=== PATIENT | female | born 1975 | race Caucasian/White ===

== ENCOUNTER 2019-09-18 18:14 | Emergency (ER) | payer OTHER, SELFPAY ==
[2019-09-18 18:27] VITALS: BP 118/78; PULSE 94; RESP 16; TEMP 37.8; O2SAT 100
--- NOTE | 2019-09-18 18:39 | ED.UPPEXIN ---
HPI - Extremity Injury (Upper) General Chief Complaint: Upper Respiratory Infection Stated Complaint: Sore throat Time Seen by Provider: 09/18/19 19:02 Source: patient and family History of Present Illness HPI narrative: Patient presents with sore throat and chest congestion. Patient denies any drooling no trouble swallowing no fever. Patient states she is normally healthy individual. Related Data Home Medications Medication Instructions Recorded Confirmed albuterol sulfate [ProAir HFA] 1 puff INHALATION QID PRN 09/18/19 09/18/19 hydroxyzine HCl 25 mg PO TID PRN 09/18/19 09/18/19 Allergies Allergy/AdvReac Type Severity Reaction Status Date / Time levofloxacin Allergy Intermediate HIVES Verified 09/18/19 18:56 Sulfa (Sulfonamide Allergy Intermediate HIVES Verified 09/18/19 18:56 Antibiotics) Penicillins Allergy Mild Swelling Verified 09/18/19 18:56 Review of Systems Review of Systems: Narrative: CONSTITUTIONAL: Denies chills, or sweats. Reports fever and generalized body aches EYES: Denies visual changes, redness, or discharge. ENT: Denies otalgia. Reports nasal congestion runny nose and sore throat CARDIOVASCULAR: Denies chest pain, palpitations, or edema. RESPIRATORY: Denies dyspnea. Reports occasional cough GASTROINTESTINAL: Denies abdominal pain, nausea, vomiting, or diarrhea. GENITOURINARY: Denies dysuria or hematuria. SKIN: Denies rash or itching. MUSCULOSKELETAL: Denies back pain, joint pain, or myalgia. Reports generalized body aches NEUROLOGIC: Denies headache, numbness, or weakness. PSYCHIATRIC: Denies anxiety or depression. PMFSH Comments At time of signature, agree with nursing past medical, surgical, social and family history. There is no relevant family history pertinent to the presenting complaint Exam Narrative: Exam Narrative: The patient is a well-developed, well-nourished in no acute distress. SKIN: Skin is warm and dry without erythema, swelling or exudate. There is good turgor. No tenting. HEAD: Atraumatic. Normocephalic. No temporal or scalp tenderness. EYES: Moist and bright. Sclera and conjunctivae normal. No discharge. PERRLA. Extraocular motions intact. Gross visual acuity intact. EARS: Pinna is normal shape and contour. Clear external auditory canals. TM pearly hicks with good cone of light, no erythema or suppuration. Bilateral cerumen noted no gross hearing deficit. NOSE: pink, moist mucosa with good air movement. Clear rhinorrhea without nasal flaring. Septum midline. Mouth: moist mucous membranes. THROAT; mild erythema noted to posterior oropharynx with moderate postnasal drainage. Without exudate or ulceration.. Uvula midline. Normal movement of soft palate. Mild pharyngeal erythremia no trismus no exudate able to open mouth fully NECK: Supple and nontender with full range of motion without discomfort. No meningeal signs. LUNGS: Equal and bilateral breath sounds without wheezes, rales or rhonchi. CHEST: The chest wall is without retractions or use of accessory muscles. HEART: Has a regular rate and rhythm without murmur, gallops, click or rub. ABDOMEN: Soft, nontender with positive active bowel sounds. No rebound tenderness. EXTREMITIES: Without cyanosis, clubbing or edema. Equal 2+ distal pulses and 2 second capillary refill noted. NEUROLOGIC: alert, active, . The patient moves all extremities with normal muscle strength. Normal muscle tone is noted. Normal coordination is noted. NO focal neurological findings noted. Course Vital Signs Vital signs: Vital Signs Temperature 37.8 C H 09/18/19 18:27 Pulse Rate 94 09/18/19 18:27 Respiratory Rate 16 09/18/19 18:27 Blood Pressure 118/78 09/18/19 18:27 Pulse Oximetry 100 09/18/19 18:27 Temperature 37.8 C H 09/18/19 18:27 Pulse Rate 94 09/18/19 18:27 Respiratory Rate 16 09/18/19 18:27 Blood Pressure 118/78 09/18/19 18:27 Pulse Oximetry 100 09/18/19 18:27 MDM - Extremity Injury (Upper) Differentia
== END 2019-09-18 19:40 | disposition home or self-care (01) ==
PROVIDERS: Emergency Provider Nurse Practitioner Family
DX: J40 Bronchitis, not specified as acute or chronic (principal); J02.9 Acute pharyngitis, unspecified; J45.909 Unspecified asthma, uncomplicated
CPT/HCPCS: 87880; 99213; G0463

== ENCOUNTER 2019-09-25 10:50 | Emergency (ER) | payer OTHER, SELFPAY ==
--- NOTE | ~2019-09-25 | XR_ITS ---
XR chest 2V DATE: 09/25/2019 11:30 INDICATION: Chest pain for 3 days. Smoker. TECHNIQUE: 2 views COMPARISON: 06/11/2017 two-view chest FINDINGS: Normal heart size. No hilar or mediastinal enlargement. Bilateral hyperinflation. No pulmon jamaal infiltrate or consolidation, pleural effusion or pulmonary vascular congestion or pneumothorax. IMPRESSION: Bilateral hyperinflation; otherwise no active cardiopulmonary disease Reviewed, dictated and finalized at location B. IMPRESSION: Bilateral hyperinflation; otherwise no active cardiopulmonary disea se
[2019-09-25 10:54] VITALS: BP 115/76; PULSE 88; RESP 16; TEMP 36.5; O2SAT 99
--- NOTE | 2019-09-25 11:18 | ED.URI ---
HPI - URI/Sore Throat General Chief Complaint: Upper Respiratory Infection Stated Complaint: sore throat and chest congest Time Seen by Provider: 09/25/19 11:18 Source: patient and family History of Present Illness HPI Narrative: Patient reports worsening chest congestion and cough and right-sided rib pain. Patient presents today with concerns that she might have pneumonia. Patient denies any fever denies any shortness of breath denies any recent travel denies any known exposure to corvid 19. Patient is a longtime pack-a-day smoker. Patient complains of postnasal drainage. But does not take anything [id number] for her symptoms. Patient states she has a few days left of her Keflex that she was given for strep pharyngitis. MD elicited complaint: cough, rhinorrhea and nasal congestion Related Data Home Medications Medication Instructions Recorded Confirmed albuterol sulfate [ProAir HFA] 1 puff INHALATION QID PRN 09/18/19 09/25/19 hydroxyzine HCl 25 mg PO TID PRN 09/18/19 09/25/19 Allergies Allergy/AdvReac Type Severity Reaction Status Date / Time levofloxacin Allergy Intermediate HIVES Verified 09/18/19 18:56 Sulfa (Sulfonamide Allergy Intermediate HIVES Verified 09/18/19 18:56 Antibiotics) Penicillins Allergy Mild Swelling Verified 09/18/19 18:56 Review of Systems Review of Systems: Narrative: CONSTITUTIONAL: Denies chills, or sweats. Reports fever and generalized body aches EYES: Denies visual changes, redness, or discharge. ENT: Denies otalgia. Reports nasal congestion runny nose and sore throat CARDIOVASCULAR: Denies chest pain, palpitations, or edema. RESPIRATORY: Denies dyspnea. Reports occasional cough GASTROINTESTINAL: Denies abdominal pain, nausea, vomiting, or diarrhea. GENITOURINARY: Denies dysuria or hematuria. SKIN: Denies rash or itching. MUSCULOSKELETAL: Denies back pain, joint pain, or myalgia. Reports generalized body aches NEUROLOGIC: Denies headache, numbness, or weakness. PSYCHIATRIC: Denies anxiety or depression. PMFSH Comments At time of signature, agree with nursing past medical, surgical, social and family history. There is no relevant family history pertinent to the presenting complaint Exam Narrative: Exam Narrative: The patient is a well-developed, well-nourished in no acute distress. SKIN: Skin is warm and dry without erythema, swelling or exudate. There is good turgor. No tenting. HEAD: Atraumatic. Normocephalic. No temporal or scalp tenderness. EYES: Moist and bright. Sclera and conjunctivae normal. No discharge. PERRLA. Extraocular motions intact. Gross visual acuity intact. EARS: Pinna is normal shape and contour. Clear external auditory canals. TM pearly hicks with good cone of light, no erythema or suppuration. Bilateral cerumen noted no gross hearing deficit. NOSE: pink, moist mucosa with good air movement. Clear rhinorrhea without nasal flaring. Septum midline. Moderate amount of postnasal drainage no pharyngeal erythremia no pharyngeal exudate no trismus able to open mouth fully Mouth: moist mucous membranes. THROAT; mild erythema noted to posterior oropharynx with moderate postnasal drainage. Without exudate or ulceration.. Uvula midline. Normal movement of soft palate. NECK: Supple and nontender with full range of motion without discomfort. No meningeal signs. LUNGS: Equal and bilateral breath sounds without wheezes, rales or rhonchi. CHEST: The chest wall is without retractions or use of accessory muscles. HEART: Has a regular rate and rhythm without murmur, gallops, click or rub. ABDOMEN: Soft, nontender with positive active bowel sounds. No rebound tenderness. EXTREMITIES: Without cyanosis, clubbing or edema. Equal 2+ distal pulses and 2 second capillary refill noted. NEUROLOGIC: alert, active, . The patient moves all extremities with normal muscle strength. Normal muscle tone is noted. Normal coordination is noted. NO focal neurological findings noted. Course Vital Sign
== END 2019-09-25 12:32 | disposition home or self-care (01) ==
PROVIDERS: Emergency Provider Nurse Practitioner Family
DX: J06.9 Acute upper respiratory infection, unspecified (principal); R09.82 Postnasal drip; F17.200 Nicotine dependence, unspecified, uncomplicated; J45.909 Unspecified asthma, uncomplicated
CPT/HCPCS: 71046; 99213; G0463

== ENCOUNTER 2019-11-19 17:29 | Emergency (ER) | payer OTHER, SELFPAY ==
--- NOTE | 2019-11-19 17:37 | ED.URI ---
HPI - URI/Sore Throat General Chief Complaint: Upper Respiratory Infection Stated Complaint: sore throat/wheezing Time Seen by Provider: 11/19/19 17:37 Source: patient and RN notes reviewed History of Present Illness HPI Narrative: Patient is a 44-year-old female that presents the urgent care with complaints of possible bronchitis with wheezing and sore throat. Patient was treated 2 months ago for strep and bronchitis at our facility and states that she completed the medication as prescribed. Patient states that symptoms returned 2 weeks ago and has been worsening. Patient states that she has been using her inhaler taking her cetirizine intermittently, and ibuprofen. Patient states that her postnasal drainage is increased and she has intermittent chest tightness with the wheezing. Patient denies of any fever, cough, nausea, vomiting. No other acute complaints. With the exception of high anxiety, no acute distress noted. Patient aware of the plan of care. Related Data Home Medications Medication Instructions Recorded Confirmed albuterol sulfate [ProAir HFA] 1 puff INHALATION QID PRN 09/18/19 11/19/19 hydroxyzine HCl 25 mg PO TID PRN 09/18/19 11/19/19 Allergies Allergy/AdvReac Type Severity Reaction Status Date / Time levofloxacin Allergy Intermediate HIVES Verified 11/19/19 17:32 Sulfa (Sulfonamide Allergy Intermediate HIVES Verified 11/19/19 17:32 Antibiotics) Penicillins Allergy Mild Swelling Verified 11/19/19 17:32 Review of Systems Review of Systems: Narrative: CONSTITUTIONAL: Denies fever, chills, or sweats. EYES: Denies visual changes, redness, or discharge. ENT: Reports of sore throat, postnasal drainage, congestion CARDIOVASCULAR: Denies chest pain, palpitations, or edema. RESPIRATORY: Reports of wheezing and intermittent shortness of breath GASTROINTESTINAL: Denies abdominal pain, nausea, vomiting, or diarrhea. GENITOURINARY: Denies dysuria or hematuria. SKIN: Denies rash or itching. MUSCULOSKELETAL: Denies back pain, joint pain, or myalgia. NEUROLOGIC: Denies headache, numbness, or weakness. All other systems reviewed are negative, except as documented in HPI. PMFSH Comments At the time of my signature, I reviewed and agree with the nursing past medical, surgical, social, and family history. There is no relevant family history pertinent to the patient complaint. Exam Narrative: Exam Narrative: GENERAL: This is a well-nourished, well-developed patient, obvious anxiety HEAD: normocephalic, atraumatic. EYES: PERRL. Sclera clear/white. Vision is grossly intact. EARS: External ears normal, auditory canals clear and without drainage, TMs normal without perforation. Hearing grossly intact. NOSE: External nose normal with no obvious nasal discharge, nares without redness, clear rhinorrhea. THROAT: Mucous membranes moist, mild erythema noted to posterior oropharynx with moderate postnasal drainage without exudate or ulceration NECK: Neck supple CARDIOVASCULAR: Regular rate and rhythm without murmurs, gallops, or rubs. RESPIRATORY: Expiratory wheeze to right upper lobe, otherwise clear SKIN: warm, intact with no suspicious lesions or rash, good texture and turgor. NEURO: awake, alert, and oriented to person, place and time. There were no obvious focal neurologic abnormalities. EXTREMITIES: No clubbing, cyanosis, or edema. Course Vital Signs Vital signs: Vital Signs Temperature 99.7 F H 11/19/19 17:43 Pulse Rate 85 11/19/19 17:43 Respiratory Rate 18 11/19/19 17:43 Blood Pressure 125/76 11/19/19 17:43 Pulse Oximetry 100 11/19/19 17:43 Temperature 99.7 F H 11/19/19 17:43 Pulse Rate 85 11/19/19 17:43 Respiratory Rate 18 11/19/19 17:43 Blood Pressure 125/76 11/19/19 17:43 Pulse Oximetry 100 11/19/19 17:43 Reviewed MDM - URI/Sore Throat MDM Narrative Medical decision making narrative: Reviewed lab results with the patient. She is aware that strep swab was negative. We will c
[2019-11-19 17:43] VITALS: BP 125/76; PULSE 85; RESP 18; TEMP 37.6; O2SAT 100
== END 2019-11-19 18:05 | disposition home or self-care (01) ==
PROVIDERS: Emergency Provider Nurse Practitioner Family; PCP Family Medicine
DX: J40 Bronchitis, not specified as acute or chronic (principal); J02.9 Acute pharyngitis, unspecified
CPT/HCPCS: 87081; 87880; 99213; G0463

== ENCOUNTER 2020-05-16 17:39 | Emergency (ER) | payer OTHER, SELFPAY ==
[2020-05-16 17:45] VITALS: BP 106/65; PULSE 100; RESP 20; TEMP 36.9; O2SAT 98
--- NOTE | 2020-05-16 18:03 | ED.URI ---
HPI - URI/Sore Throat General Chief Complaint: Ear Stated Complaint: ear infection Time Seen by Provider: 05/16/20 17:51 Source: patient and RN notes reviewed Mode of arrival: ambulatory Limitations: no limitations History of Present Illness HPI Narrative: Patient presents today complaining of a 1 week history of left ear pain radiating to the left neck, worse over the last 2 days. Associated symptoms include decreased hearing, popping, wetness inside the ear canal. Currently rates her pain 4/10 and has been taking ibuprofen and sinus medication without relief. She has been off a course of clindamycin for the last 2 weeks related to a dental abscess. MD elicited complaint: other (Left ear pain) Related Data Home Medications Medication Instructions Recorded Confirmed albuterol sulfate [ProAir HFA] 1 puff INHALATION QID PRN 09/18/19 05/16/20 albuterol sulfate 2.5 mg CONTINUOUS NEBULIZATION 05/16/20 05/16/20 Q4-6H PRN famotidine 40 mg PO DAILY 05/16/20 05/16/20 fluticasone propion-salmeterol INHALATION 05/16/20 [Wixela Inhub] montelukast mg 05/16/20 omeprazole 05/16/20 Allergies Allergy/AdvReac Type Severity Reaction Status Date / Time levofloxacin Allergy Intermediate HIVES Verified 05/16/20 17:58 Sulfa (Sulfonamide Allergy Intermediate HIVES Verified 05/16/20 17:58 Antibiotics) Penicillins Allergy Mild Swelling Verified 05/16/20 17:58 Review of Systems Review of Systems: Narrative: CONSTITUTIONAL: Denies body aches, fever, chills, or sweats. EYES: Denies visual changes, redness, or discharge. ENT: Denies rhinorrhea, congestion, sore throat. + Left ear pain, decreased hearing, popping CARDIOVASCULAR: Denies chest pain, palpitations, or edema. RESPIRATORY: Denies cough or dyspnea. GASTROINTESTINAL: Denies abdominal pain, nausea, vomiting, or diarrhea. GENITOURINARY: Denies dysuria or hematuria. SKIN: Denies rash, itching, or wounds. MUSCULOSKELETAL: Denies back pain, joint pain, or myalgia. NEUROLOGIC: Denies headache, numbness, tingling, or weakness. PSYCH: Denies depression or anxiety. PMFSH Comments At time of signature, I have reviewed and agree with nursing past medical, surgical, social and family history unless otherwise noted. Please see nursing chart for further information. There is no relevant family history pertinent to the presenting complaint Exam Narrative: Exam Narrative: GENERAL: Well-appearing, well-nourished, and in no acute distress. HEAD: Normocephalic, atraumatic. EYES: EOMI. No redness or drainage. Conjunctivae normal. ENT: Mucous membranes pink and moist. Nares clear. No rhinorrhea. Right TM normal. Left TM intact and retracted without signs of infection. No fluid or material in the canal. No movement tenderness. Throat normal. Uvula midline. NECK: Normal AROM. Supple. No lymphadenopathy. CHEST: No respiratory distress. EXTREMITIES: Normal range of motion. No edema. SKIN: Warm, dry, no rash. Capillary refill normal. Normal skin turgor. NEURO: No focal deficits. Alert and oriented x3. Gait steady. PSYCH: Normal affect. No signs of depression or anxiety. Course Vital Signs Vital signs: Vital Signs Temperature 98.5 F 05/16/20 17:45 Pulse Rate 100 05/16/20 17:45 Respiratory Rate 20 05/16/20 17:45 Blood Pressure 106/65 05/16/20 17:45 Pulse Oximetry 98 05/16/20 17:45 Temperature 98.5 F 05/16/20 17:45 Pulse Rate 100 05/16/20 17:45 Respiratory Rate 20 05/16/20 17:45 Blood Pressure 106/65 05/16/20 17:45 Pulse Oximetry 98 05/16/20 17:45 Reviewed MDM - URI/Sore Throat Differential Diagnosis Differential diagnosis: Likely other (Otitis media, otitis externa, ruptured TM, serous otitis, eustachian tube dysfunction, cerumen impaction) Critical Care Time Critical Care Time Critical Care Time: No Discharge Plan Discharge Clinical Impression: Retracted ear drum Qualifiers: Laterality: left Qualified Code(s): H73.892 - Other
== END 2020-05-16 18:05 | disposition home or self-care (01) ==
PROVIDERS: Emergency Provider Nurse Practitioner; PCP Family Medicine
DX: H73.892 Other specified disorders of tympanic membrane, left ear (principal); J45.909 Unspecified asthma, uncomplicated
CPT/HCPCS: 99213; G0463

== ENCOUNTER 2020-05-26 08:14 | Emergency (ER) | payer OTHER, SELFPAY ==
[2020-05-26 08:20] VITALS: BP 129/73; PULSE 83; RESP 18; TEMP 37; O2SAT 100
[2020-05-26 08:28] VITALS: BP 129/73; PULSE 83; RESP 18; TEMP 37; O2SAT 100
--- NOTE | 2020-05-26 08:37 | ED.URI ---
HPI - URI/Sore Throat General Chief Complaint: Upper Respiratory Infection Stated Complaint: coughing/sinus congestion Source: patient Mode of arrival: ambulatory Limitations: no limitations History of Present Illness HPI Narrative: Patient is a 45-year-old female who presents complaining of purulent sinus drainage, ear pain, facial pressure x10+ days. She reports recently treated for a dental infection approximately 6 weeks ago and reports retracted tympanic membrane which she was treating with [id number] decongestants. She denies fever, she denies sore throat. She reports a history of sinusitis and bronchitis. She denies chest pain or shortness of breath. MD elicited complaint: nasal congestion and sinus pain Related Data Home Medications Medication Instructions Recorded Confirmed albuterol sulfate [ProAir HFA] 1 puff INHALATION QID PRN 09/18/19 05/26/20 albuterol sulfate 2.5 mg CONTINUOUS NEBULIZATION 05/16/20 05/26/20 Q4-6H PRN fluticasone propion-salmeterol 1 inh INHALATION BID 05/16/20 05/26/20 [Wixela Inhub] montelukast 10 mg PO DAILY 05/16/20 05/26/20 omeprazole 40 mg PO DAILY 05/16/20 05/26/20 Allergies Allergy/AdvReac Type Severity Reaction Status Date / Time levofloxacin Allergy Intermediate HIVES Verified 05/26/20 08:27 Sulfa (Sulfonamide Allergy Intermediate HIVES Verified 05/26/20 08:27 Antibiotics) Penicillins Allergy Mild Swelling Verified 05/26/20 08:27 Review of Systems Review of Systems: Narrative: CONSTITUTIONAL: Denies fever, chills, or sweats. EYES: Denies visual changes, redness, or discharge. ENT: Reports rhinorrhea, congestion and left otalgia. CARDIOVASCULAR: Denies chest pain, palpitations, or edema. RESPIRATORY: Reports intermittent cough, denies dyspnea. GASTROINTESTINAL: Denies abdominal pain, nausea, vomiting, or diarrhea. GENITOURINARY: Denies dysuria or hematuria. SKIN: Denies rash or itching. MUSCULOSKELETAL: Denies back pain, joint pain, or myalgia. NEUROLOGIC: Denies headache, numbness, dizziness, or weakness. PSYCHIATRIC: Denies anxiety or depression. [facility] Past Medical History Medical History Anxiety Asthma Sinusitis per patient history UTI (urinary tract infection) Surgical History Surgical History History of orthopedic surgery Social History Social History (Updated 05/26/20 @ 08:42 by KIANNA Burton) Smoking status: Current every day smoker Tobacco type: cigarettes Alcohol intake: current Alcohol use details: Occasional Substance use: never Exam Narrative: Exam Narrative: GENERAL: Well-appearing, well-nourished, and in no acute distress. HEAD: Normocephalic, atraumatic. EYES: No redness or drainage. Conjunctiva are normal. ENT: Mucous membranes pink and moist. Nares clear. Positive rhinorrhea. TMs normal bilaterally. Throat normal mild erythema. Uvula midline. Left maxillary sinus tenderness with palpation NECK: AROM. Supple. No lymphadenopathy. CHEST: No respiratory distress. Clear to auscultation. HEART: Regular rate and rhythm. EXTREMITIES: Normal range of motion. SKIN: Warm, dry, no rash. NEURO: No focal deficits. Alert and oriented x3. Gait steady. PSYCH: Normal affect. No signs of depression or anxiety. Course Vital Signs Vital signs: Vital Signs Temperature 37.0 C 05/26/20 08:20 Pulse Rate 83 05/26/20 08:20 Respiratory Rate 18 05/26/20 08:20 Blood Pressure 129/73 05/26/20 08:20 Pulse Oximetry 100 05/26/20 08:20 Temperature 37.0 C 05/26/20 08:28 Pulse Rate 83 05/26/20 08:28 Respiratory Rate 18 05/26/20 08:28 Blood Pressure 129/73 05/26/20 08:28 Pulse Oximetry 100 05/26/20 08:28 Reviewed. Patient has been instructed to follow-up with her PCP regarding her blood pressure. MDM - URI/Sore Throat MDM Narrative Medical decision making narrative: Patie
== END 2020-05-26 08:50 | disposition home or self-care (01) ==
PROVIDERS: Emergency Provider Nurse Practitioner; PCP Family Medicine
DX: J01.00 Acute maxillary sinusitis, unspecified (principal); F17.210 Nicotine dependence, cigarettes, uncomplicated; J45.909 Unspecified asthma, uncomplicated
CPT/HCPCS: 99213; G0463

== ENCOUNTER 2020-12-07 11:41 | Emergency (ER) | payer OTHER, SELFPAY ==
[2020-12-07 11:45] VITALS: BP 119/75; PULSE 88; RESP 16; TEMP 37.5; O2SAT 100
--- NOTE | 2020-12-07 12:16 | ED.DENTAL ---
HPI - Dental/Oral General Chief complaint: Dental/Oral Stated complaint: dental pain Time Seen by Provider: 12/07/20 12:16 Source: patient Mode of arrival: ambulatory Limitations: no limitations History of Present Illness HPI Narrative: Karena Cross is a 45 yo female with GERD who comes here with dental pain after using a dental tool tooth repair that was bought [id number] for her tooth 18 on lower left, and tooth for on upper left. She is complaining of radiating pain Into her sinuses, concerned about possible infection pain control Related Data Home Medications Medication Instructions Recorded Confirmed albuterol sulfate [ProAir HFA] 1 puff INHALATION QID PRN 09/18/19 12/07/20 albuterol sulfate 2.5 mg CONTINUOUS NEBULIZATION 05/16/20 12/07/20 Q4-6H PRN montelukast 10 mg PO DAILY 05/16/20 12/07/20 omeprazole 40 mg PO DAILY 05/16/20 12/07/20 fluticasone propion-salmeterol 1 inh INHALATION Q12H 12/07/20 12/07/20 [Wixela Inhub] Allergies Allergy/AdvReac Type Severity Reaction Status Date / Time levofloxacin Allergy Intermediate HIVES Verified 12/07/20 12:11 Sulfa (Sulfonamide Allergy Intermediate HIVES Verified 12/07/20 12:11 Antibiotics) Penicillins Allergy Mild Swelling Verified 12/07/20 12:11 Review of Systems Review of Systems: Narrative: CONSTITUTIONAL: Denies fever, chills, sweats. EYES: Denies visual changes, redness, discharge. ENT: Denies rhinorrhea, congestion, sore throat, otalgia. Tooth pain in left lower molar and left upper bicep CARDIOVASCULAR: Denies chest pain, palpitations, edema. RESPIRATORY: Denies dyspnea, wheezing, cough GASTROINTESTINAL: Denies abdominal pain, nausea, vomiting, diarrhea. GENITOURINARY: Denies dysuria, hematuria, abnormal discharge SKIN: Denies rash or itching. NEUROLOGIC: Denies numbness, or focal weakness. PSYCHIATRIC: Denies anxiety or depression. [facility] Past Medical History Medical History Anxiety Asthma Sinusitis per patient history UTI (urinary tract infection) Surgical History Surgical History History of orthopedic surgery Social History Social History Smoking status: Current every day smoker Tobacco type: cigarettes Alcohol intake: current Substance use: never Comments At time of signature, I agree with nursing past medical, surgical, social and family history. There is no relevant family history pertinent to the presenting complaint. Exam Narrative: Exam Narrative: GENERAL: This is a well-nourished, well-developed patient, in mild distress. HEAD: normocephalic, atraumatic. EYES:Sclera clear/white. Vision is grossly intact. EARS: External ears normal. Hearing grossly intact. NOSE: External nose normal without nasal discharge, nares without redness, no rhinorrhea. THROAT: posterior pharynx normal, mucous membranes appear dry; repair obvious in lower left and upper left teeth she is complaining of pain in NECK: Neck supple, non-tender CARDIOVASCULAR: Regular rate and rhythm without murmurs, gallops, or rubs. RESPIRATORY: Clear to auscultation. Breath sounds equal bilaterally. No wheezes, rales, or rhonchi. GASTROINTESTINAL: Abdomen soft, non-tender, SKIN: warm, intact with no suspicious lesions or rash, good texture and turgor. NEURO: awake, alert, and oriented to person, place and time. There were no obvious focal neurologic abnormalities. Steady gait EXTREMITIES: Normal range of motion. BACK: Nontender without deformity Course Course Emergency Course: Patient here for dental pain after placing dental repair in 2 of her teeth Started on clindamycin although patient states the clindamycin makes her nauseated she cannot take penicillin so given 10 clindamycin with caveat to eat with food and use her GERD medication and Tums Tylenol 3 for pain Follow-up with dentist V
== END 2020-12-07 12:43 | disposition home or self-care (01) ==
PROVIDERS: Emergency Provider Nurse Practitioner; PCP Family Medicine
DX: K08.89 Other specified disorders of teeth and supporting structures (principal); K04.7 Periapical abscess without sinus; J45.909 Unspecified asthma, uncomplicated; F17.210 Nicotine dependence, cigarettes, uncomplicated
CPT/HCPCS: 99213; G0463

== ENCOUNTER 2020-12-18 16:01 | Emergency (ER) | payer OTHER, SELFPAY ==
--- NOTE | 2020-12-18 16:02 | ED.SKABFB ---
HPI - Skin/Abscess/Foreign Bdy General Chief complaint: Wound/Laceration Stated complaint: Insect Bite Time Seen by Provider: 12/18/20 16:03 Source: patient and RN notes reviewed History of Present Illness HPI narrative: Patient is a 45-year-old female who presents the urgent care with complaints of possible tick bites to the right and left leg. Patient states that she was [place] the weekend and on Monday she noticed bites to the upper right leg near the groin and behind the left knee. Patient states that she has been using hydrocortisone to the areas without much relief. Reports of pain to the area of the right groin. No other acute complaints. Denies of any fever, chills, nausea, vomiting. No acute distress noted. Patient aware of the plan of care. Some parts of this dictation were generated by voice recognition software and may contain typographical and/or grammatical inaccuracies. Related Data Home Medications Medication Instructions Recorded Confirmed albuterol sulfate [ProAir HFA] 1 puff INHALATION QID PRN 09/18/19 12/18/20 albuterol sulfate 2.5 mg CONTINUOUS NEBULIZATION 05/16/20 12/18/20 Q4-6H PRN omeprazole 40 mg PO DAILY 05/16/20 12/18/20 fluticasone propion-salmeterol 1 inh INHALATION Q12H 12/07/20 12/18/20 [Wixela Inhub] cetirizine 10 mg PO DAILY 12/18/20 12/18/20 famotidine 40 mg PO DAILY 12/18/20 12/18/20 montelukast 10 mg PO DAILY 12/18/20 12/18/20 Allergies Allergy/AdvReac Type Severity Reaction Status Date / Time levofloxacin Allergy Intermediate HIVES Verified 12/18/20 16:15 Sulfa (Sulfonamide Allergy Intermediate HIVES Verified 12/18/20 16:15 Antibiotics) Penicillins Allergy Mild Swelling Verified 12/18/20 16:15 Review of Systems Review of Systems: Narrative: CONSTITUTIONAL: Denies fever, chills, or sweats. EYES: Denies visual changes, redness, or discharge. ENT: Denies rhinorrhea, congestion, sore throat, or otalgia. CARDIOVASCULAR: Denies chest pain, palpitations, or edema. RESPIRATORY: Denies cough or dyspnea. GASTROINTESTINAL: Denies abdominal pain, nausea, vomiting, or diarrhea. GENITOURINARY: Denies dysuria or hematuria. SKIN: Reports of bug bites to the right groin and behind the left knee MUSCULOSKELETAL: Denies back pain, joint pain, or myalgia. NEUROLOGIC: Denies headache, numbness, or weakness. All other systems reviewed are negative, except as documented in HPI. [facility] Past Medical History Medical History Anxiety Asthma Sinusitis per patient history UTI (urinary tract infection) Surgical History Surgical History History of orthopedic surgery Social History Social History Smoking status: Current every day smoker Tobacco type: cigarettes Alcohol intake: current Substance use: never Comments At the time of my signature, I reviewed and agree with the nursing past medical, surgical, social, and family history. There is no relevant family history pertinent to the patient complaint. Exam Narrative: Exam Narrative: GENERAL: This is a well-nourished, well-developed patient, in no apparent distress. HEAD: normocephalic, atraumatic. EYES: PERRL. Sclera clear/white. Vision is grossly intact. EARS: External ears normal NOSE: External nose normal with no obvious nasal discharge, nares without redness, no rhinorrhea. THROAT: Mucous membranes moist NECK: Neck supple CARDIOVASCULAR: Regular rate and rhythm without murmurs, gallops, or rubs. RESPIRATORY: Clear to auscultation. Breath sounds equal bilaterally. No wheezes, rales, or rhonchi. SKIN: Mildly raised erythemic insect bites with slightly surrounding 1 cm erythema noted to the right upper leg near the right groin (2) and behind the left knee; no obvious bull's-eye rash noted NEURO: awake, alert, and oriented to person, p
[2020-12-18 16:11] VITALS: BP 110/80; PULSE 92; RESP 16; TEMP 36.9; O2SAT 100
== END 2020-12-18 16:25 | disposition home or self-care (01) ==
PROVIDERS: Emergency Provider Nurse Practitioner Family; PCP Family Medicine
DX: S70.361A Insect bite (nonvenomous), right thigh, initial encounter (principal); W57.XXXA Bitten or stung by nonvenomous insect and other nonvenomous arthropods, initial encounter; F17.210 Nicotine dependence, cigarettes, uncomplicated
CPT/HCPCS: 99213; G0463

== ENCOUNTER 2021-02-10 18:14 | Emergency (ER) | payer OTHER, SELFPAY ==
--- NOTE | 2021-02-10 18:17 | WPDEDEXPGENP ---
HPI - General Ped General Chief complaint: Upper Respiratory Infection Stated complaint: Sneezing, Neck pain and Chest pain Time Seen by Provider: 02/10/21 18:33 Source: family and RN notes reviewed Mode of arrival: ambulatory Limitations: no limitations Nursing Documentation: reviewed/agree History of Present Illness HPI narrative: 25-year-old female with history of asthma presents with concern for 2-day history of sneezing, postnasal drainage, itchy throat, occasional cough, chest pressure, neck muscle soreness. She denies fever, body aches, chills, sweats. Reports she was recently seen in the emergency department for chest pain and had a work-up, including a chest x-ray and EKG, which were all normal. Reports she recently took a round of clindamycin for a tooth infection, which she is finishing up tomorrow. Reports she stopped taking her allergy medication while she was taking the antibiotic. Reports she took a dose of Benadryl and used her albuterol inhaler earlier this afternoon. She denies trouble breathing. Reports she had Covid in September. MD complaint: Nasal congestion Related Data Home Medications Medication Instructions Recorded Confirmed albuterol sulfate [ProAir HFA] 1 puff INHALATION QID PRN 09/18/19 02/10/21 albuterol sulfate 2.5 mg CONTINUOUS NEBULIZATION 05/16/20 02/10/21 Q4-6H PRN cetirizine 10 mg PO DAILY 12/18/20 02/10/21 famotidine 40 mg PO DAILY 12/18/20 02/10/21 dexlansoprazole [Dexilant] 60 mg PO DAILY 02/10/21 02/10/21 hydroxyzine HCl 25 mg PO TID 02/10/21 02/10/21 Allergies Allergy/AdvReac Type Severity Reaction Status Date / Time levofloxacin Allergy Intermediate HIVES Verified 02/10/21 18:36 Sulfa (Sulfonamide Allergy Intermediate HIVES Verified 02/10/21 18:36 Antibiotics) Penicillins Allergy Mild Swelling Verified 02/10/21 18:36 Pediatric Review of Systems Review of Systems: CONSTITUTIONAL: Denies malaise, chills, sweats, or fever. EYES: Denies visual changes, redness, or discharge. ENT: Reports rhinorrhea, congestion, sneezing, itchy throat. Denies sinus pain, otalgia and sore throat. CARDIOVASCULAR: Denies chest pain, palpitations, or edema. RESPIRATORY: Reports cough. Denies dyspnea. GASTROINTESTINAL: Denies abdominal pain, nausea, vomiting, diarrhea SKIN: Denies rash or itching. MUSCULOSKELETAL: Reports myalgia. NEUROLOGIC: Denies headache. All systems ED: reviewed and negative except as stated PMFSH Past Medical History Medical History Anxiety Asthma Sinusitis per patient history UTI (urinary tract infection) Surgical History Surgical History History of orthopedic surgery Social History Social History Smoking status: Current every day smoker Tobacco type: cigarettes Alcohol intake: current Alcohol use details: Occasional Substance use: never Comments At time of signature, agree with nursing past medical, surgical, social and family history. There is no relevant family history pertinent to the presenting complaint Pediatric Exam Narrative: Physical exam: GENERAL: Well-appearing, well-nourished, and in no acute distress. HEAD: Normocephalic EYES: PERRLA, conjunctivae clear ENT: Nares clear, turbinates edematous and erythematous, clear discharge. Mucous membranes moist. TM pearly padron with dull light reflex bilaterally; no tragal tenderness. Oropharynx not erythematous without lesions. Tonsils not enlarged and without exudate, no drooling, no hoarseness, no trismus, uvula midline. NECK: Supple. No lymphadenopathy CHEST: Clear to auscultation, breath sounds equal. No wheezing, rhonchi, rales, or stridor. No respiratory distress, speaks in full sentences. HEART: Regular rate and rhythm. No murmur heard. SKIN: Warm, dry, no rash. NEURO: Alert and oriented x3. PSYCH: Normal mood and affect Ge
[2021-02-10 18:21] VITALS: BP 110/67; PULSE 72; RESP 14; TEMP 37.6; O2SAT 100
== END 2021-02-10 19:00 | disposition home or self-care (01) ==
PROVIDERS: Emergency Provider Nurse Practitioner; PCP Family Medicine
DX: J00 Acute nasopharyngitis [common cold] (principal); J01.90 Acute sinusitis, unspecified; Z20.822 Contact with and (suspected) exposure to COVID-19; F17.210 Nicotine dependence, cigarettes, uncomplicated; J45.909 Unspecified asthma, uncomplicated
CPT/HCPCS: 87426; 99213; C9803; G0463

== ENCOUNTER 2021-02-26 13:38 | Emergency (ER) | payer OTHER, SELFPAY ==
[2021-02-26 13:43] VITALS: BP 119/73; PULSE 97; RESP 16; TEMP 37.2; O2SAT 99
--- NOTE | 2021-02-26 14:14 | ED.SKABFB ---
HPI - Skin/Abscess/Foreign Bdy General Chief complaint: Skin/Abscess/Foreign Body Stated complaint: rash on leg Time Seen by Provider: 02/26/21 14:00 Source: patient and RN notes reviewed Mode of arrival: ambulatory Limitations: no limitations History of Present Illness HPI narrative: 45-year-old female presents with concern for itchy rash on her left lower leg. She reports she [place] and had what she thought was bug bites, noticed later a growing itchy rash on the left lower leg. Reports she has been putting [id number] hydrocortisone and calamine lotion with little relief. She denies any trouble breathing, wheezing, swollen lips, swollen tongue. She reports she also has recently been taking a Z-Robert for dental infection. Denies any history of allergies to antibiotics. She denies generalized rash. MD complaint: rash Related Data Home Medications Medication Instructions Recorded Confirmed albuterol sulfate [ProAir HFA] 1 puff INHALATION QID PRN 09/18/19 02/26/21 albuterol sulfate 2.5 mg CONTINUOUS NEBULIZATION 05/16/20 02/26/21 Q4-6H PRN cetirizine 10 mg PO DAILY 12/18/20 02/26/21 famotidine 40 mg PO DAILY 12/18/20 02/26/21 dexlansoprazole [Dexilant] 60 mg PO DAILY 02/10/21 02/26/21 hydroxyzine HCl 25 mg PO TID 02/10/21 02/26/21 Allergies Allergy/AdvReac Type Severity Reaction Status Date / Time levofloxacin Allergy Intermediate HIVES Verified 02/26/21 13:53 Sulfa (Sulfonamide Allergy Intermediate HIVES Verified 02/26/21 13:53 Antibiotics) Penicillins Allergy Mild Swelling Verified 02/26/21 13:53 Review of Systems Review of Systems: CONSTITUTIONAL: Denies malaise, chills, sweats, or fever. ENT: Denies swollen lips, swollen tongue CARDIOVASCULAR: Denies chest pain, palpitations, or edema. RESPIRATORY: Denies cough or dyspnea. SKIN: Reports itchy rash on the left lower leg MUSCULOSKELETAL: Denies myalgia. All systems reviewed & are unremarkable except as noted in HPI and below PMFSH Past Medical History Medical History Anxiety Asthma Sinusitis per patient history UTI (urinary tract infection) Surgical History Surgical History History of orthopedic surgery Social History Social History Smoking status: Current every day smoker Tobacco type: cigarettes Alcohol intake: current Alcohol use details: Occasional Substance use: never Comments At time of signature, agree with nursing past medical, surgical, social and family history. There is no relevant family history pertinent to the presenting complaint Exam Narrative: GENERAL: Well-appearing, well-nourished, and in no acute distress. HEAD: Normocephalic, atraumatic. EYES: PERRLA, conjunctivae clear ENT: Mucous membranes moist. NECK: Supple. No lymphadenopathy CHEST: Clear to auscultation. No respiratory distress. HEART: Regular rate and rhythm. SKIN: Warm, dry. Patch of papular rash noted to the left lower leg consistent with contact dermatitis NEURO: Alert and oriented x3. PSYCH: Normal mood and affect Course Course Emergency Course: Discussed with patient drug eruption versus contact dermatitis, at this time rash appears to be contact dermatitis, rash is not generalized, rash is localized to one area and is particularly itchy, appears consistent with contact dermatitis. Patient is aware of diagnosis, understands and agrees to treatment plan. Anticipatory guidance given. Patient agrees to follow-up as directed and is aware of reasons to seek care at the emergency department. Portions of this record may have been created with voice recognition software Vital Signs Vital signs: Vital Signs Temperature 99 F 02/26/21 13:43 Pulse Rate 97 02/26/21 13:43 Respiratory Rate 16 02/26/21 13:43 Blood Pressure 119/73 02/26/21 13:43 Pulse
== END 2021-02-26 14:18 | disposition home or self-care (01) ==
PROVIDERS: Emergency Provider Nurse Practitioner; PCP Family Medicine
DX: L24.7 Irritant contact dermatitis due to plants, except food (principal); F17.210 Nicotine dependence, cigarettes, uncomplicated; J45.909 Unspecified asthma, uncomplicated; F41.9 Anxiety disorder, unspecified
CPT/HCPCS: 99213; G0463

== ENCOUNTER 2021-03-12 12:50 | Emergency (ER) | payer OTHER, SELFPAY ==
--- NOTE | 2021-03-12 12:58 | ED.DENTAL ---
HPI - Dental/Oral General Chief complaint: Dental/Oral Stated complaint: tooth pain Time Seen by Provider: 03/12/21 13:00 Source: patient and RN notes reviewed History of Present Illness HPI Narrative: Patient is a 45-year-old female who presents the urgent care with complaints of dental pain that started approximately 2 to 3 days ago. Patient states that she has a salty taste in her mouth . Patient states that she had 2 teeth pulled, upper left and lower left, 1 week ago today. Patient states that she called her dentist and they were unable to see her until Monday. Patient denies of any fevers, nausea, vomiting. States that she has been taking ibuprofen for the pain. No other acute complaints. No acute distress noted. Patient read a plan of care. Some parts of this dictation were generated by voice recognition software and may contain typographical and/or grammatical inaccuracies. Related Data Home Medications Medication Instructions Recorded Confirmed albuterol sulfate [ProAir HFA] 1 puff INHALATION QID PRN 09/18/19 03/12/21 albuterol sulfate 2.5 mg CONTINUOUS NEBULIZATION 05/16/20 03/12/21 Q4-6H PRN cetirizine 10 mg PO DAILY 12/18/20 03/12/21 famotidine 40 mg PO DAILY 12/18/20 03/12/21 dexlansoprazole [Dexilant] 60 mg PO DAILY 02/10/21 03/12/21 hydroxyzine HCl 25 mg PO TID 02/10/21 03/12/21 Allergies Allergy/AdvReac Type Severity Reaction Status Date / Time levofloxacin Allergy Intermediate HIVES Verified 03/12/21 13:08 Sulfa (Sulfonamide Allergy Intermediate HIVES Verified 03/12/21 13:08 Antibiotics) Penicillins Allergy Mild Swelling Verified 03/12/21 13:08 Review of Systems Review of Systems: CONSTITUTIONAL: Denies fever, chills, or sweats. EYES: Denies visual changes, redness, or discharge. ENT: Denies rhinorrhea, congestion, sore throat, or otalgia. Reports of upper left and lower left dental pain post extraction CARDIOVASCULAR: Denies chest pain, palpitations, or edema. RESPIRATORY: Denies cough or dyspnea. GASTROINTESTINAL: Denies abdominal pain, nausea, vomiting, or diarrhea. GENITOURINARY: Denies dysuria or hematuria. SKIN: Denies rash or itching. MUSCULOSKELETAL: Denies back pain, joint pain, or myalgia. NEUROLOGIC: Denies headache, numbness, or weakness. All other systems reviewed are negative, except as documented in HPI. [facility] Past Medical History Medical History Anxiety Asthma Sinusitis per patient history UTI (urinary tract infection) Surgical History Surgical History History of orthopedic surgery Social History Social History Smoking status: Current every day smoker Tobacco type: cigarettes Alcohol intake: current Alcohol use details: Occasional Substance use: never Comments At the time of my signature, I reviewed and agree with the nursing past medical, surgical, social, and family history. There is no relevant family history pertinent to the patient complaint. Exam Narrative: GENERAL: This is a well-nourished, well-developed patient, in no apparent distress. HEAD: normocephalic, atraumatic. EYES: PERRL. Sclera clear/white. Vision is grossly intact. EARS: External ears normal NOSE: External nose normal with no obvious nasal discharge, nares without redness, no rhinorrhea. THROAT: Mucous membranes moist, posterior pharynx clear. DENTAL: Upper left first premolar and lower left first molar extracted with mild surrounding tissue trauma without notable abscess or erythema. Drainage noted from the socket to the upper left NECK: Neck supple, non-tender without lymphadenopathy, masses or thyromegaly. CARDIOVASCULAR: Regular rate and rhythm without murmurs, gallops, or rubs. RESPIRATORY: Clear to auscultation. Breath sounds equal bilaterally. No wheezes, rales, or rhonchi. SKIN: warm, intact with no [place]
[2021-03-12 13:06] VITALS: BP 125/74; PULSE 86; RESP 16; TEMP 37.3; O2SAT 100
[2021-03-12 13:09] VITALS: BP 125/74; PULSE 86; RESP 16; TEMP 37.3; O2SAT 100
== END 2021-03-12 13:25 | disposition home or self-care (01) ==
PROVIDERS: Emergency Provider Nurse Practitioner Family; PCP Family Medicine
DX: K08.89 Other specified disorders of teeth and supporting structures (principal); F41.9 Anxiety disorder, unspecified; F17.210 Nicotine dependence, cigarettes, uncomplicated
CPT/HCPCS: 99213; G0463

== ENCOUNTER 2021-06-28 15:13 | Emergency (ER) | payer OTHER, SELFPAY ==
[2021-06-28 15:19] VITALS: BP 113/67; PULSE 77; RESP 16; TEMP 37.2; O2SAT 100
--- NOTE | 2021-06-28 16:33 | ED.URI ---
HPI - URI/Sore Throat General Chief Complaint: Upper Respiratory Infection Stated Complaint: Chest Congestion/Cough Source: patient and RN notes reviewed Limitations: no limitations History of Present Illness HPI Narrative: The unvaccinated patient, a smoker/nondrinker on inhalers, presents with half week history of cough, sneezing, nasal congestion and occasional wheezing. Her baseline inhaler use is about biweekly-and she is using them more; she's had steroids about annually, never been hospitalized for this. No fever, earache, sore throat; no loss of taste/smell, CP, S OB, vomiting/diarrhea?she had Covid disease in the last year Related Data Home Medications Medication Instructions Recorded Confirmed albuterol sulfate [ProAir HFA] 1 puff INHALATION QID PRN 09/18/19 03/12/21 albuterol sulfate 2.5 mg CONTINUOUS NEBULIZATION 05/16/20 03/12/21 Q4-6H PRN cetirizine 10 mg PO DAILY 12/18/20 03/12/21 famotidine 40 mg PO DAILY 12/18/20 03/12/21 dexlansoprazole [Dexilant] 60 mg PO DAILY 02/10/21 03/12/21 hydroxyzine HCl 25 mg PO TID 02/10/21 03/12/21 Allergies Allergy/AdvReac Type Severity Reaction Status Date / Time levofloxacin Allergy Intermediate HIVES Verified 03/12/21 13:08 Sulfa (Sulfonamide Allergy Intermediate HIVES Verified 03/12/21 13:08 Antibiotics) Penicillins Allergy Mild Swelling Verified 03/12/21 13:08 Review of Systems Review of Systems: General/Constitutional: No weight loss,fever Eyes: N0: Redness,discharge Ears/Nose/Throat: No: Epistaxis,ear discharge Respiratory: Denies: Hemoptysis Gastrointestinal: No Vomiting, Bleeding-rectal Skin: No Lumps, eruption Neurologic: No Focal Weakness,Sz Hematologic: Denies: Petechiae/Purpura Psychiatric: No: Suicida ideationl All Other Systems: Reviewed and Negative PMF Past Medical History Medical History Anxiety Asthma Sinusitis per patient history UTI (urinary tract infection) Surgical History Surgical History History of orthopedic surgery Social History Social History Smoking status: Current every day smoker Tobacco type: cigarettes Alcohol intake: current Alcohol use details: Occasional Substance use: never Comments At time of signature, agree with nursing past medical, surgical, social and family history. There is no relevant family history pertinent to the presenting complaint Exam Narrative: General Appearance: Well appearing, Well nourished EYE: PERRLA, Conjunctiva clear Ears: Auditory canal normal, TM normal Nose: Rhinorrhea, Mucousal erythema Mouth/Throat: MM moist, Uvula midline, Pharyngeal erythema Neck: Supple, No adenopathy Respiratory: No respiratory distress, Breath sounds equal, CTA without wheeze now Cardiovascular: RRR, No JVD Musculoskeletal: Non tender, Normal strength Skin: Warm, Dry Neurological: A&O x3, CN II-XII intact Psychiatric: Normal mood, Normal affect Course Vital Signs Vital signs: Vital Signs Temperature 98.9 F 06/28/21 15:19 Pulse Rate 77 06/28/21 15:19 Respiratory Rate 16 06/28/21 15:19 Blood Pressure 113/67 06/28/21 15:19 Pulse Oximetry 100 06/28/21 15:19 Temperature 98.9 F 06/28/21 15:19 Pulse Rate 77 06/28/21 15:19 Respiratory Rate 16 06/28/21 15:19 Blood Pressure 113/67 06/28/21 15:19 Pulse Oximetry 100 06/28/21 15:19 Discharge Plan Discharge Clinical Impression: Wheezing-associated respiratory infection (WARI) Patient Disposition: Home, Self-Care Condition: Stable Instructions: Antibiotic Form Prescriptions: New prednisone 20 mg tablet 60 mg PO DAILY Qty: 15 RF: 0 cefuroxime axetil 500 mg tablet 500 mg PO Q12H Qty: 14 RF: 0 albuterol sulfate 2.5 mg /3 mL (0.083 %) solution for nebulization 2.5 mg inhalation Q6-8H PRN (Re
== END 2021-06-28 16:40 | disposition home or self-care (01) ==
PROVIDERS: Emergency Provider Emergency Medicine
DX: J98.01 Acute bronchospasm (principal); Z20.822 Contact with and (suspected) exposure to COVID-19; J45.909 Unspecified asthma, uncomplicated; F17.210 Nicotine dependence, cigarettes, uncomplicated; F41.9 Anxiety disorder, unspecified
CPT/HCPCS: 99213; G0463

== ENCOUNTER → 2021-06-30 02:59 | Outpatient (CLI) | payer OTHER, SELFPAY ==
[2021-06-30 19:39] LABS: SARS-CoV-2 RNA PCR Positive
== END ==
PROVIDERS: PCP Family Medicine; Visit Provider Emergency Medicine
DX: U07.1 COVID-19 (principal); J98.8 Other specified respiratory disorders
CPT/HCPCS: C9803; U0003; U0005

== ENCOUNTER 2021-07-21 16:59 | Emergency (ER) | payer OTHER, SELFPAY ==
[2021-07-21 17:13] VITALS: BP 124/79; PULSE 76; RESP 16; TEMP 37.2; O2SAT 100
--- NOTE | 2021-07-21 17:14 | ED.FEMALEGU ---
HPI - Female Genitourinary General Chief complaint: Urogenital-Female Stated complaint: uti complaints Time Seen by Provider: 07/21/21 17:14 Source: patient and family Limitations: no limitations History of Present Illness HPI Narrative: PATIENT PRESENTS WITH BURNING WITH URINATION, URINARY FREQUENCY AND VOIDS OFTEN. NO GROSS HEMATURIA NO FLANK PAIN NO ABDOMINAL PAIN AND NO PELVIC PAIN. NO CONCERN FOR STI. Patient states she was called in an antibiotic prescription by her primary care provider as long as Pyridium. Patient states she did not want to take the medication that she was sure that she had a urinary tract infection. MD elicited complaint: dysuria and UTI Related Data Home Medications Medication Instructions Recorded Confirmed albuterol sulfate [ProAir HFA] 1 puff INHALATION QID PRN 09/18/19 03/12/21 albuterol sulfate 2.5 mg CONTINUOUS NEBULIZATION 05/16/20 03/12/21 Q4-6H PRN cetirizine 10 mg PO DAILY 12/18/20 03/12/21 famotidine 40 mg PO DAILY 12/18/20 03/12/21 hydroxyzine HCl 25 mg PO TID 02/10/21 03/12/21 bupropion HCl 100 mg PO BID 07/21/21 07/21/21 Allergies Allergy/AdvReac Type Severity Reaction Status Date / Time levofloxacin Allergy Intermediate HIVES Verified 07/21/21 17:14 Sulfa (Sulfonamide Allergy Intermediate HIVES Verified 07/21/21 17:14 Antibiotics) Penicillins Allergy Mild Swelling Verified 07/21/21 17:14 Review of Systems Review of Systems: CONSTITUTIONAL: Denies fever, chills, or sweats. EYES: Denies visual changes, redness, or discharge. ENT: Denies rhinorrhea, congestion, sore throat, or otalgia. CARDIOVASCULAR: Denies chest pain, palpitations, or edema. RESPIRATORY: Denies cough or dyspnea. GASTROINTESTINAL: Denies abdominal pain, nausea, vomiting, or diarrhea. GENITOURINARY: Denies dysuria or hematuria. SKIN: Denies rash or itching. MUSCULOSKELETAL: Denies back pain, joint pain, or myalgia. NEUROLOGIC: Denies headache, numbness, or weakness. PSYCHIATRIC: Denies anxiety or depression. [facility] Past Medical History Medical History Anxiety Asthma Sinusitis per patient history UTI (urinary tract infection) Surgical History Surgical History History of orthopedic surgery Social History Social History Smoking status: Current every day smoker Tobacco type: cigarettes Alcohol intake: current Alcohol use details: Occasional Substance use: never Comments At time of signature, agree with nursing past medical, surgical, social and family history. There is no relevant family history pertinent to the presenting complaint Exam Narrative: GENERAL: Well-appearing, well-nourished, and in no acute distress. HEAD: Normocephalic, atraumatic. EYES: PERRLA and EOMI. ENT: Nares clear, no rhinorrhea or epistaxis. Mucous membranes moist. NECK: Supple. CHEST: Clear to auscultation. No respiratory distress. HEART: Regular rate and rhythm. No murmur heard. Normal peripheral pulses. ABDOMEN: Soft, nontender, nondistended, normal active bowel sounds. EXTREMITIES: Normal range of motion. No edema. SKIN: Warm, dry, no rash. NEURO: No focal deficits. Alert and oriented x3. Carroll Coma Scale Eye Opening: Spontaneous 4 Carroll Coma Scale Motor: Obeys Commands 6 Wilfred Coma Scale Verbal: Oriented 5 Carroll Coma Scale Total 15 Course Course Level of Care: Express Care Visit Vital Signs Vital signs: Vital Signs Temperature 37.2 C 07/21/21 17:13 Pulse Rate 76 07/21/21 17:13 Respiratory Rate 16 07/21/21 17:13 Blood Pressure 124/79 07/21/21 17:13 Pulse Oximetry 100 07/21/21 17:13 Temperature 37.2 C 07/21/21 17:21 Pulse Rate 76 07/21/21 17:21 Respiratory Rate 16 07/21/21 17:21 Blood Pressure 124/79 07/21/21 17:21 Pulse Oximetry 100 07/21/21 17:21 Critical dx considered an
[2021-07-21 17:21] VITALS: BP 124/79; PULSE 76; RESP 16; TEMP 37.2; O2SAT 100
== END 2021-07-21 17:32 | disposition home or self-care (01) ==
PROVIDERS: Emergency Provider Nurse Practitioner Family; PCP Family Medicine
DX: N39.0 Urinary tract infection, site not specified (principal); F17.210 Nicotine dependence, cigarettes, uncomplicated; J45.909 Unspecified asthma, uncomplicated
CPT/HCPCS: 81003; 87086; 99213; G0463

== ENCOUNTER 2021-10-23 18:11 | Emergency (ER) | payer OTHER, SELFPAY ==
[2021-10-23 18:23] VITALS: BP 117/71; PULSE 89; RESP 16; TEMP 37.6; O2SAT 100
--- NOTE | 2021-10-23 18:29 | ED.SKABFB ---
HPI - Skin/Abscess/Foreign Bdy General Chief complaint: Skin/Abscess/Foreign Body Stated complaint: Rash Time Seen by Provider: 10/23/21 18:29 Source: patient Mode of arrival: ambulatory Limitations: no limitations History of Present Illness HPI narrative: 46-year-old female presented for complaint of rash to the right lower inner leg for over 1 week. States PCP prescribed doxy, she has one day left. Also applying hydrocortisone, Calamine, and SATNAM to the rash without relief. States it is getting bigger and continues to itch. Denies pain or drainage. Denies other locations of rash. Also c/o lesion to right side of tongue for 2 weeks. At the onset it was painful, she was prescribed Nystatin, but denies relief. Denies current pain, bleeding, drainage to the site. Current smoker 3/4PPD. MD complaint: rash Related Data Home Medications Medication Instructions Recorded Confirmed albuterol sulfate [ProAir HFA] 1 puff INHALATION QID PRN 09/18/19 07/21/21 cetirizine 10 mg PO DAILY 12/18/20 10/23/21 famotidine 40 mg PO DAILY 12/18/20 10/23/21 hydroxyzine HCl 25 mg PO TID 02/10/21 10/23/21 ergocalciferol (vitamin D2) 1,250 mcg PO DAILY 10/23/21 10/23/21 [id number] 1 applic TOPICAL BID 10/23/21 10/23/21 [Triple Antibiotic] Allergies Allergy/AdvReac Type Severity Reaction Status Date / Time levofloxacin Allergy Intermediate HIVES Verified 07/21/21 17:14 Sulfa (Sulfonamide Allergy Intermediate HIVES Verified 07/21/21 17:14 Antibiotics) Penicillins Allergy Mild Swelling Verified 07/21/21 17:14 Review of Systems Review of Systems: CONSTITUTIONAL: Denies body aches, fever, chills, or sweats. EYES: Denies visual changes, redness, or discharge. ENT: Reports lesion to tongue denies rhinorrhea, congestion, sore throat, or otalgia. CARDIOVASCULAR: Denies chest pain, palpitations, or edema. RESPIRATORY: Denies cough or dyspnea. GASTROINTESTINAL: Denies abdominal pain, nausea, vomiting, or diarrhea. GENITOURINARY: Denies dysuria or hematuria. SKIN: Reports rash, itching MUSCULOSKELETAL: Denies back pain, joint pain, or myalgia. NEUROLOGIC: Denies headache, numbness, tingling, or weakness. PSYCH: Denies depression or anxiety. [facility] Past Medical History Medical History Anxiety Asthma Sinusitis per patient history UTI (urinary tract infection) Surgical History Surgical History History of orthopedic surgery Social History Social History Smoking status: Current every day smoker Tobacco type: cigarettes Alcohol intake: current Alcohol use details: Occasional Substance use: never Comments At time of signature, I have reviewed and agree with nursing past medical, surgical, social and family history unless otherwise noted. Please see nursing chart for further information. There is no relevant family history pertinent to the presenting complaint Exam Narrative: GENERAL: Well-appearing HEAD: Normocephalic, atraumatic. EYES: conjunctivae clear, and EOMI. ENT: Mucous membranes moist. Oropharynx without edema, erythema or lesions. NECK: Supple. No lymphadenopathy CHEST: Clear to auscultation. No respiratory distress. HEART: Regular rate and rhythm. SKIN: Warm, dry. Patch of erythematous papules to right medial lower leg c/w folliculitis approx 4cm diameter area, no vesicles or drainage. NEURO: Alert and oriented x3. PSYCH: Normal mood and affect Course Course Emergency Course: Patient is aware of diagnosis, understands and agrees to treatment plan. Anticipatory guidance given. Patient agrees to follow-up as directed and is aware of reasons to seek care at the emergency department. Portions of this record may have been created with voice recognition software Level of Care: Express Care Visit Vital Signs Vital signs
== END 2021-10-23 18:45 | disposition home or self-care (01) ==
PROVIDERS: Emergency Provider Nurse Practitioner Family; PCP Family Medicine
DX: L30.9 Dermatitis, unspecified (principal); K14.9 Disease of tongue, unspecified; F17.210 Nicotine dependence, cigarettes, uncomplicated; J45.909 Unspecified asthma, uncomplicated; F41.9 Anxiety disorder, unspecified
CPT/HCPCS: 99213; G0463

== ENCOUNTER 2021-11-14 10:27 | Emergency (ER) | payer OTHER, SELFPAY ==
[2021-11-14 10:30] VITALS: BP 107/73; PULSE 92; RESP 14; TEMP 37.6; O2SAT 100
[2021-11-14 10:42] VITALS: BP 107/73; PULSE 92; RESP 14; TEMP 37.6; O2SAT 100
--- NOTE | 2021-11-14 10:44 | ED.URI ---
HPI - URI/Sore Throat General Chief Complaint: Upper Respiratory Infection Stated Complaint: chest congestion and head pressure Time Seen by Provider: 11/14/21 10:44 Source: patient and RN notes reviewed Mode of arrival: ambulatory Limitations: no limitations History of Present Illness HPI Narrative: 46-year-old female presented for complaint of sinus pressure and congestion, cough productive of yellow sputum, occasional wheezing and sneezing over the last 4 days. She took a negative at home COVID test today. She has been using her nebulizer machine, albuterol as needed and Sudafed. She takes daily Zyrtec. She states her son was diagnosed with bronchitis. Denies nausea, vomiting, diarrhea, fever or chills. She smokes half pack per day. Also endorses rash to the right lower leg is persistent since she was seen here last 10/2021. MD elicited complaint: cough Related Data Home Medications Medication Instructions Recorded Confirmed albuterol sulfate [ProAir HFA] 1 puff INHALATION QID PRN 09/18/19 11/14/21 cetirizine 10 mg PO DAILY 12/18/20 11/14/21 famotidine 40 mg PO DAILY 12/18/20 11/14/21 hydroxyzine HCl 25 mg PO TID 02/10/21 11/14/21 ergocalciferol (vitamin D2) 1,250 mcg PO DAILY 10/23/21 11/14/21 Allergies Allergy/AdvReac Type Severity Reaction Status Date / Time levofloxacin Allergy Intermediate HIVES Verified 11/14/21 10:39 Sulfa (Sulfonamide Allergy Intermediate HIVES Verified 11/14/21 10:39 Antibiotics) Penicillins Allergy Mild Swelling Verified 11/14/21 10:39 Review of Systems Review of Systems: All systems reviewed & are unremarkable except as noted in HPI and below PMFSH Past Medical History Medical History Anxiety Asthma Sinusitis per patient history UTI (urinary tract infection) Surgical History Surgical History History of orthopedic surgery Social History Social History Smoking status: Current every day smoker Tobacco type: cigarettes Alcohol intake: current Alcohol use details: Occasional Substance use: never Exam Narrative: GENERAL: well appearing HEAD: Normocephalic EYES: conjunctivae clear ENT: Mucous membranes moist. TM pearly padron with dull light reflex bilaterally; no tragal tenderness. Oropharynx erythematous without lesions or exudate, no drooling, no hoarseness, no trismus, uvula midline. NECK: Supple. No lymphadenopathy CHEST: Clear to auscultation, breath sounds equal. No wheezing, rhonchi, rales, or stridor. HEART: Regular rate and rhythm. No murmur heard. SKIN: Warm, dry, erythematous patch to right inner lower leg; approx 4cm diameter, no active drainage. NEURO: Alert and oriented x3. PSYCH: Normal mood and affect Course Course Emergency Course: Patient is aware of diagnosis, understands and agrees to treatment plan. Anticipatory guidance given. Patient agrees to follow-up as directed and is aware of reasons to seek care at the emergency department. Portions of this record may have been created with voice recognition software Level of Care: Express Care Visit Vital Signs Vital signs: Vital Signs Temperature 99.7 F H 11/14/21 10:30 Pulse Rate 92 11/14/21 10:30 Respiratory Rate 14 11/14/21 10:30 Blood Pressure 107/73 11/14/21 10:30 Pulse Oximetry 100 11/14/21 10:30 Temperature 99.7 F H 11/14/21 10:42 Pulse Rate 92 11/14/21 10:42 Respiratory Rate 14 11/14/21 10:42 Blood Pressure 107/73 11/14/21 10:42 Pulse Oximetry 100 11/14/21 10:42 reviewed MDM - URI/Sore Throat MDM Narrative Medical decision making narrative: She is in stable condition and appropriate for outpt treatment and f/u. States she is supposed to see the metal forger's assistant in a few weeks in [facility]. Differential Diagnosis Differential diagnosis: Likely upper respiratory infection, sinusiti
== END 2021-11-14 10:56 | disposition home or self-care (01) ==
PROVIDERS: Emergency Provider Nurse Practitioner Family; PCP Family Medicine
DX: L30.9 Dermatitis, unspecified (principal); J06.9 Acute upper respiratory infection, unspecified; F17.200 Nicotine dependence, unspecified, uncomplicated
CPT/HCPCS: 99213; G0463

== ENCOUNTER 2021-12-20 12:25 | Emergency (ER) | payer OTHER, SELFPAY ==
[2021-12-20 12:30] VITALS: BP 116/81; PULSE 88; RESP 16; TEMP 37; O2SAT 100
--- NOTE | 2021-12-20 12:50 | ED.SKABFB ---
HPI - Skin/Abscess/Foreign Bdy General Chief complaint: Skin/Abscess/Foreign Body Stated complaint: spots all over Time Seen by Provider: 12/20/21 12:52 Source: patient and RN notes reviewed Mode of arrival: ambulatory Limitations: no limitations History of Present Illness HPI narrative: 46-year-old female presents concern for bug bites. Reports after spending the night at [facility] sleeping in the parent bed she began itching. She reports she was itching overnight and when she got home yesterday morning she noticed she had red itchy bumps on her back, groin, under her breasts and on her ankles. She reports she is use hydrocortisone cream. Reports she already takes cetirizine during the day and hydroxyzine at night. She denies lip swelling, tongue swelling, trouble breathing. MD complaint: insect bite/sting Related Data Home Medications Medication Instructions Recorded Confirmed albuterol sulfate 90 mcg/actuation 1 puff inhalation QID PRN sob 09/18/19 12/20/21 aerosol inhaler (ProAir HFA) cetirizine 10 mg tablet 10 mg PO DAILY 12/18/20 12/20/21 famotidine 40 mg tablet 40 mg PO DAILY 12/18/20 12/20/21 hydroxyzine HCl 25 mg tablet 25 mg PO TID 02/10/21 12/20/21 ergocalciferol (vitamin D2) 1,250 1,250 mcg PO DAILY 10/23/21 12/20/21 mcg (50,000 unit) capsule Allergies Allergy/AdvReac Type Severity Reaction Status Date / Time levofloxacin Allergy Intermediate HIVES Verified 11/14/21 10:39 Sulfa (Sulfonamide Allergy Intermediate HIVES Verified 11/14/21 10:39 Antibiotics) Penicillins Allergy Mild Swelling Verified 11/14/21 10:39 Review of Systems Review of Systems: CONSTITUTIONAL: Denies malaise, chills, sweats, or fever. EYES: Denies redness, or discharge. ENT: Denies rhinorrhea, congestion, swollen lips, swollen tongue CARDIOVASCULAR: Denies chest pain, palpitations, or edema. RESPIRATORY: Denies cough or dyspnea. GASTROINTESTINAL: Denies abdominal pain, nausea, vomiting SKIN: Reports itchy bumps on her back, groin, under her breasts and legs MUSCULOSKELETAL: Denies joint pain or myalgia. NEUROLOGIC: Denies headache. All systems reviewed & are unremarkable except as noted in HPI and below PMFSH Past Medical History Medical History Anxiety Asthma Sinusitis per patient history UTI (urinary tract infection) Surgical History Surgical History History of orthopedic surgery Social History Social History Smoking status: Current every day smoker Tobacco type: cigarettes Alcohol intake: current Alcohol use details: Occasional Substance use: never Comments At time of signature, agree with nursing past medical, surgical, social and family history. There is no relevant family history pertinent to the presenting complaint Exam Narrative: GENERAL: Well-appearing, well-nourished, and in no acute distress. HEAD: Normocephalic, atraumatic. EYES: PERRLA, conjunctivae clear, and EOMI. ENT: Mucous membranes moist. Oropharynx without edema, erythema or lesions. NECK: Supple. No lymphadenopathy CHEST: Clear to auscultation. No respiratory distress. HEART: Regular rate and rhythm. SKIN: Warm, dry. [place] papules noted to the back, under the breast, axillary area, groin and ankles consistent with bug bites NEURO: Alert and oriented x3. PSYCH: Normal mood and affect Course Course Emergency Course: Patient is aware of diagnosis, understands and agrees to treatment plan. Anticipatory guidance given. Patient agrees to follow-up as directed and is aware of reasons to seek care at the emergency department. Portions of this record may have been created with voice recognition software Level of Care: Express Care Visit Vital Signs Vital signs: Vital Signs Temperature 98.6 F 12/20/21 12:30 Pulse Rate 88 12/20/21 12:30 Respi
== END 2021-12-20 13:12 | disposition home or self-care (01) ==
PROVIDERS: Emergency Provider Nurse Practitioner; PCP Family Medicine
DX: S20.469A Insect bite (nonvenomous) of unspecified back wall of thorax, initial encounter (principal); S20.369A Insect bite (nonvenomous) of unspecified front wall of thorax, initial encounter; S30.861A Insect bite (nonvenomous) of abdominal wall, initial encounter; S90.562A Insect bite (nonvenomous), left ankle, initial encounter; S90.561A Insect bite (nonvenomous), right ankle, initial encounter; W57.XXXA Bitten or stung by nonvenomous insect and other nonvenomous arthropods, initial encounter; F17.210 Nicotine dependence, cigarettes, uncomplicated; J45.909 Unspecified asthma, uncomplicated; F41.9 Anxiety disorder, unspecified
CPT/HCPCS: 99213; G0463

== ENCOUNTER 2022-06-06 11:36 | Emergency (ER) | payer OTHER, SELFPAY ==
[2022-06-06 11:42] VITALS: BP 96/68; PULSE 88; RESP 16; TEMP 36.8; O2SAT 100
--- NOTE | 2022-06-06 12:22 | ED.URI ---
HPI - URI/Sore Throat General Chief Complaint: Upper Respiratory Infection Stated Complaint: wheezing Time Seen by Provider: 06/06/22 12:22 Source: patient, RN notes reviewed and old records reviewed Mode of arrival: ambulatory Limitations: no limitations History of Present Illness HPI Narrative: 47-year-old female presents to the [facility] with complaints of wheezing For couple weeks. Has been using her inhaler. Denies chest pain. Denies fevers. Denies fevers denies abdominal pain. No nausea vomiting or diarrhea. Related Data Home Medications Medication Instructions Recorded Confirmed albuterol sulfate 90 mcg/actuation 1 puff inhalation QID PRN sob 09/18/19 12/20/21 aerosol inhaler (ProAir HFA) cetirizine 10 mg tablet 10 mg PO DAILY 12/18/20 12/20/21 famotidine 40 mg tablet 40 mg PO DAILY 12/18/20 12/20/21 hydroxyzine HCl 25 mg tablet 25 mg PO TID 02/10/21 12/20/21 ergocalciferol (vitamin D2) 1,250 1,250 mcg PO DAILY 10/23/21 12/20/21 mcg (50,000 unit) capsule Allergies Allergy/AdvReac Type Severity Reaction Status Date / Time levofloxacin Allergy Intermediate HIVES Verified 11/14/21 10:39 Sulfa (Sulfonamide Allergy Intermediate HIVES Verified 11/14/21 10:39 Antibiotics) Penicillins Allergy Mild Swelling Verified 11/14/21 10:39 Review of Systems Review of Systems: All systems reviewed & are unremarkable except as noted in HPI and below Constitutional: Constitutional: Reports no additional constitutional complaints, Denies body ache(s), Denies chills, Denies fever(s) and Denies headache(s) Eyes: Eyes: Reports no additional eye complaints ENT: Reports system reviewed and no additional complaints, except as documented and Denies headache(s) Cardiovascular: Cardiovascular: Reports no additional cardiovascular complaints, Denies chest pain and Denies dyspnea Respiratory: Respiratory: Reports as per HPI, Denies chest congestion, Reports cough, Denies dyspnea and Reports wheezing Gastrointestinal: Gastrointestinal: Reports no additional gastrointestinal complaints and Denies abdominal pain Musculoskeletal: Musculoskeletal: Reports no additional musculoskeletal complaints Integumentary/Breasts: Skin/Breast: Reports system reviewed and no additional complaints, except as docu Neurologic: Reports system reviewed and no additional complaints, except as documented and Denies headache(s) Psychiatric: Psychiatric: Reports no additional psychiatric complaints Allergic/Immunologic: Allergic/Immunologic: Reports no additional allergic/immunologic complaints PMF Past Medical History Medical History Anxiety Asthma Sinusitis per patient history UTI (urinary tract infection) Surgical History Surgical History History of orthopedic surgery Social History Social History Smoking status: Current every day smoker Tobacco type: cigarettes Alcohol intake: current Alcohol use details: Occasional Substance use: never Comments At the time of my signature, I reviewed and agree with the nursing past medical, surgical, social, and family history. There is no relevant family history pertinent to the patient complaint. Exam Const: General: cooperative, healthy appearing, comfortable, no acute distress, well developed, alert and well nourished Nutritional Appearance: well nourished Orientation/consciousness: patient oriented x3 Limitations: no limitations HENMT: Head: normal to inspection Ears: external ears normal Face/Nose/Sinus: Normal external nose present, Normal nares present, Normal nasal mucous membranes and turbinates present and normal facial exam Face and sinus: normal facial exam Mouth: Yes Normal oral and palatal mucosa present, Yes lip normal and Yes moist mucous membranes abnormal Eyes: General: appearance normal, both
== END 2022-06-06 12:43 | disposition home or self-care (01) ==
PROVIDERS: Emergency Provider Nurse Practitioner; PCP Family Medicine
DX: J40 Bronchitis, not specified as acute or chronic (principal); F17.210 Nicotine dependence, cigarettes, uncomplicated
CPT/HCPCS: 99213; G0463

== ENCOUNTER 2022-10-07 09:45 | Emergency (ER) | payer OTHER, SELFPAY ==
[2022-10-07 09:56] VITALS: BP 114/75; PULSE 88; RESP 16; TEMP 37.2; O2SAT 100
--- NOTE | 2022-10-07 10:21 | ED.URI ---
HPI - URI/Sore Throat General Chief Complaint: Upper Respiratory Infection Stated Complaint: sinus infection/swollen right eye Source: patient and RN notes reviewed History of Present Illness HPI Narrative: 47 yo F presents to urgent care with complaints of bilateral sinus pressure and pain. Pt states she was dx with a sinus infection about 3 weeks ago and was given doxycyline. Pt states she completed the meds and her symptoms resolved. Pt states about 3 days ago, her congestion and sinus pain returned. Pt states she woke up this morning with an area of swelling and redness to her right inner eyelid. Pt states she placed a warm compress in the area and the swelling and redness improved but the redness is still there slightly. Pt reports pain around her eyes bilaterally. Denies any fevers, chills, sore throat, ear pain, EOM pain, or visual disturbance. Unsure if she had any discharge from her eyes. Related Data Home Medications Medication Instructions Recorded Confirmed albuterol sulfate 90 mcg/actuation 1 puff inhalation QID PRN sob 09/18/19 12/20/21 aerosol inhaler (ProAir HFA) cetirizine 10 mg tablet 10 mg PO DAILY 12/18/20 12/20/21 famotidine 40 mg tablet 40 mg PO DAILY 12/18/20 12/20/21 hydroxyzine HCl 25 mg tablet 25 mg PO TID 02/10/21 12/20/21 ergocalciferol (vitamin D2) 1,250 1,250 mcg PO DAILY 10/23/21 12/20/21 mcg (50,000 unit) capsule montelukast 10 mg tablet mg 10/07/22 omeprazole 40 mg capsule,delayed mg 10/07/22 release Allergies Allergy/AdvReac Type Severity Reaction Status Date / Time levofloxacin Allergy Intermediate HIVES Verified 10/07/22 10:01 Sulfa (Sulfonamide Allergy Intermediate HIVES Verified 10/07/22 10:01 Antibiotics) Penicillins Allergy Mild Swelling Verified 10/07/22 10:01 Review of Systems Review of Systems: Pertinent positives and pertinent negatives per HPI. [facility] Past Medical History Medical History Anxiety Asthma Sinusitis per patient history UTI (urinary tract infection) Surgical History Surgical History History of orthopedic surgery Social History Social History Smoking status: Current every day smoker Tobacco type: cigarettes Alcohol intake: current Alcohol use details: Occasional Substance use: never Comments At the time of my signature, I reviewed and agree with the nursing past medical, surgical, social, and family history. There is no relevant family history pertinent to the patient complaint. Exam Narrative: GENERAL: This is a well-nourished, well-developed patient, in no apparent distress. HEAD: normocephalic, atraumatic. EYES: Sclera clear/white. Vision is grossly intact. Conjunctivae is flesh-colored, non-injected. Right upper corner of medial eyelid noted to have a 1 cm area of erythema. EARS: External ears normal, auditory canals clear and without drainage, TMs normal without perforation. Hearing grossly intact. NOSE: External nose normal with no obvious nasal discharge, nares without redness, no rhinorrhea. THROAT: Mucous membranes moist, posterior pharynx clear. NECK: Neck supple, non-tender without lymphadenopathy, masses or thyromegaly. CARDIOVASCULAR: Regular rate. RESPIRATORY: No respiratory distress SKIN: warm, intact with no suspicious lesions or rash, good texture and turgor. NEURO: awake, alert, and oriented to person, place and time. There were no obvious focal neurologic abnormalities. Course Course Level of Care: Express Care Visit Vital Signs Vital signs: Vital Signs Temperature 98.9 F 10/07/22 09:56 Pulse Rate 88 10/07/22 09:56 Respiratory Rate 16 10/07/22 09:56 Blood Pressure 114/75 10/07/22 09:56 Pulse Oximetry 100 10/07/22 09:56 Oxygen Delivery Room Air 10/07/22 09:56 Temperature 98.9 F 10/07/22 09:56 Pulse Rate 88
== END 2022-10-07 10:30 | disposition home or self-care (01) ==
PROVIDERS: Emergency Provider Nurse Practitioner Family; PCP Family Medicine
DX: J32.0 Chronic maxillary sinusitis (principal); F17.210 Nicotine dependence, cigarettes, uncomplicated; J45.909 Unspecified asthma, uncomplicated; F41.9 Anxiety disorder, unspecified
CPT/HCPCS: 99213; G0463

== ENCOUNTER 2022-12-23 13:23 | Emergency (ER) | payer OTHER, SELFPAY ==
--- NOTE | 2022-12-23 13:28 | ED.FEMALEGU ---
HPI - Female Genitourinary General Chief complaint: Urogenital-Female Stated complaint: UTI Time Seen by Provider: 12/23/22 13:27 Source: patient Mode of arrival: ambulatory Limitations: no limitations History of Present Illness HPI Narrative: Karena is a 47-year-old female patient presenting to the clinic today with complaints of possible urinary tract infection x2 weeks. She reports she is having burning, frequency, and urgency with urination. Denies any fever or chills. Does report some low back pain and lower abdominal pain. She denies any vaginal discharge or foul odor. Not sexually active. Has IUD. Related Data Home Medications Medication Instructions Recorded Confirmed albuterol sulfate 90 mcg/actuation 1 puff inhalation QID PRN sob 09/18/19 12/23/22 aerosol inhaler (ProAir HFA) cetirizine 10 mg tablet 10 mg PO DAILY 12/18/20 12/23/22 famotidine 40 mg tablet 40 mg PO DAILY 12/18/20 12/20/21 hydroxyzine HCl 25 mg tablet 25 mg PO TID 02/10/21 12/23/22 ergocalciferol (vitamin D2) 1,250 1,250 mcg PO DAILY 10/23/21 12/20/21 mcg (50,000 unit) capsule montelukast 10 mg tablet mg 10/07/22 omeprazole 40 mg capsule,delayed mg 10/07/22 release Allergies Allergy/AdvReac Type Severity Reaction Status Date / Time levofloxacin Allergy Intermediate HIVES Verified 12/23/22 13:36 Sulfa (Sulfonamide Allergy Intermediate HIVES Verified 12/23/22 13:36 Antibiotics) Penicillins Allergy Mild Swelling Verified 12/23/22 13:36 Review of Systems Review of Systems: Pertinent positives per HPI. Patient denies any fever, chills, rash, headache, visual changes, dizziness, cough, runny nose, sore throat, shortness of breath, chest pain, palpitations, nausea, vomiting, diarrhea, or constipation. [facility] Past Medical History Medical History Anxiety Asthma Sinusitis per patient history UTI (urinary tract infection) Surgical History Surgical History History of orthopedic surgery Social History Social History Smoking status: Current every day smoker Tobacco type: cigarettes Alcohol intake: current Alcohol use details: Occasional Substance use: never Comments At the time of my signature, I reviewed and agree with the nursing past medical, surgical, social, and family history. There is no relevant family history pertinent to the patient complaint. Exam Narrative: General: Well-developed, well nourished, in no apparent distress. Head: Normocephalic, atraumatic. Cardio: Regular rate and rhythm, s1 and s2 normal, no murmur appreciated. Resp: Clear to auscultation bilaterally, no rhonchi, rales, wheezing or rubs. Abdomen: Soft, pliable, bowel sounds present in all quadrants, non-tender to palpation, no organomegly, no CVAT tenderness. Course Course Emergency Course: Portions of this record may have been created with voice recognition software. Level of Care: Express Care Visit Vital Signs Vital signs: Vital signs reviewed MDM - Female Genitourinary MDM Narrative Medical decision making narrative: At the time of visit patient is resting comfortably on the exam table. UA shows trace of intact blood otherwise normal. Will send for culture. Will place patient on Pyridium for symptoms. Supportive measures were discussed with the patient she voiced understanding of discharge instructions and agrees to treatment plan. Differential Diagnosis Differential diagnosis: Likely urinary tract infection, bacterial vaginosis, vaginitis and cystitis (Constipation,) Discharge Plan Discharge Clinical Impression: Dysuria, Urinary frequency, Urinary urgency Patient Disposition: Home, Self-Care Condition: Stable Instructions: Antibiotic Form, Dysuria (ED), Urinary Urgency and Frequency (DC) Additional Instruction
[2022-12-23 13:36] VITALS: BP 114/74; PULSE 82; RESP 16; TEMP 37.2; O2SAT 100
== END 2022-12-23 13:48 | disposition home or self-care (01) ==
PROVIDERS: Emergency Provider Nurse Practitioner Family; PCP Family Medicine
DX: R30.0 Dysuria (principal); R39.15 Urgency of urination; R35.0 Frequency of micturition; J45.909 Unspecified asthma, uncomplicated; F17.210 Nicotine dependence, cigarettes, uncomplicated
CPT/HCPCS: 81003; 87086; 87088; 99213; G0463

== ENCOUNTER 2023-06-09 08:47 | Emergency (ER) | payer OTHER, SELFPAY ==
--- NOTE | ~2023-06-09 | XR_ITS ---
EXAMINATION: XR chest 2V DATE: 06/09/2023 09:15 INDICATION: Cough. TECHNIQUE: Frontal and lateral views of the chest were obtained. COMPARISON: Chest 2 views 09/24/2021 FINDINGS: There is no pneumonia, pleural effusion, or pneumothorax. The heart size is normal. IMPRESSION: 1. No acute cardiopulmonary disease. Reviewed, dictated and finalized at location [facility]. [employer]
[2023-06-09 08:51] VITALS: BP 108/68; PULSE 100; RESP 16; TEMP 36.9; O2SAT 97
--- NOTE | 2023-06-09 09:23 | ED.URI ---
HPI - URI/Sore Throat General Chief Complaint: Upper Respiratory Infection Stated Complaint: Cough Time Seen by Provider: 06/09/23 08:49 Source: patient Mode of arrival: ambulatory Limitations: no limitations History of Present Illness HPI Narrative: Karena is a 48-year-old female patient presenting to the clinic with complaints of cough and congestion x1 week. She reports she does have periods of shortness of breath with wheezing. Does have a history of asthma. Is currently taking azithromycin for this however she feels as though she may need a steroid. MD elicited complaint: sore throat and nasal congestion Related Data Home Medications Medication Instructions Recorded Confirmed albuterol sulfate 90 mcg/actuation 1 puff inhalation QID PRN sob 09/18/19 06/09/23 aerosol inhaler (ProAir HFA) cetirizine 10 mg tablet 10 mg PO DAILY 12/18/20 06/09/23 famotidine 40 mg tablet 40 mg PO DAILY 12/18/20 06/09/23 hydroxyzine HCl 25 mg tablet 25 mg PO TID 02/10/21 06/09/23 ergocalciferol (vitamin D2) 1,250 1,250 mcg PO DAILY 10/23/21 06/09/23 mcg (50,000 unit) capsule montelukast 10 mg tablet 10 mg PO DAILY 10/07/22 06/09/23 omeprazole 40 mg capsule,delayed 40 mg PO DAILY 10/07/22 06/09/23 release Allergies Allergy/AdvReac Type Severity Reaction Status Date / Time levofloxacin Allergy Intermediate HIVES Verified 06/09/23 09:34 Sulfa (Sulfonamide Allergy Intermediate HIVES Verified 06/09/23 09:34 Antibiotics) Penicillins Allergy Mild Swelling Verified 06/09/23 09:34 Review of Systems Review of Systems: Pertinent positives per HPI. Patient denies any fever, chills, rash, headache, visual changes, dizziness, chest pain, palpitations, nausea, vomiting, diarrhea, constipation, abdominal pain, or any urinary issues. [facility] Past Medical History Medical History Anxiety Asthma Sinusitis per patient history UTI (urinary tract infection) Surgical History Surgical History History of orthopedic surgery Social History Social History Smoking status: Current every day smoker Tobacco type: cigarettes Alcohol intake: current Alcohol use details: Occasional Substance use: never Comments At the time of my signature, I reviewed and agree with the nursing past medical, surgical, social, and family history. There is no relevant family history pertinent to the patient complaint. Exam Narrative: General: Well-developed, well nourished, in no apparent distress Head: Normocephalic, atraumatic Eyes: Pupils equally round and reactive to light bilaterally, EOM intact, sclera and conjunctive clear, no discharge, lids normal Ears: TMs intact and clear, ear canals clear, no drainage, grossly hearing normal. Nose: Nares patent, no discharge, no inflammation, no sinus tenderness. Mouth: Oral pharynx without lesions or masses, good dentition, MMM. Neck: Supple, trachea midline, no enlargement of anterior or posterior cervical nodes, no thyroid masses or goiter palpable. Cardio: Regular rate and rhythm, s1 and s2 normal, no murmur appreciated. Resp: Expiratory wheezing and rhonchi, no rales or rubs Course Course Emergency Course: Portions of this record may have been created with voice recognition software. Level of Care: Express Care Visit Vital Signs Vital signs: Vital Signs Temperature 36.9 C 06/09/23 08:51 Pulse Rate 100 06/09/23 08:51 Respiratory Rate 16 06/09/23 08:51 Blood Pressure 108/68 06/09/23 08:51 Pulse Oximetry 97 06/09/23 08:51 Oxygen Delivery Room Air 06/09/23 08:51 Temperature 36.9 C 06/09/23 08:51 Pulse Rate 100 06/09/23 08:51 Respiratory Rate 16 06/09/23 08:51 Blood Pressure 108/68 06/09/23 08:51 Pulse Oximetry 97 06/09/23 08:51 Oxygen Delivery Room Air 12
== END 2023-06-09 09:41 | disposition home or self-care (01) ==
PROVIDERS: Emergency Provider Nurse Practitioner Family; PCP Family Medicine
DX: J40 Bronchitis, not specified as acute or chronic (principal); F41.9 Anxiety disorder, unspecified; J45.909 Unspecified asthma, uncomplicated; F17.210 Nicotine dependence, cigarettes, uncomplicated
CPT/HCPCS: 71046; 99213; G0463

== ENCOUNTER 2023-07-09 14:22 | Emergency (ER) | payer OTHER, SELFPAY ==
[2023-07-09 14:28] VITALS: BP 106/73; PULSE 99; RESP 18; TEMP 36.6; O2SAT 100
--- NOTE | 2023-07-09 14:45 | ED.GENADULT ---
HPI - General Adult General Chief complaint: Upper Respiratory Infection Stated complaint: sinus infection Source: patient, RN notes reviewed and old records reviewed Mode of arrival: ambulatory Limitations: no limitations History of Present Illness HPI narrative: 40-year-old female presents to [facility] with complaints sinus congestion, sinus pressure/ pain, headache, postnasal drip for 3 weeks. Patient states he has been taking [id number] medications and was on steroids with no relief. MD complaint: Sinus congestion/pain Onset (ago): week(s) (3) Related Data Home Medications Medication Instructions Recorded Confirmed albuterol sulfate 90 mcg/actuation 2 puff inhalation BID PRN sob 09/18/19 07/09/23 aerosol inhaler (ProAir HFA) cetirizine 10 mg tablet 10 mg PO DAILY 12/18/20 07/09/23 famotidine 40 mg tablet 40 mg PO DAILY 12/18/20 07/09/23 hydroxyzine HCl 25 mg tablet 25 mg PO TID 02/10/21 07/09/23 ergocalciferol (vitamin D2) 1,250 1,250 mcg PO DAILY 10/23/21 07/09/23 mcg (50,000 unit) capsule montelukast 10 mg tablet 10 mg PO DAILY 10/07/22 07/09/23 omeprazole 40 mg capsule,delayed 40 mg PO DAILY 10/07/22 07/09/23 release budesonide-formoterol HFA 160 2 puff inhalation BID 07/09/23 07/09/23 mcg-4.5 mcg/actuation aerosol inhaler (Symbicort) pseudoephedrine HCl 30 mg tablet See Rx Instructions .Route .COMPLEX 07/09/23 07/09/23 Allergies Allergy/AdvReac Type Severity Reaction Status Date / Time levofloxacin Allergy Intermediate HIVES Verified 07/09/23 14:32 Sulfa (Sulfonamide Allergy Intermediate HIVES Verified 07/09/23 14:32 Antibiotics) Penicillins Allergy Mild Swelling Verified 07/09/23 14:32 Review of Systems Constitutional: Constitutional: Reports no additional constitutional complaints, Denies body ache(s), Denies chills, Denies fatigue, Denies fever(s) and Denies headache(s) Eyes: Eyes: Reports no additional eye complaints and Denies blurry vision ENT: Reports system reviewed and no additional complaints, except as documented, Denies vertigo, Denies dizziness, Denies ear discharge, Denies otalgia, Denies facial pain, Denies headache(s), Reports nasal congestion, Reports nasal discharge, Reports sinus pain, Reports sinus pressure and Denies sore throat Comments: yellow nasal discharge Cardiovascular: Cardiovascular: Reports no additional cardiovascular complaints, Denies chest pain, Denies chest pain at rest, Denies rapid heart rate and Denies dyspnea Respiratory: Respiratory: Reports no additional respiratory complaints, Denies chest congestion, Denies cough, Denies pain on inspiration, Denies pain with cough and Denies dyspnea Gastrointestinal: Gastrointestinal: Denies abdominal pain, Denies diarrhea, Denies nausea and Denies vomiting Integumentary/Breasts: Skin/Breast: Denies rash Neurologic: Reports system reviewed and no additional complaints, except as documented, Denies vertigo, Denies dizziness and Denies headache(s) Endocrine: Endocrine: Denies fatigue PMFSH Past Medical History Medical History Anxiety Asthma Sinusitis per patient history UTI (urinary tract infection) Surgical History Surgical History History of orthopedic surgery Social History Social History Smoking status: Current every day smoker Tobacco type: cigarettes Alcohol intake: current Alcohol use details: Occasional Substance use: never Comments At the time of my signature, I reviewed and agree with the nursing past medical, surgical, social, and family history. There is no relevant family history pertinent to the patient complaint. Exam Const: General: cooperative, healthy appearing, no acute distress and well nourished Nutritional Appearance: well nourished Orientation/consciousness: patient oriented x3
== END 2023-07-09 14:55 | disposition home or self-care (01) ==
PROVIDERS: Emergency Provider Registered Nurse; PCP Family Medicine
DX: J32.9 Chronic sinusitis, unspecified (principal); J45.909 Unspecified asthma, uncomplicated; F17.210 Nicotine dependence, cigarettes, uncomplicated
CPT/HCPCS: 99213; G0463

== ENCOUNTER 2023-09-26 08:31 | Emergency (ER) | payer OTHER, SELFPAY ==
--- NOTE | ~2023-09-26 | XR_ITS ---
[id number] DATE: 09/26/2023 09:40 INDICATION: Right-sided chest pain. Cough for one week. Crackles. TECHNIQUE: PA chest. 3 views of the right ribs. COMPARISON: None FINDINGS: No right rib fracture is detected. Normal heart size. No hilar or mediastinal enlargement. No pulmonary infiltrate or consolidation, ple ural effusion or pulmonary vascular congestion or pneumothorax. Mild degenerative spurring of the thoracic spine. Minimal levoscoliosis of the upper thoracic spine. IMPRESSION: No right rib fractures detected No active cardiopulmonary disease Reviewed, dictated and finalized at [facility]. Reviewed, dictated and finalized at location [facility].
[2023-09-26 08:48] VITALS: BP 116/69; PULSE 80; RESP 20; TEMP 36.9; O2SAT 97
--- NOTE | 2023-09-26 09:11 | ED.URI ---
HPI - URI/Sore Throat General Chief Complaint: Upper Respiratory Infection Stated Complaint: coughing / wheezing Time Seen by Provider: 09/26/23 09:11 Source: patient Mode of arrival: ambulatory Limitations: no limitations History of Present Illness HPI Narrative: 48-year-old female with hx asthma presented for complaint of right lower rib pain, onset this morning. Patient endorses having a persistent cough since influenza about 7-10 days ago. The cough causes more pain to the rib site, reports tenderness when touched. She has been taking [id number] meds with minimal relief. Endorses shortness of breath and wheezing at times.Denies hemoptysis, chest pain, palpitations, n/v/d/f/c. She has been using her albuterol and Symbicort. Smoke 1/2ppd, but not as much since she has been sick and coughing. Related Data Home Medications Medication Instructions Recorded Confirmed albuterol sulfate 90 mcg/actuation 2 puff inhalation BID PRN sob 09/18/19 09/26/23 aerosol inhaler (ProAir HFA) hydroxyzine HCl 25 mg tablet 25 mg PO TID 02/10/21 09/26/23 budesonide-formoterol HFA 160 2 puff inhalation BID 07/09/23 09/26/23 mcg-4.5 mcg/actuation aerosol inhaler (Symbicort) baclofen 10 mg tablet 10 mg PO BID PRN Spasms 09/26/23 09/26/23 cimetidine 400 mg tablet 400 mg PO BID 09/26/23 09/26/23 lidocaine 5 % topical patch 1 patch transdermal DAILY 09/26/23 09/26/23 montelukast 10 mg tablet 10 mg PO DAILY 09/26/23 09/26/23 Allergies Allergy/AdvReac Type Severity Reaction Status Date / Time levofloxacin Allergy Intermediate HIVES Verified 09/26/23 09:10 Sulfa (Sulfonamide Allergy Intermediate HIVES Verified 09/26/23 09:10 Antibiotics) Penicillins Allergy Mild Swelling Verified 09/26/23 09:10 Review of Systems Review of Systems: CONSTITUTIONAL: Denies body aches, fever, chills, or sweats. EYES: Denies visual changes, redness, or discharge. ENT: Denies rhinorrhea, congestion, sore throat, or otalgia. CARDIOVASCULAR: Denies chest pain, palpitations, or edema. RESPIRATORY: Reports cough, sob, wheezing. GASTROINTESTINAL: Denies abdominal pain, nausea, vomiting, or diarrhea. SKIN: Denies rash, itching, or wounds. MUSCULOSKELETAL: Reports right rib pain Denies back pain, joint pain, or myalgia. NEUROLOGIC: Denies headache, numbness, tingling, or weakness. All systems reviewed & are unremarkable except as noted in HPI and below PMFSH Past Medical History Medical History Anxiety Asthma Sinusitis per patient history UTI (urinary tract infection) Surgical History Surgical History History of orthopedic surgery Social History Social History Smoking status: Current every day smoker Tobacco type: cigarettes Alcohol intake: current Alcohol use details: Occasional Substance use: never Comments At time of signature, I have reviewed and agree with nursing past medical, surgical, social and family history unless otherwise noted. Please see nursing chart for further information. There is no relevant family history pertinent to the presenting complaint Exam Narrative: GENERAL: Well-appearing, in no acute distress. EYES: EOMI. No redness or drainage. Conjunctivae normal. ENT: Mucous membranes pink and moist. No rhinorrhea. TMs normal bilaterally. Throat normal. Uvula midline. NECK: Normal AROM. Supple. CHEST: Faint scattered Wheezing to right lung munoz; coarse throughout left munoz. Right lower anterior rib (10) mild tenderness with palpation. No respiratory distress. Talkative without difficulty. HEART: Regular rate and rhythm. No murmur appreciated. SKIN: Warm, dry, no rash. Capillary refill normal. Normal skin turgor. NEURO: Alert and oriented x3. Gait steady. PSYCH: Normal affect. Course Course Emergency Course: Daisy
== END 2023-09-26 10:00 | disposition home or self-care (01) ==
PROVIDERS: Emergency Provider Nurse Practitioner Family; PCP Family Medicine
DX: J40 Bronchitis, not specified as acute or chronic (principal); R07.81 Pleurodynia; F17.210 Nicotine dependence, cigarettes, uncomplicated; J45.909 Unspecified asthma, uncomplicated; F41.9 Anxiety disorder, unspecified
CPT/HCPCS: 71101; 99213; G0463

== ENCOUNTER 2023-10-17 14:29 | Emergency (ER) | payer OTHER, SELFPAY ==
[2023-10-17 14:37] VITALS: BP 111/78; PULSE 89; RESP 18; TEMP 36.7; O2SAT 99
--- NOTE | 2023-10-17 15:40 | ED.GENADULT ---
HPI - General Adult General Chief complaint: Upper Respiratory Infection Stated complaint: mouth feels on fire Source: patient Mode of arrival: ambulatory Limitations: no limitations History of Present Illness HPI narrative: Patient presents for evaluation of upper respiratory symptoms. She was evaluated here in the middle of last month for respiratory symptoms. She had a chest x-ray which was normal per reports. She was discharge with steroids which she took as directed. Her cough improved. She followed up with her primary care provider last week and was given a prescription for azithromycin for sinus symptoms. Her symptoms persist. She has sinus congestion, thick yellow nasal discharge and pressure in frontal and maxillary sinuses. No fever, chills, nausea, or vomiting. She has developed a burning sensation to her tongue and hard palate of her mouth. She does use symbicort. She smokes 1/2 ppd. She has tried sudafed with some improvement in her symptoms. Related Data Home Medications Medication Instructions Recorded Confirmed albuterol sulfate 90 mcg/actuation 2 puff inhalation BID PRN sob 09/18/19 10/17/23 aerosol inhaler (ProAir HFA) hydroxyzine HCl 25 mg tablet 25 mg PO TID 02/10/21 10/17/23 budesonide-formoterol HFA 160 2 puff inhalation BID 07/09/23 10/17/23 mcg-4.5 mcg/actuation aerosol inhaler (Symbicort) baclofen 10 mg tablet 10 mg PO BID PRN Spasms 09/26/23 10/17/23 lidocaine 5 % topical patch 1 patch transdermal DAILY 09/26/23 10/17/23 montelukast 10 mg tablet 10 mg PO DAILY 09/26/23 10/17/23 pantoprazole 40 mg tablet,delayed 40 mg PO DAILY 10/17/23 10/17/23 release Allergies Allergy/AdvReac Type Severity Reaction Status Date / Time levofloxacin Allergy Intermediate HIVES Verified 10/17/23 14:48 Sulfa (Sulfonamide Allergy Intermediate HIVES Verified 10/17/23 14:48 Antibiotics) Penicillins Allergy Mild Swelling Verified 10/17/23 14:48 Review of Systems Review of Systems: CONSTITUTIONAL: Denies fever, chills, or sweats. EYES: Denies visual changes, redness, or discharge. ENT: Reports sinus congestion, thick yellow drainage from the nares, burning sensation to the tongue and hard palate CARDIOVASCULAR: Denies chest pain, palpitations, or edema. RESPIRATORY: Denies cough or dyspnea. GASTROINTESTINAL: Denies abdominal pain, nausea, vomiting, or diarrhea. GENITOURINARY: Denies dysuria or hematuria. SKIN: Denies rash or itching. MUSCULOSKELETAL: Denies back pain, joint pain, or myalgia. NEUROLOGIC: Denies headache, numbness, dizziness, or weakness. PSYCHIATRIC: Denies anxiety or depression. [facility] Past Medical History Medical History Anxiety Asthma Sinusitis per patient history UTI (urinary tract infection) Surgical History Surgical History History of orthopedic surgery Family History Family History Mother Family history non-contributory Social History Social History (Updated 10/17/23 @ 15:57 by KIANNA Danielson, ) Smoking packs per day: 0.5 Smoking cigarettes per day: 10.0 Smoking status: Current every day smoker Tobacco type: cigarettes Alcohol intake: current Alcohol use details: Occasional Substance use: never Living arrangements: with family Gender identity (if verbalized by the patient): Female Sexual Orientation (if Verbalized by the Patient): Straight or Heterosexual Spiritual care concerns: No Exam Narrative: GENERAL: Well-appearing, well-nourished, and in no acute distress. HEAD: Normocephalic, atraumatic. There is frontal and bilateral maxillary sinus tenderness EYES: PERRLA and EOMI. ENT: Nares clear, no rhinorrhea or epistaxis. Mucous membranes moist. There is white exudate noted to the tongue. Oropharynx without tonsillar hypertrophy. Steven
== END 2023-10-17 15:15 | disposition home or self-care (01) ==
PROVIDERS: Emergency Provider Nurse Practitioner; PCP Family Medicine
DX: B37.0 Candidal stomatitis (principal); J01.90 Acute sinusitis, unspecified; F17.210 Nicotine dependence, cigarettes, uncomplicated; J45.909 Unspecified asthma, uncomplicated; F41.9 Anxiety disorder, unspecified
CPT/HCPCS: 99213; G0463

== ENCOUNTER 2024-04-30 17:36 | Emergency (ER) | payer OTHER, SELFPAY ==
[2024-04-30 17:46] VITALS: BP 110/76; PULSE 80; RESP 16; TEMP 36.6; O2SAT 99
--- NOTE | 2024-04-30 17:57 | ED.URI ---
HPI - URI/Sore Throat General Chief Complaint: Upper Respiratory Infection Stated Complaint: Cough Time Seen by Provider: 04/30/24 17:57 Source: patient, RN notes reviewed and old records reviewed Mode of arrival: ambulatory Limitations: no limitations History of Present Illness HPI Narrative: 49 year old female who presents to [facility] care with complaints of cough, sore throat, nasal congestion and drainage for the past 5-6 days. Patient is 1/2 ppd smoker and does have history of asthma and uses Symbicort daily and has Albuterol inhaler. Patient reports no acute dyspnea,denies any fevers or body aches or acute headaches. Patient reports that she has been taking Theraflu and Robitussin cough medication. MD elicited complaint: cough, sore throat, rhinorrhea and nasal congestion Pertinent past history: asthma and other (tobacco use) Onset (ago): day(s) (5-6 days) Able to tolerate fluids by mouth: Yes Treatments prior to arrival: other (Theraflu and Robitussin) Related Data Home Medications Medication Instructions Recorded Confirmed albuterol sulfate 90 mcg/actuation 2 puff inhalation BID PRN sob 09/18/19 10/17/23 aerosol inhaler (ProAir HFA) hydroxyzine HCl 25 mg tablet 25 mg PO TID 02/10/21 10/17/23 budesonide-formoterol HFA 160 2 puff inhalation BID 07/09/23 10/17/23 mcg-4.5 mcg/actuation aerosol inhaler (Symbicort) baclofen 10 mg tablet 10 mg PO BID PRN Spasms 09/26/23 10/17/23 pantoprazole 40 mg tablet,delayed 40 mg PO DAILY 10/17/23 10/17/23 release Allergies Allergy/AdvReac Type Severity Reaction Status Date / Time levofloxacin Allergy Intermediate HIVES Verified 10/17/23 14:48 Sulfa (Sulfonamide Allergy Intermediate HIVES Verified 10/17/23 14:48 Antibiotics) Penicillins Allergy Mild Swelling Verified 10/17/23 14:48 Review of Systems Review of Systems: CONSTITUTIONAL: Reports malaise, no chills, sweats, or fever. EYES: Denies visual changes, redness, or discharge. ENT: Reports rhinorrhea, congestion, sinus pain, no otalgia and positive for sore throat. CARDIOVASCULAR: Denies chest pain, palpitations, or edema. RESPIRATORY: Reports cough.? Denies any acute dyspnea. GASTROINTESTINAL: Denies abdominal pain, nausea, vomiting, diarrhea SKIN: Denies rash or itching. MUSCULOSKELETAL: Denies myalgia. NEUROLOGIC: Denies headache. All systems reviewed & are unremarkable except as noted in HPI and below PMFSH Past Medical History Medical History (Updated 05/02/24 @ 15:25 by Serene Darling NP) Anxiety Asthma Cervical stenosis of spinal canal Dental abscess GERD (gastroesophageal reflux disease) Sinusitis per patient history UTI (urinary tract infection) Surgical History Surgical History History of orthopedic surgery left shoulder Family History Family History Mother Family history non-contributory Social History Social History Smoking packs per day: 0.5 Smoking cigarettes per day: 10.0 Smoking status: Current every day smoker Tobacco type: cigarettes Alcohol intake: current Alcohol use details: Occasional Substance use: never Living arrangements: with family Gender identity (if verbalized by the patient): Female Sexual Orientation (if Verbalized by the Patient): Straight or Heterosexual Spiritual care concerns: No Comments At time of signature, agree with nursing past medical, surgical, social and family history. There is no relevant family history pertinent to the presenting complaint Exam Narrative: GENERAL: Well-appearing, well-nourished, and in no acute distress. HEAD: Normocephalic EYES: PERRLA, conjunctivae clear ENT: Nares clear, turbinates edematous and erythematous, clear discharge, sinus pressure. Mucous membranes moist. TM pearly padron with dull light refle
[2024-04-30 18:03] LABS: EDSTREPNEGPOS1 Negative (Negative)
== END 2024-04-30 19:35 | disposition home or self-care (01) ==
PROVIDERS: Emergency Provider Registered Nurse; PCP Family Medicine
DX: J06.9 Acute upper respiratory infection, unspecified (principal); J02.9 Acute pharyngitis, unspecified; F17.210 Nicotine dependence, cigarettes, uncomplicated; J45.909 Unspecified asthma, uncomplicated; K21.9 Gastro-esophageal reflux disease without esophagitis; M48.02 Spinal stenosis, cervical region; F41.9 Anxiety disorder, unspecified
CPT/HCPCS: 87081; 87880; 99213; G0463

== ENCOUNTER 2024-09-02 18:35 | Emergency (ER) | payer OTHER, SELFPAY ==
[2024-09-02 18:42] VITALS: BP 106/76; PULSE 86; RESP 16; TEMP 37.4; O2SAT 98
--- NOTE | 2024-09-02 19:00 | ED.URI ---
HPI - URI/Sore Throat General Chief Complaint: Upper Respiratory Infection Stated Complaint: SINUS INFECTION Time Seen by Provider: 09/02/24 19:03 Source: patient and RN notes reviewed Mode of arrival: ambulatory Limitations: no limitations History of Present Illness HPI Narrative: 49-year-old female presents with concern for sinus pain. Reports sinus pressure, pain, congestion, headache for 2 weeks. Reports she has been taking Sudafed, Mucinex, ibuprofen without relief. She recently took a Z-Robert and steroid for bronchitis MD elicited complaint: nasal congestion and sinus pain Related Data Home Medications ?Medication ?Instructions ?Recorded ?Confirmed ?Last Taken ?Type albuterol sulfate 90 mcg/actuation 2 puff inhalation BID PRN sob 09/18/19 10/17/23 Unknown History aerosol inhaler (ProAir HFA) hydroxyzine HCl 25 mg tablet 25 mg PO TID 02/10/21 10/17/23 Unknown History budesonide-formoterol HFA 160 2 puff inhalation BID 07/09/23 10/17/23 Unknown History mcg-4.5 mcg/actuation aerosol inhaler (Symbicort) baclofen 10 mg tablet 10 mg PO BID PRN Spasms 09/26/23 10/17/23 Unknown History esomeprazole magnesium 40 mg mg 09/02/24 Unknown History capsule,delayed release Allergies Allergy/AdvReac Type Severity Reaction Status Date / Time levofloxacin Allergy Intermediate HIVES Verified 09/02/24 18:48 Sulfa (Sulfonamide Allergy Intermediate HIVES Verified 09/02/24 18:48 Antibiotics) Penicillins Allergy Mild Swelling Verified 09/02/24 18:48 Review of Systems Review of Systems: CONSTITUTIONAL: Denies malaise, chills, sweats, or fever. EYES: Denies visual changes, redness, or discharge. ENT: Reports rhinorrhea, congestion, sinus pain CARDIOVASCULAR: Denies chest pain, palpitations, or edema. RESPIRATORY: Reports morning cough. Denies dyspnea. GASTROINTESTINAL: Denies abdominal pain, nausea, vomiting, diarrhea SKIN: Denies rash or itching. MUSCULOSKELETAL: Denies myalgia. NEUROLOGIC: Denies headache. All systems reviewed & are unremarkable except as noted in HPI and below PMFSH Past Medical History Medical History (Updated 09/02/24 @ 19:11 by Kaia Wright NP) Cervical stenosis of spinal canal GERD (gastroesophageal reflux disease) Dental abscess Sinusitis per patient history Anxiety UTI (urinary tract infection) Asthma Surgical History Surgical History History of orthopedic surgery left shoulder Family History Family History Mother Family history non-contributory Social History Social History Smoking packs per day: 0.5 Smoking cigarettes per day: 10.0 Smoking status: Current every day smoker Tobacco type: cigarettes Alcohol intake: current Alcohol use details: Occasional Substance use: never Living arrangements: with family Gender identity (if verbalized by the patient): Female Sexual Orientation (if Verbalized by the Patient): Straight or Heterosexual Spiritual care concerns: No Comments At time of signature, agree with nursing past medical, surgical, social and family history. There is no relevant family history pertinent to the presenting complaint Exam Narrative: GENERAL: Well-appearing, well-nourished, and in no acute distress. HEAD: Normocephalic EYES: PERRLA, conjunctivae clear ENT: Nares clear, turbinates edematous and erythematous. Mucous membranes moist. TM pearly padron with dull light reflex bilaterally; no tragal tenderness. Oropharynx not erythematous without lesions. Tonsils not enlarged and without exudate, no drooling, no hoarseness, no trismus, uvula midline. NECK: Supple. No lymphadenopathy CHEST: Clear to auscultation, breath sounds equal. No wheezing, rhonchi, rales, or stridor. No respiratory distress, speaks in full sentences. HEART: Regular rate and rhythm. No murmur heard. SKIN: Warm, dry, no rash. NEURO: Alert and oriented x3. PSYCH: Normal mood and affect Course Course Emergency Course: Patient is aware of diagnosis, understands and agrees to treatment plan. Anticipatory guidance given. Patient agrees to follow-up as directed and is aware of reasons to seek care at the emergency department. Portions of this record may have been created with voice recognition software Level of Care: Express Care Visit Vital Signs Vital signs: Vital Signs Temperature 99.4 F 09/02/24 18:42 Pulse Rate 86 09/02/24 18:42 Respiratory Rate 16 09/02/24 18:42 Blood Pressure 106/76 09/02/24 18:42 Pulse Oximetry 98 09/02/24 18:42 Oxygen Delivery Room Air 09/02/24 18:42 Temperature 99.4 F 09/02/24 18:42 Pulse Rate 86 09/02/24 18:42 Respiratory Rate 16 09/02/24 18:42 Blood Pressure 106/76 09/02/24 18:42 Pulse Oximetry 98 09/02/24 18:42 Oxygen Delivery Room Air 09/02/24 18:42 Reviewed. MDM - URI/Sore Throat MDM Narrative Medical decision making narrative: Differential diagnosis considered: Lawrence virus, strep pharyngitis, allergic rhinitis, upper respiratory tract infection, sinusitis, rhinosinusitis, nasopharyngitis. viral pharyngitis, otitis media, otitis externa, pneumonia, bronchitis, viral cough syndrome, viral syndrome, and influenza. Exam findings show no acute concerns or changes; patient is non-toxic appearing and is in no distress. Patient is appropriate for outpatient treatment and follow-up. Lab Data Attestation: I reviewed the patient's lab results. Critical Care Time Critical Care Time Critical Care Time: No Discharge Plan Discharge Clinical Impression: Acute bacterial sinusitis Patient Disposition: Home, Self-Care Condition: Stable Instructions: Antibiotic Form, Sinusitis (ED) Additional Instructions: Take medications as prescribed Nonprescription pain medications, such as acetaminophen (eg, Tylenol) or ibuprofen (eg, Motrin, Advil), are recommended for pain. Flushing the nose and sinuses with a saline solution several times per day has been proven to decrease pain associated with congestion and shorten the duration of symptoms. Nasal steroids (such as Flonase, 2 sprays in each nostril daily) can help to reduce swelling inside the nose, usually within two to three days. These drugs have few side effects and relieve symptoms in most people. Oral decongestants (pseudoephedrine and phenylephrine) may be helpful if you have associated symptoms of ear pain or fullness. Nasal decongestant sprays, including oxymetazoline (Afrin) and phenylephrine (Felix-Synephrine), can be used to temporarily treat congestion. However, these sprays should not be used for more than two to three days due to the risk of rebound congestion (when the nose becomes congested constantly unless the medication is used repeatedly), possible addiction, and long-term consequences of frequent use, including persistent nasal dryness and crusting, which is very difficult to treat once it has developed. Medications to thin secretions (such as guaifenesin) may help to clear mucus. Please follow-up with your primary care doctor in the next 1-2 days. If you cannot follow-up with your primary care doctor please go to the ED for any urgent issues. If you have any worsening of symptoms or any other concerns please go to the ED immediately. Patient Language: Citizen Of [place] Prescriptions: New pseudoephedrine HCl [12 Hour Decongestant] 120 mg tablet extended release 120 mg PO Q12H PRN (Reason: nasal congestion) Qty: 12 0RF doxycycline monohydrate 100 mg tablet 100 mg PO BID 7 Days Qty: 14 0RF No Action baclofen 10 mg tablet 10 mg PO BID PRN (Reason: Spasms) albuterol sulfate [ProAir HFA] 90 mcg/actuation Hfa Aerosol Inhaler 2 puff INHALATION BID PRN (Reason: sob) hydroxyzine HCl 25 mg Tablet 25 mg PO TID budesonide-formoterol [Symbicort] 160-4.5 mcg/actuation HFA aerosol inhaler 2 puff INHALATION BID esomeprazole magnesium 40 mg capsule,delayed release(DR/EC) Follow-up/Referrals: Phong,Tino Blackburn MD [Primary Care Provider] - Time of Disposition: 19:12
--- OUTSIDE RECORDS SUMMARY | 2024-09-02 19:23 | XMS_ITS | Encounter Summary ---
Author Organization [facility] Address [address] [place] [address] Care Team Providers Care Line Runner Name Role Phone Verónica Stanley MD Primary Care Provider [phone] Encounter Details Date Type Department Care Team (Late st Contact Info) Description 09/23/2017 Abstract [facility] CONVERSION [address] [place] [address] , Generic Conversion, Social History Tobacco Use Types Packs/Day Years Used Date Smoking Tobacco: Never Assessed Comments Unknown Sex and Gender Information Value Date Recorded Sex Assigned at Not on file Legal Sex Female 10:07 PM [employer] Gender Identity Not on file Sexual Orientation Not on file documented as of this encounter Plan of Treatment Not on file documented as of this encounter Visit Diagnoses Not on filedocumented in this encounter Care Teams Line Runner Relationship Specialty Start Date End Date Verónica Stanley MD PCP - General FAMILY PRACTICE 09/26/17 documented as of this encounter
--- OUTSIDE RECORDS SUMMARY | 2024-09-02 19:23 | XMS_ITS | Referral Summary ---
Author Organization [facility] Address [address] [place] [address] Care Team Providers Care Glass Technician Name Role Phone Tino Darling MD Primary Care Provider [phone] Encounters Date Type Department Care Team Description 07/15/2024 Telephone [facility] [id number] [address] [address] Nakia Marte, SAV 07/15/2024 Telephone [facility] [address] [address]unn [address] Nakia Marte, RN 06/25/2024 8:00 AM STORE SALES MANAGER Lab [address] Hypertriglyceridemia 06/24/2024 8:45 AM STORE SALES MANAGER Office Visit [facility] Cardiology [address] [facility] [address] [place] [address] Jaciel Bustamante MD Recurrent chest pain (Primary Dx); Other chest pain; Bradycardia; Hypertriglyceridemia; Tobacco abuse counseling; Blood pressure elevated without history of HTN 06/04/2024 Telephone [facility] Gastroenterology at [address] [place] [id number] Victorino Chavez NP 06/04/2024 8:59 AM STORE SALES MANAGER - 06/04/2024 2:23 PM STORE SALES MANAGER Emergency [facility] Emergency Department [address] [place] [address] Shaun Back MD Chest pain, unspecified type (Primary Dx) Discharge Disposition: Discharge to home or self care from Last 3 Months Allergies Active Allergy Reactions Criticality Noted Date Comments Doxycycline Chest tightness Medium 08/09/2023 Chest pain that flared me up Gabapentin Other (See comments) Low 06/03/2022 Double vision Latex Rash Medium 06/03/2022 Penicillins Unknown 04/02/2019 Sulfa (Sulfonamide Antibiotics) Urticaria Medium 09/26/2017 I will swell up Zolpidem Headache Low 12/28/2021 Medications albuterol HFA (PROVENTIL HFA,VENTOLIN HFA,PROAIR HFA) 90 mcg/actuation inhaler Inhale 2 puffs every 4 (four) hours as needed Active hydrOXYzine (ATARAX) 25 mg tablet Take 1 tablet (25 mg total) by mouth nightly as needed Active levonorgestreL (Mirena) IUD 020 Active cetirizine (ZyrTEC) 10 mg tablet Take 1 tablet (10 mg total) by mouth daily Active ibuprofen (ADVIL,MOTRIN) 200 mg tab/capIndication s:Pain Take 2 tablet/capsule (400 mg total) by mouth every 6 (six) hours as needed for pain Active baclofen (LIORESAL) 10 mg tablet Take 1 tablet (10 mg total) by mouth 2 (two) times a day as needed for muscle spasms Active multivit-min/ferr ous fumarate (MULTI VITAMIN ORAL) Take by mouth Active lidocaine (LIDODERM) 5 % 023 Active buPROPion SR (ZYBAN) 150 mg 12 hr tablet Take 1 tablet (150 mg total) by mouth 2 (two) times a day 60 tablet 11 023 Active Additional Information Patient not taking.Reported on 06/24/2024 Symbicort 160-4.5 mcg/actuation inhaler 024 Active senna (SENOKOT) 8.6 mg tablet Take 1-2 tablets daily as needed for management of chronic constipation. 60 tablet 1 024 Active Additional Information Patient not taking.Reported on 06/24/2024 busPIRone (BUSPAR) 10 mg tabletIndications :Generalized Anxiety Disorder Take 1 tablet (10 mg total) by mouth 2 (two) times a day 180 tablet 3 Active Additional Information Patient not taking.Reported on 06/24/2024 lubiprostone (AMITIZA) 8 mcg capsuleIndication s:Constipation Predominant Irritable Bowel Syndrome,chronic idiopathic constipation Take 1 capsule (8 mcg total) by mouth 2 (two) times a day with meals 60 capsule 11 024 2024 Active amLODIPine (NORVASC) 2.5 mg tablet Take 1 tablet (2.5 mg total) by mouth daily 30 tablet 11 024 2024 Active sucralfate (CARAFATE) suspension 1 gram/10 mL Take 10 mls 3-4 times daily. Works best when taken 30 mins before eating and at bedtime. 1200 mL 1 Active ondansetron ODT (ZOFRAN-ODT) 4 mg disintegrating tablet Take 1 tablet (4 mg total) by mouth every 6 (six) hours as needed for nausea or vomiting 20 tablet 1 Active dexlansoprazole (DEXILANT) 60 mg capsule Take 1 capsule (60 mg total) by mouth daily 90 capsule 3 Active famotidine (PEPCID) 40 mg tablet Take 1 tablet (40 mg total) by mouth daily 90 tablet 3 [address] (NexIUM) 40 mg capsule Take 1 capsule (40 mg total) by mouth daily before breakfast 90 capsule 3 024 2024 Discontinued Active Problems Problem Noted Date Diagnosed Date Blood pressure elevated without history of HTN 1 08/25/2023 Irritable bowel syndrome wit h both constipation and diarrhea 01/15/2024 Facial flushing 08/09/2023 Slow transit constipation 05/04/2023 Abnormal endocrine laboratory test finding 05/04 BRBPR (bright red blood per rectum) 05/04/2023 Screening for colon cancer 12/22/2022 Irregular bowel habits 08/09/2022 Recurrent chest pain 12/28/2021 Functional dyspepsia 12/28/2021 Encounter for screening colonoscopy 12/28/2021 Tobacco abuse counseling 11/04/2021 History of COVID-19 11/04/2021 Hypertriglyceridemia 11/04/2021 Chronic nausea 08/16/2021 Upper abdominal pain 08/16/2021 Bradycardia 08/16/2021 Dyspepsia 01/28/2021 Epigastric pain 01/28/2021 Other chest pain 01/28/2021 Tobacco use disorder 01/28/2021 Dysphagia 01/28/2021 Gastroesophageal reflux disease 11/03/2020 Spinal stenosis in cervical region 11/03/2020 Laryngopharyngeal reflux 06/08/2020 Assessment & Plan (06/08/2020 8:08 PM STORE SALES MANAGER): Doxycycline 100 mg twice daily for 14 days Omeprazole 40 mg in the morning 30 minutes before a meal, Pepcid 40 mg at bedtime LPR discussed and Handout provided Dental infection 06/08/2020 Assessment & Plan (06/08/2020 10:31 AM STORE SALES MANAGER): Doxycycline 100 mg twice daily for 14 days Omeprazole 40 mg in the morning 30 minutes before a meal, Pepcid 40 mg at bedtime Dental and oral surgery contact provided Lung nodule 12/31/2019 Tobacco user 10/22/2019 Mild intermittent asthma 11/27/2018 Immunizations Immunization Administration Dates Next Due Influenza, Quadrivalent, Split, Intramuscular Influenza, Quadrivalent, Spl it, Preservative Free, Intramuscular 04/26/2017 Influenza, Trivalent, Preservative Free, Intramu scular 05/11/2016 MMR 10/15/2012 Tdap 05/11/2016,10/15/2012 Social History Tobacco Use Types Packs/Day Years Used Date Smoking Tobacco: Every Day Cigarettes 1.3 30 Smokeless Tobacco: Never Tobacco Cessation:Ready to Q uit: Not Asked; Counseling Given: Not Answered Alcohol Use Standard Drinks/Week Comments Yes 0 (1 standard drink = 0.6 oz pur e alcohol) AUDIT-C Answer Date Recorded Q1: How often do you have a drink containing alc ohol? Never 01/15/2024 Average Number of Drinks Not on file 024 Frequency of Binge Drinking Not on file 02/2024 Personal Safety Answer Date Recorded Have you ever been in or are you currently in a harmful physical or emotional relationship or is someone making you feel afraid or unsafe? Denies 06/04/2024 Comments No Sex and Gender Information Value Date Recorded Sex Assigned at Not on file Legal Sex Female 9:59 AM STORE SALES MANAGER Gender Identity Female 05/17/2021 11:15 AM STORE SALES MANAGER Sexual Orientation Straight 10/08/2020 8: 47 AM CDT Last Filed Vital Signs Vital Sign Reading Time Taken Comments Blood Pressure 130/88 06/24/2024 8:52 AM STORE SALES MANAGER Pulse 91 06/24/2024 8:52 AM STORE SALES MANAGER Temperature 36.3 C (97.3 F) 06/04/2024 8:54 AM STORE SALES MANAGER Respiratory Rate 17 06/04/2024 11:30 AM STORE SALES MANAGER Oxygen Saturation 98% 06/24/2024 8:52 AM STORE SALES MANAGER Inhaled Oxygen Concentration - - Weight 67.9 kg (149 lb 9.6 oz) 06/24/2024 8:52 A M STORE SALES MANAGER Height 166.4 cm (5' 5.5 ) 06/24/2024 8:52 AM STORE SALES MANAGER Body Mass Index 24.52 06/24/2024 8:52 AM STORE SALES MANAGER Plan of Treatment Not on file Procedures Procedure Name Priority Date/Time Associated Diagnosis Comments LIPID PANEL Routine 06/25/2024 7:57 AM STORE SALES MANAGER Hypertriglyceride heather POCT LIPID PANEL Routine 06/24/2024 12:3 7 PM STORE SALES MANAGER Hypertriglyceride heather TROPONIN T HIGH-SENSITIVITY 2-HOUR Timed 06/04/2024 11:59 AM STORE SALES MANAGER EGFR STAT 06/04/2024 9:45 AM STORE SALES MANAGER DIFFERENTIAL AUTO STAT 06/04/2024 9:4 5 AM STORE SALES MANAGER APTT STAT 06/04/2024 9:45 AM STORE SALES MANAGER PROTIME-INR STAT 06/04/2024 9:45 AM STORE SALES MANAGER D-DIMER, QUANTITATIVE STAT 06/04/2024 9:45 AM STORE SALES MANAGER TROPONIN T HIGH-SENSITIVITY SERIES (BASELINE, 2HR, 4HR, 6HR) STAT 06/04/2024 9:45 AM STORE SALES MANAGER PRO B-TYPE NATRIURETIC PEPTIDE STAT 06/04/2024 9:45 AM STORE SALES MANAGER CBC WITH AUTO DIFFERENTIAL STAT 06/04/2024 9:45 AM STORE SALES MANAGER COMPREHENSIVE METABOLIC PANEL STAT 06/04/2024 9:45 AM STORE SALES MANAGER URINALYSIS AND REFLEX TO MICROSCOPIC AND CULTURE STAT 06/04/2024 9:45 AM STORE SALES MANAGER XR CHEST 1 VIEW ED 06/04/2024 9:32 AM STORE SALES MANAGER ECG 12-LEAD STAT 06/04/2024 8:58 AM STORE SALES MANAGER COLONOSCOPY 05/10/2023 8:40 AM CDT SCREENING MAMMOGRAM BILATERAL W OTF Schedule Routine, Read Routine (OP Routine) 11/22/2021 10:02 AM CDT Screening mammogram, encounter for from Last 3 Months or Most Recently Relevant to Health Maintenance Results * (ABNORMAL) Lipid panel (06/25/2024 7:57 AM STORE SALES MANAGER) Cholesterol 165 30 - 199 mg/dL Comment: Interpretive Data Ages < or = 19 years Acceptable: <170 mg/dL Borderline high: 170-199 mg/dL High: >or= 200 mg/dL Ages > or = 20 years Desirable: <200 mg/dL Borderline high: 200-239 mg/dL High: >or= 240 mg/dL Literature References: 1. Expert Panel on Integrated Guidelines for Cardiovascular Health and Risk Reduction in Children and Adolescents. Pediatrics 2011;128:S213 2. NCEP Expert Panel. Circulation 2004;110:227 Current Interpretive Data was last revised on 2018. Triglycerides 105 <=149 mg/dL [facility] ORTI[facility] ([place]) Comment: Interpretive Data Ages < or = 9 years Acceptable: <75 mg/dL Borderline high: 75-99 mg/dL High: >or= 100 mg/dL Ages 10 to 20 years Acceptable: <90 mg/dL Borderline high: 90-129 mg/dL High: >or= 130 mg/dL Ages > or = 20 years Desirable: <150 mg/dL Borderline high: 150-199 mg/dL High: 200-499 mg/dL Very high: >or= 499 mg/dL Literature References: 1. Expert Panel on Integrated Guidelines for Cardiovascular Health and Risk Reduction in Children and Adolescents. Pediatrics 2011;128:S213 2. NCEP Expert Panel. Circulation 2004;110:227 Current Interpretive Data was last revised on 2018. HDL 36(L) >=40 mg/dL JOSE DAVID Orozco ([place]) Comment: Interpretive Data Ages < or = 19 years Acceptable: >45 mg/dL Borderline low: 40-45 mg/dL Low: <40 mg/dL Ages > or = 20 years Desirable: >or= 60 mg/dL Low: <40 mg/dL Literature References: 1. Expert Panel on Integrated Guidelines for Cardiovascular Health and Risk Reduction in Children and Adolescents. Pediatrics 2011;128:S213 2. NCEP Expert Panel. Circulation 2004;110:227 Current Interpretive Data was last revised on 2018. LDL, calculated 110 <=129 mg/dL [facility] ORTI[facility] ([place]) Comment: Interpretive Data Ages < or = 19 years Acceptable: <110 mg/dL Borderline high: 110-129 mg/dL High: >or= 130 mg/dL Ages > or = 20 years Optimal: <100 mg/dL Near optimal: 100-129 mg/dL Borderline high: 130-159 mg/dL High: >160 mg/dL Calculated using the Bertrand LDL-C estimating equation. This equation was implemented on 2024. Prior to this date LDL-C was estimated using the Friedewald equation. Literature References: 1. Expert Panel on Integrated Guidelines for Cardiovascular Health and Risk Reduction in Children and Adolescents. Pediatrics 2011;128:S213 2. NCEP Expert Panel. Circulation 2004;110:227 3. Bertrand Salgado al. TRUMAN Cardiol. 2020 November 07;5(5):540-548. doi: [email or web address] Current Interpretive Data was last revised on 2024. Non-HDL Cholesterol 129 mg/dL [facility] ORTI[facility] ([place]) Comment: Interpretive Data Ages < or = 19 years Acceptable: <120 mg/dL Borderline high: 120-144 mg/dL High: >145 mg/dL Ages > or = 20 years When triglycerides are >200 mg/dL, Non-HDL cholesterol is a secondary target of therapy with treatment goals that are 30 mg/dL greater than the LDL cholesterol target. Literature References: 1. Expert Panel on Integrated Guidelines for Cardiovascular Health and Risk Reduction in Children and Adolescents. Pediatrics 2011;128:S213 2. NCEP Expert Panel. Circulation 2004;110:227 Current Interpretive Data was last revised on 2018. Chol/HDL ratio 5 [facility] ([place]) Blood 06/25/2024 7:57 AM STORE SALES MANAGER 06/25/2024 10:14 AM STORE SALES MANAGER Jaciel Bustamante MD LAB BLOOD ORDERABLES Final Result JOSE DAVID ANGEL ([place]) 1 [facility] Department [place] [address] * POCT lipid panel (06/24/2024 12:37 PM STORE SALES MANAGER) Cholesterol, POC 185 mg/dL Comment:GLU = 135 HDL, POC N/A mg/dL Triglycerides, POC >650 mg/dL LDL Cholesterol POC N/A mg/dL Chol/HDL Ratio, POC N/A Non-HDL Cholesterol, POC N/A mg/dL Cholesterol Total, POC 185 mg/dL Capillary blood 06/24/2024 1 2:37 PM STORE SALES MANAGER Jaciel Bustamante MD POINT OF CARE TEST O RDERABLES Final Result * Troponin T high-sensitivity 2-hour (06/04/2024 11:59 AM STORE SALES MANAGER) Trop T hs <6 <=14 ng/L Comment: Interpretive Data For further hscTnT resources including the diagnostic algorithm and an aid in interpretation, copy and paste this link: [email or web address].testcatalog.org/show/hsTrop Current Interpretive Data last revised 2020. Trop T hs delta 0 ng/L [facility] ([place]) Trop T hs interp Insignificant [facility] ([place]) Blood 06/04/2024 11:5 9 AM STORE SALES MANAGER 06/04/2024 12:34 PM STORE SALES MANAGER Edwin Rivera MD LAB BLOOD ORDERABLES Final R esult [facility] [place] 1 [facility] [place] [address] * Troponin T high-sensitivity series (baseline, 2hr, 4hr, 6hr) (06/04/2024 9:45 AM STORE SALES MANAGER) Trop T hs <6 <=14 ng/L Comment: Interpretive Data For further hscTnT resources including the diagnostic algorithm and an aid in interpretation, copy and paste this link: https://nrl.testcatalog.org/show/hsTrop Current Interpretive Data last revised 2020. Blood 06/04/2024 9:45 AM STORE SALES MANAGER 06/04/2024 9:51 AM STORE SALES MANAGER Edwin Rivera MD LAB BLOOD ORDERABLES Final R esult JO[facility] DAV[facility] ORTI[facility] ([place]) [address] [place] [address] [place] [address] * eGFR (06/04/2024 9:45 AM STORE SALES MANAGER) eGFR >90 >=60 mL/min/1. 73 m2 Comment: Interpretive Data Reference Interval Normal >/= 90 mL/min/1.73m2 Mildly decreased* 60 - 89 mL/min/1.73m2 Mildly to moderately decreased 45 - 59 mL/min/1.73m2 Moderately to severely decreased 30 - 44 mL/min/1.73m2 Severely decreased 15 - 29 mL/min/1.73m2 Kidney Failure < 15 mL/min/1.73m2 *Relative to young adult level Estimated glomerular filtration rate is determined by the 2020 CKD-EPI equation recommended by the National Kidney Foundation (A Unifying Approach to GFR Estimation: Recommendations of the NKF-ASK Task Force on Reassessing the Inclusion of Race in Diagnosing Kidney Disease, JASN 2020). The CKD-EPI equation should not be used for patients with unstable renal function and has not been validated in children and those over 70. Current interpretive data was last reviewed 2021. Blood 06/04/2024 9:45 AM STORE SALES MANAGER 06/04/2024 9:51 AM STORE SALES MANAGER Edwin Rivera MD LAB BLOOD ORDERABLES Final R esult [facility] ([place]) 1 [facility] Department [place] [address] * (ABNORMAL) Differential, auto (06/04/2024 9:45 AM STORE SALES MANAGER) Neutrophil abs 9.6(H) 1.5 - 6.5 K/cumm Imm gran abs 0.0 0.0 - 0.1 K/cumm [facility] ([place]) Lymphocyte abs 2.3 0.8 - 3.3 K/cumm [facility] ([place]) Monocyte abs 0.9(H) 0.2 - 0.8 K/cumm [facility] ([place]) Eosinophil abs 0.1 0.0 - 0.5 K/cumm [facility] ([place]) Basophil abs 0.0 0.0 - 0.1 K/cumm [facility] ([place]) Neutrophil pct 74.3 % [facility] ([place]) Comment: Interpretive Data Percent cell count reference ranges are not reported, since discordance with absolute values may lead to misinterpretation of CBC data. Current Interpretive Data was last revised on 2017. Imm gran pct 0.3 % [facility] ([place]) Comment: Interpretive Data Percent cell count reference ranges are not reported, since discordance with absolute values may lead to misinterpretation of CBC data. Current Interpretive Data was last revised on 2017. Lymphocyte pct 17.6 % [facility] ([place]) Comment: Interpretive Data Percent cell count reference ranges are not reported, since discordance with absolute values may lead to misinterpretation of CBC data. Current Interpretive Data was last revised on 2017. Monocyte pct 7.0 % [facility] ([place]) Comment: Interpretive Data Percent cell count reference ranges are not reported, since discordance with absolute values may lead to misinterpretation of CBC data. Current Interpretive Data was last revised on 2017. Eosinophil pct 0.5 % [facility] ([place]) Comment: Interpretive Data Percent cell count reference ranges are not reported, since discordance with absolute values may lead to misinterpretation of CBC data. Current Interpretive Data was last revised on 2017. Basophil pct 0.3 % [facility] ([place]) Comment: Interpretive Data Percent cell count reference ranges are not reported, since discordance with absolute values may lead to misinterpretation of CBC data. Current Interpretive Data was last revised on 2017. Blood 06/04/2024 9:45 AM STORE SALES MANAGER 06/04/2024 9:51 AM STORE SALES MANAGER us Edwin Rivera MD LAB BLOOD ORDERABLES Final R esult JOSE DAVID [facility] ([place]) 1 [facility] Department [place] [address] * Pro B-type natriuretic peptide (06/04/2024 9:45 AM STORE SALES MANAGER) NT-proBNP <36 <=300 pg/mL Comment: Interpretive Comments: A. Dyspnea in Acute Care Setting All Ages: < 300 pg/ml, acute heart failure unlikely. < 50 yrs: 300 - 450 pg/ml, further investigation warranted. > 450 pg/ml, acute heart failure likely. 50 - 74 yrs: 300 - 900 pg/ml, further investigation warranted. > 900 pg/ml, acute heart failure likely . > or = 75 yrs: 450 - 1800 pg/ml, further investigation warranted. > 1800 pg/ml, acute heart failure likely. B. Non-acute Setting < 75 yrs < 125 pg/ml, rules out heart failure. > or = 125 pg/ml, further investigation warranted. > or = 75 yrs < 450 pg/ml, rules out heart failure. > or = 450 pg/ml, further investigation warranted. - Knowledge of each individual patient's NT-proBNP range may be more useful than using similar cut-points for every patient. Please note that marked elevations in NT-proBNP levels may be observed in state other than Left Ventricular Congestive Failure, including: acute coronary syndromes, right heart strain/failure (including pulmonary embolism and cor pulmonale), critical illness, renal failure, as well as advanced age. - References: 1. Obi AGUDELO et.al. Eur Heart J. 2006:27:330-337. 2. Guido RW, Scooby AM. J. AM Herminia Cardiol: Cardiovasc Imag. 2009;2: 216- 225. Interpretive Data Last Revised Date: 2018. Blood 06/04/2024 9:45 AM STORE SALES MANAGER 06/04/2024 9:51 AM STORE SALES MANAGER Edwin Rivera MD LAB BLOOD ORDERABLES Final R esult JOSE DAVID [facility] ([place]) 1 [facility] Department of Laboratories [place] [id number] * Urinalysis reflex to microscopic and culture Urine (06/04/2024 9:45 AM STORE SALES MANAGER) Color, ur Straw Yellow Clarity, ur Clear Clear [facility] ([place]) Specific gravity, ur 1.004 1.003 - 1.030 [facility] ([place]) pH, urine 7.0 [facility] ([place]) Comment: Interpretive Data U rine pH is affected by diet, medications, systemic acid-base disturbances, and renal tubular function. pH may affect urinary stone formation. For example, urine pH below 6.0 may help reduce the tendency for calcium phosphate stones and pH greater than 6.0 may reduce the tendency for uric acid stone formation. Source: [facility] [place] Current Interpretive Data was last revised on 2017 Protein, ur ql Negative Negative [facility] ([place]) Glucose, ur ql Negative Negative [facility] ([place]) Ketones, ur Negative Negative [facility] ([place]) Bilirubin, ur Negative Negative [facility] ([place]) Blood, ur Negative Negative [facility] ([place]) Urobilinogen, ur <2.0 <2.0 mg/dL [facility] ([place]) Nitrite, ur Negative Negative [facility] ([place]) Leukocyte esterase, ur Negative Negative [facility] ([place]) UA reflex comment Reflex conditions for microscopic UA and culture not met. [facility] Urine 06/04/2024 9:45 AM STORE SALES MANAGER 06/04/2024 9:51 AM STORE SALES MANAGER Edwin Rivera MD LAB MICROBIOLOGY - GENERAL O RDERABLES Final Result Performing Organization Address City/[facility]/ZIP Co de Phone Number JOSE DAVID [facility] ([place]) 1 [facility] Department [place] [address] * (ABNORMAL) CBC with auto differential (06/04/2024 9:45 AM STORE SALES MANAGER) WBC 12.9(H) 3.8 - 9.9 K/cumm Hgb 14.4 11.9 - 15.5 g/dL [facility] ([place] Hct 42.3 35.6 - 45.5 % [facility] ([place]) Plt 248 150 - 400 K/cumm [facility] ([place]) MPV 10.2 9.1 - 12.3 fL [facility] RBC 4.69 3.90 - 5.20 M/cumm [facility] ([place]) MCV 90.2 81.3 - 96.4 fL [facility] ([place]) MCH 30.7 27.1 - 33.3 pg [facility] ([place] MCHC 34.0 32.3 - 35.7 g/dL [facility] ([place]) RDW CV 11.9 11.1 - 14.9 % [facility] ([place]) RDW SD 38.7 35.7 - 48.1 fL [facility] NRBC abs 0.00 0.00 - 0.01 K/cumm [facility] ([place] Blood 06/04/2024 9:45 AM STORE SALES MANAGER 06/04/2024 9:51 AM STORE SALES MANAGER Edwin Rivera MD LAB BLOOD ORDERABLES Final R esult [facility] ([place]) [address] [facility] [place] [address] * aPTT (06/04/2024 9:45 AM STORE SALES MANAGER) aPTT 36 28 - 38 sec [facility] ORTI[facility] ([place]) Comment: Interpretive Data Heparin therapeutic range: 66.0 - 100.0 seconds. Range based on correlation with therapeutic heparin activity range of 0.3 - 0.7 Units/mL. Current interpretive data was last revised on 2023. Blood 06/04/2024 9:45 AM STORE SALES MANAGER 06/04/2024 9:51 AM STORE SALES MANAGER Edwin Rivera MD LAB BLOOD ORDERABLES Final R ult Performing Organization Address [facility] de Phone Number JOSE DAVID ORTIZ ([place]) [address] [place] [address] * Protime-INR (06/04/2024 9:45 AM STORE SALES MANAGER) Pathologist [facility] PT 11.0 9.7 - 13.0 sec JOSE DAVID [facility] ([place]) INR 1.02 0.90 - 1.20 JOSE DAVID [facility] ([place]) Comment: Interpretive data Oral anticoagulant therapeutic ranges: Venous thromboembolism prophylaxis or treatment: 2.0-3.0 CARDIOLOGY Standard range: 2.0-3.0 High-intensity range: 2.5-3.5 Refer to indication-specific guidelines for appropriate target ranges for prosthetic heart valve replacement. Current interpretive data was last revised on 2019. Blood 06/04/2024 9:45 AM STORE SALES MANAGER 06/04/2024 9:51 AM STORE SALES MANAGER Edwin Rivera MD LAB BLOOD ORDERABLES Final R esult Performing Organization Address City/[facility] Co de Phone Number JOSE DAVID ORTIZ ([place]) [address] [place] [address] * D-dimer, quantitative (06/04/2024 9:45 AM STORE SALES MANAGER) D-Dimer <215 <=499 ng/mL FEU [facility] ([place]) Comment: Interpretive data FDA approved the D-dimer, in conjunction with a low or moderate pretest probability score, to exclude venous thromboembolic events (VTE) (PE and DVT) in outpatients when the D-dimer result is < 500 ng/ml FEU. Evidence supports using an age-adjusted D-dimer cut-off for outpatients older than 50 (age x 10) to improve specificity without sacrificing sensitivity. Example: age 68, VTE cut-off 680 ng/ml FEU. References; Maribel HT et al. Brit Med J. 2013;346:f2492. Tanya et al. Annals Int Med. 2015;163:701-11. Current interpretive data was last revised on 2019. Blood 06/04/2024 9:45 AM STORE SALES MANAGER 06/04/2024 9:51 AM STORE SALES MANAGER Edwin Rivera MD LAB BLOOD ORDERABLES Final R esult [facility] [facility] 1 [facility] [place] [address] * Comprehensive metabolic panel (06/04/2024 9:45 AM STORE SALES MANAGER) Pathologist [facility] Sodium 141 135 - 145 mmol/L Potassium, pl 4.2 3.3 - 4.9 mmol/L [facility] Chloride 105 97 - 110 mmol/L [facility]) CO2 26 22 - 32 mmol/L [facility] Anion gap 10 2 - 15 mmol/L [facility] BUN 9 6 - 25 mg/dL [facility] Creatinine 0.78 0.60 - 1.10 mg/dL [facility] Glucose 106 70 - 199 mg/dL [facility] Comment: Interpretive Data Fasting glucose >/= 126 mg/dl is diagnostic for diabetes. Fasting is defined as no caloric intake for at least 8 hours. Fasting glucose between 100 mg/dl to 125 mg/dl is diagnostic of prediabetes. In a patient with classic symptoms of hyperglycemia or hyperglycemic crisis, a random glucose >/= 200 mg/dl is diagnostic for diabetes. In the absence of unequivocal hyperglycemia, results should be confirmed by repeat testing. The classification and Diagnosis of Diabetes Diabetes Care 2021; 46: S19-S40. Current interpretive data was last revised 2022. Calcium 9.1 8.5 - 10.3 mg/dL [facility] Bilirubin, total 0.3 0.1 - 1.2 mg/dL [facility] Protein, pl 7.7 6.5 - 8.5 g/dL [facility] Albumin 4.9 3.5 - 5.0 g/dL [facility] Alk phos 93 40 - 130 Units/L [facility] ALT 14 7 - 45 Units/L [facility] AST 17 10 - 45 Units/L [facility] Blood 06/04/2024 9:45 AM STORE SALES MANAGER 06/04/2024 9:51 AM STORE SALES MANAGER Edwin Rivera MD LAB BLOOD ORDERABLES Final R esult [facility] [place] [address] * XR Chest 1 Vw Portable (06/04/2024 9:32 AM STORE SALES MANAGER) Anatomical Region Laterality Modality Body, Chest N/A Computed Radiogr aphy 06/04/2024 9:42 AM STORE SALES MANAGER Narrative 06/04/2024 9:42 AM STORE SALES MANAGER EXAM DESCRIPTION: XR CHEST 1 VIEW REASON FOR STUDY: pain Pt ambulatory to triage with c/o crushing chest pain since 0300. Pt states it is more difficult to breathe and her neck hurts. Hx GERD Per pt, hx of asthma No chest surgeries Smoker TECHNIQUE: Frontal and lateral radiographic view(s) of the chest. COMPARISON: 08/07/2022. FINDINGS: LUNGS: No focal opacity, pleural effusion, or pneumothorax. HEART/MEDIASTINUM: Cardiac silhouette normal in size. Mediastinal and hilar contours appear normal. LINES/TUBES: None. BONES: No acute osseous abnormality. IMPRESSION: No acute cardiopulmonary abnormality. THIS IS AN ELECTRONICALLY VERIFIED FINAL REPORT 06/04/2024 9:42 AM - Electronically signed by Jairo Thomas M.D. CH: YARED Report ID: [id number] Reading Location: [place] [address] Procedure Note Jairo Thomas Jr., MD - 06/04/2024 EXAM DESCRIPTION: XR CHEST 1 VIEW REASON FOR STUDY: pain Pt ambulatory to triage with c/o crushing chest pain since 299. Pt statesit is more difficult to breathe and her neck hurts. Hx GERD Per pt, hx of asthma No chest surgeries Smoker TECHNIQUE: Frontal and lateral radiographic view(s) of the chest. COMPARISON: 08/07/2022. FINDINGS: LUNGS: No focal opacity, pleural effusion, or pneumothorax. HEART/MEDIASTINUM: Cardiac silhouette normal in size. Mediastinal andhilar contours appear normal. LINES/TUBES: None. BONES: No acute osseous abnormality. IMPRESSION: No acute cardiopulmonary abnormality. THIS IS AN ELECTRONICALLY VERIFIED FINAL REPORT 06/04/2024 9:42 AM - Electronically signed by Jairo Thomas M.D. CH: YARED Report ID: [id number] Reading Location: [place] [address] Edwin Rivera MD IMG XR PROCEDURES Final Resu lt * ECG 12 lead (06/04/2024 8:58 AM STORE SALES MANAGER) 06/04/2024 8:58 AM STORE SALES MANAGER [facility] - 06/04/2024 9:39 AM STORE SALES MANAGER Vent Rate: 100 bpm RR Interval: 597 msec VA Interval: 132 msec QRS Duration: 76 msec QT Interval: 339 msec QTC Interval: 396 msec P-R-T Reading: 79 - 67 - 64 degrees IMPRESSION: SINUS TACHYCARDIA NONSPECIFIC T-WAVE ABNORMALITY ABNORMAL RHYTHM ECG Compared to prior EKG, heart rate has increased Electronically Signed By: Edinson Colindres MD Edwin Rivera MD ECG ORDERABLES Final Result [facility] * COLONOSCOPY (05/10/2023 8:40 AM CDT) Anatomical Region Laterality Modality Other Narrative Procedure Note Mary Ann Blake MD - 05/10/2023 8:40 AM CDT [facility] Patient Name: Karena Ramey Procedure Date: 05/10/2023 8:40 AM Date of : 1975 Admit Type: Outpatient Age: 48 Gender: Female Attending MD: Mary Ann Blake M.D. Room: [facility] ROOM 1 Note Status: Finalized Patient Profile: This is a 48 year old female. No family history of colon cancer. Procedure: Colonoscopy Indications: Screening for colorectal malignant neoplasm, Thisis the patient's first colonoscopy Referring MD: Tino Darling M.D. Providers: Mary Ann Blake M.D. Impression: - Overall unremarkable colon. - Two 2 to 3 mm polyps in the proximal rectum,removed with a jumbo cold forceps. Resected andretrieved. - Internal hemorrhoids. Recommendation: - Await pathology results. - Repeat colonoscopy in 8 years for surveillance. Medicines: Monitored Anesthesia Care Complications: No immediate complications. Estimated Blood Loss: Estimated blood loss: none. Procedure: Pre-Anesthesia Assessment: - Prior to the procedure, a History and Physicalwas performed, and patient medications and allergieswere reviewed. The patient's tolerance of previous anesthesia was also reviewed. The risks andbenefits of the procedure and the sedation options and risks were discussed with the patient. All questions were answered, and informed consent was obtained. Prior Anticoagulants: The patient has taken noanticoagulant or antiplatelet agents. ASA Grade Assessment: II -A patient with mild systemic disease. After reviewing the risks and benefits, the patient was deemed in satisfactory condition to undergo the procedure. The benefits, risks and alternatives of theprocedure and sedation were discussed and informed consentwas obtained. All questions were answered. Please referto the signed informed consent document in the medical record. The bowel preparation used was Miralax via split dose instruction. The bowel preparation usedwas bisacodyl tablets via split dose instruction. The scope was passed under direct vision. The Pediatric Colonoscope PCF-H190L [id number] was introducedthrough the anus and advanced to the the cecum, identifiedby appendiceal orifice and ileocecal valve. Thequality of the bowel preparation was good. Bowel prep was administered using a split dose. Findings: The perianal and digital rectal examinations were normal. The sigmoid colon, descending colon, transverse colon, ascendingcolon and cecum appeared normal. Two hyperplastic polyps were found in the proximal rectum. The polyps were 2 to 3 mm in size. These polyps were removed with a jumbo cold forceps. Resection and retrieval were complete. Internal hemorrhoids were found during retroflexion. The hemorrhoids were small. Electronically signed by Mary Ann Blake M.D. Mary Ann Blake M.D. 05/10/2023 10:19:03 AM Number of Addenda: 0 Note Initiated On: 05/10/2023 8:40 AM Procedure Code(s): --- Professional --- 61312, Colonoscopy, flexible; with biopsy, single or multiple Diagnosis Code(s): --- Professional --- Z12.11, Encounter for screening for malignant neoplasm of colon K64.8, Other hemorrhoids D12.8, Benign neoplasm of rectum CPT copyright 2020 [employer]. All rights reserved. The codes documented in this report are preliminary and upon assembler watch train reviewmay be revised to meet current compliance requirements. Recognized by the [employer] for promoting quality in endoscopy Mary Ann Blake MD ENDOSCOPY PROCEDURES Final Result * (ABNORMAL) Screening Mammogram Bilateral W Otf (11/22/2021 10:02 AM CDT) Anatomical Region Laterality Modality Breast Bilateral Mammography 12/03/2021 7:15 AM CDT Impressions 12/03/2021 7:15 AM CDT Bilateral breast asymmetries. Recommend diagnostic bilateral mammogram with possible ultrasound. BI-RADS: 0 - Additional imaging evaluation is necessary. The patient has been or will be contacted. Electronically signed by: Stephan Montgomery M.D. Narrative 12/03/2021 7:15 AM CDT EXAMINATION: SCREENING MAMMOGRAM BILATERAL W OTF ORDERING HEALTHCARE PROVIDER: SELF SCREENING MAMMOGRAM HISTORY: Routine screening mammography. COMPARISON: 10/02/2018 TECHNIQUE: CC and MLO views of the bilateral breasts were obtained with digital technique using breast tomosynthesis with C view. Computer aided detection was utilized. FINDINGS: DENSITY: There are scattered fibroglandular elements in the bilateral breasts. BREASTS: There is a CC view asymmetry in the slightly inner right breast at mid to posterior depth. There is an MLO view asymmetry in the upper left breast at middle depth. There are no suspicious calcifications in either breast. Self Screening Mammogram IMG MAMMO PROCEDURES Fi nal Result from Last 3 Months or Most Recently Relevant to Health Maintenance Insurance [facility] Advance Directives For more information, please contact: [phone] * Full Code (Latest Code Status on File) Date Activated Date Inactivated Comments 05/10/2023 8:38 AM 05/10/2023 2:54 PM * Full Code Date Activated Date Inactivated Comments 05/10/2023 8:38 AM 05/10/2023 8:38 AM * Full Code Date Activated Date Inactivated Comments 05/20/2021 9:03 AM 05/20/2021 3:06 PM * Full Code Date Activated Date Inactivated Comments 05/20/2021 9:03 AM 05/20/2021 9:03 AM Care Teams Glass Technician Relationship Specialty Start Date End Date Tino Darling MD [address] [place] [address] PCP - General Family Medicine 05/18/22
--- OUTSIDE RECORDS SUMMARY | 2024-09-02 19:23 | XMS_ITS | Clinical Summary ---
Author Organization [facility] Address [address] [place] [address] Care Team Providers Care Stitcher Hand Name Role Phone Tino Darling MD Primary Care Provider [phone] Allergies Active Allergy Reactions Criticality Noted Date [...] by mouth Active lidocaine (LIDODERM) 5 % Active buPROPion SR (ZYBAN) 150 mg 12 hr tablet Take 1 tablet (150 mg total) by mouth 2 (two) times a day 60 tablet 11 Active Additional Information Patient not taking.Reported on 06/24/2024 Symbicort 160-4.5 mcg/actuation inhaler Active senna (SENOKOT) 8.6 mg tablet Take 1-2 tablets daily as needed for management of chronic constipation. 60 tablet 1 Active Additional Information Patient not taking.Reported on [...] total) by mouth daily 90 capsule 3 025 Active famotidine (PEPCID) 40 mg tablet Take [...] 06/08/2020 Assessment & Plan (06/08/2020 8:08 PM TRAINING DEVELOPMENT DIRECTOR): Doxycycline 100 mg twice daily for 14 days Omeprazole 40 mg in the morning 30 minutes before a meal, Pepcid 40 mg at bedtime LPR discussed and Handout provided Dental infection 06/08/2020 Assessment & Plan (06/08/2020 10:31 AM TRAINING DEVELOPMENT DIRECTOR): Doxycycline 100 mg twice daily for 14 days Omeprazole 40 mg in the morning 30 minutes before a meal, Pepcid 40 mg at bedtime Dental and oral surgery contact provided Lung nodule 12/31/2019 Tobacco user 10/22/2019 Mild intermittent asthma 11/27/2018 Encounters Date Type Department Care Team Description 07/15/2024 Telephone [facility] [address] RADHA Bunn [address]842 Nakia Marte RN 07/15/2024 Telephone [facility] [address] RADHA Bunn [address] Nakia Marte RN 06/25/2024 8:00 AM TRAINING DEVELOPMENT DIRECTOR Lab [facility] [address] [place], [place] Hypertriglyceridemia 06/24/2024 8:45 AM TRAINING DEVELOPMENT DIRECTOR Office Visit [facility] Cardiology [address] [place] [address] Jaciel Bustamante MD Recurrent chest pain (Primary Dx); Other chest pain; Bradycardia; Hypertriglyceridemia; Tobacco abuse counseling; Blood pressure elevated without history of HTN 06/04/2024 8:59 AM TRAINING DEVELOPMENT DIRECTOR - 06/04/2024 2:23 PM TRAINING DEVELOPMENT DIRECTOR Emergency [facility] Emergency Department [address] [place] [address] Shaun Back MD Chest pain, unspecified type (Primary Dx) Discharge Disposition: Discharge to home or self care 06/04/2024 Telephone [facility] Gastroenterology at [address] [place] [address] Victorino Chavez NP from Last 3 Months Immunizations Immunization Administration Dates Next Due Influenza, Quadrivalent, Split, Intramuscular Influenza, Quadrivalent, Spl it, Preservative Free, Intramuscular 04/26/2017 Influenza, Trivalent, Preservative Free, Intramu scular 05/11/2016 MMR 10/15/2012 Tdap 05/11/2016,10/15/2012 Surgical History Surgery Date Site/Laterality Comments SHOULDER SURGERY COLONOSCOPY 05/10/2023 Medical History Medical History Date Comments Asthma Anxiety GERD (gastroesophageal reflux disease) Dysphagia Anxiety Family History Medical History Relation Name Comments Blood Clot Father No Contact SOB Mother Relation Name Status Comments Father No Contact Alive Mother Alive Social History Tobacco Use Types Packs/Day Years [...] on file Legal Sex Female 9:59 AM TRAINING DEVELOPMENT DIRECTOR Gender Identity Female 05/17/2021 11:15 AM TRAINING DEVELOPMENT DIRECTOR Sexual Orientation Straight 10/08/2020 8: 47 AM CDT Obstetrics History Para Term AB IAB SAB Ectopic Multiple Livin g Live Births 5 5 5 Date Outcome GA Total Labor Labor/2nd/3rd Weight Sex Type Anes PTL Minerva A1 A5 Name Clin Term Term Term Term Term Last Filed Vital Signs Vital Sign Reading Time Taken Comments Blood Pressure 130/88 06/24/2024 8:52 AM TRAINING DEVELOPMENT DIRECTOR Pulse 91 06/24/2024 8:52 AM TRAINING DEVELOPMENT DIRECTOR Temperature 36.3 C (97.3 F) 06/04/2024 8:54 AM TRAINING DEVELOPMENT DIRECTOR Respiratory Rate 17 06/04/2024 11:30 AM TRAINING DEVELOPMENT DIRECTOR Oxygen Saturation 98% 06/24/2024 8:52 AM TRAINING DEVELOPMENT DIRECTOR Inhaled Oxygen Concentration - - Weight 67.9 kg (149 lb 9.6 oz) 06/24/2024 8:52 A M TRAINING DEVELOPMENT DIRECTOR Height 166.4 cm (5' 5.5 ) 06/24/2024 8:52 AM TRAINING DEVELOPMENT DIRECTOR Body Mass Index 24.52 06/24/2024 8:52 AM TRAINING DEVELOPMENT DIRECTOR Plan of Treatment Health Maintenance Due Date Last Done Comments Cervical Cancer Screening 1975 Depression Screening 1975 Hepatitis C Screening 1975 Hepatitis B Screening 1993 Regular Well Visit/Exam 18-64 1993 Pneumococcal vaccine <65 (1 of 2 - PCV) 1994 Influenza Vaccine (#1) 2024 8, 04/26/2017, 05/11/2016 Breast Cancer Screening-Mammogram 04/10/2025 04/10/2024, 04/10/2024, 02/24/2023, Additional history exists DTaP/Tdap/Td Vaccine (3 - Td or Tdap) 05/11/2026 05/11/2016, 10/15/2012 Colon Cancer Screening-Colonoscopy 05/10/20332022 Procedures Procedure Name Priority Date/Time Associated Diagnosis Comments LIPID PANEL Routine 06/25/2024 7:57 AM TRAINING DEVELOPMENT DIRECTOR Hypertriglyceride heather POCT LIPID PANEL Routine 06/24/2024 12:3 7 PM TRAINING DEVELOPMENT DIRECTOR Hypertriglyceride heather TROPONIN T HIGH-SENSITIVITY 2-HOUR Timed 06/04/2024 11:59 AM TRAINING DEVELOPMENT DIRECTOR EGFR STAT 06/04/2024 9:45 AM TRAINING DEVELOPMENT DIRECTOR DIFFERENTIAL AUTO STAT 06/04/2024 9:4 5 AM TRAINING DEVELOPMENT DIRECTOR APTT STAT 06/04/2024 9:45 AM TRAINING DEVELOPMENT DIRECTOR PROTIME-INR STAT 06/04/2024 9:45 AM TRAINING DEVELOPMENT DIRECTOR D-DIMER, QUANTITATIVE STAT 06/04/2024 9:45 AM TRAINING DEVELOPMENT DIRECTOR TROPONIN T HIGH-SENSITIVITY SERIES (BASELINE, 2HR, 4HR, 6HR) STAT 06/04/2024 9:45 AM TRAINING DEVELOPMENT DIRECTOR PRO B-TYPE NATRIURETIC PEPTIDE STAT 06/04/2024 9:45 AM TRAINING DEVELOPMENT DIRECTOR CBC WITH AUTO DIFFERENTIAL STAT 06/04/2024 9:45 AM TRAINING DEVELOPMENT DIRECTOR COMPREHENSIVE METABOLIC PANEL STAT 06/04/2024 9:45 AM TRAINING DEVELOPMENT DIRECTOR URINALYSIS AND REFLEX TO MICROSCOPIC AND CULTURE STAT 06/04/2024 9:45 AM TRAINING DEVELOPMENT DIRECTOR XR CHEST 1 VIEW ED 06/04/2024 9:32 AM TRAINING DEVELOPMENT DIRECTOR ECG 12-LEAD STAT 06/04/2024 8:58 AM TRAINING DEVELOPMENT DIRECTOR COLONOSCOPY 05/10/2023 8:40 AM CDT SCREENING MAMMOGRAM BILATERAL W OTF Schedule Routine, Read Routine (OP Routine) 11/22/2021 10:02 AM CDT Screening mammogram, encounter for from Last 3 Months or Most Recently Relevant to Health Maintenance Results * (ABNORMAL) Lipid panel (06/25/2024 7:57 AM TRAINING DEVELOPMENT DIRECTOR) Cholesterol 165 30 - 199 mg/dL Comment: [...] revised on 2018. Triglycerides 105 <=149 mg/dL [facility] ([place]) Comment: Interpretive Data Ages < or [...] revised on 2018. HDL 36(L) >=40 mg/dL [facility] ([place]) Comment: Interpretive Data Ages < or [...] NCEP Expert Panel. Circulation 2004;110:227 3. Bertrand Lawrence et al. TRUMAN Cardiol. 2019November 07;5(5):540-548. doi: 10.1001/jamacardio.2020.0013 Current Interpretive Data was [...] last revised on 2018. Chol/HDL ratio 5 [facility] ([place]) Blood 06/25/2024 7:57 AM TRAINING DEVELOPMENT DIRECTOR 06/25/2024 10:14 AM TRAINING DEVELOPMENT DIRECTOR us Jaciel Bustamante MD LAB BLOOD ORDERABLES Final Result [facility] ([place]) 1 [facility] Department [place] [address] * POCT lipid panel (06/24/2024 12:37 PM TRAINING DEVELOPMENT DIRECTOR) Cholesterol, POC 185 mg/dL Comment:GLU = 135 HDL, POC N/A mg/dL Triglycerides, POC >650 mg/dL LDL Cholesterol POC N/A mg/dL Chol/HDL Ratio, POC N/A Non-HDL Cholesterol, POC N/A mg/dL Cholesterol Total, POC 185 mg/dL Capillary blood 06/24/2024 1 2:37 PM TRAINING DEVELOPMENT DIRECTOR us Jaciel Bustamante MD POINT OF CARE TEST O RDERABLES Final Result * Troponin T high-sensitivity 2-hour (06/04/2024 11:59 AM TRAINING DEVELOPMENT DIRECTOR) Pathologist [facility] Trop T hs <6 <=14 ng/L Comment: Interpretive Data For further hscTnT resources including the diagnostic algorithm and an aid in interpretation, copy and paste this link: https://nrl.Cyan.org/show/hsTrop Current Interpretive Data last revised 2020. Trop T hs delta 0 ng/L [facility] ([place]) Trop T hs interp Insignificant [facility] ([place]) Blood 06/04/2024 11:5 9 AM TRAINING DEVELOPMENT DIRECTOR 06/04/2024 12:34 PM TRAINING DEVELOPMENT DIRECTOR us Edwin Rivera MD LAB BLOOD ORDERABLES Final R esult [facility] ([place]) 1 [facility] Department [place] [address] * Troponin T high-sensitivity series (baseline, 2hr, 4hr, 6hr) (06/04/2024 9:45 AM TRAINING DEVELOPMENT DIRECTOR) Trop T hs <6 <=14 ng/L Comment: Interpretive Data For further hscTnT resources including the diagnostic algorithm and an aid in interpretation, copy and paste this link: https://nrl.[facility].org/show/hsTrop Current Interpretive Data last revised 2020. Blood 06/04/2024 9:45 AM TRAINING DEVELOPMENT DIRECTOR 06/04/2024 9:51 AM TRAINING DEVELOPMENT DIRECTOR Edwin Rivera MD LAB BLOOD ORDERABLES Final R esult [facility] ([place]) 1 [facility] [place] [address] * eGFR (06/04/2024 9:45 AM TRAINING DEVELOPMENT DIRECTOR) eGFR >90 >=60 mL/min/1. 73 m2 Comment: [...] last reviewed 2021. Blood 06/04/2024 9:45 AM TRAINING DEVELOPMENT DIRECTOR 06/04/2024 9:51 AM TRAINING DEVELOPMENT DIRECTOR Edwin Rivera MD LAB BLOOD ORDERABLES Final R esult [facility] ([place]) 1 [facility] [place] [address] * (ABNORMAL) Differential, auto (06/04/2024 9:45 AM TRAINING DEVELOPMENT DIRECTOR) Neutrophil abs 9.6(H) 1.5 - 6.5 K/cumm [...] 2017. Monocyte pct 7.0 % [facility] ([place]) Comment: Interpretive Data [...] revised on 2017. Basophil pct 0.3 % [facility] ([place]) Comment: Interpretive Data Percent cell count reference ranges are not reported, since discordance with absolute values may lead to misinterpretation of CBC data. Current Interpretive Data was last revised on 2017. Blood 06/04/2024 9:45 AM TRAINING DEVELOPMENT DIRECTOR 06/04/2024 9:51 AM TRAINING DEVELOPMENT DIRECTOR Edwin Rivera MD LAB BLOOD ORDERABLES Final R esult Performing Organization Address City/[facility] Co de Phone Number [facility] [place]) 1 [facility] [place] [address] * Pro B-type natriuretic peptide (06/04/2024 9:45 AM TRAINING DEVELOPMENT DIRECTOR) NT-proBNP <36 <=300 pg/mL Comment: Interpretive Comments: [...] Heart J. 2006:27:330-337. 2. Guido RW, Scooby MACEDO. J. AM [place] Cardiol: Cardiovasc Imag. 2009;2: 216- 225. Interpretive Data Last Revised Date: 2018. Blood 06/04/2024 9:45 AM TRAINING DEVELOPMENT DIRECTOR 06/04/2024 9:51 AM TRAINING DEVELOPMENT DIRECTOR Edwin Rivera MD LAB BLOOD ORDERABLES Final R esult Performing Organization Address [facility] Co de Phone Number [facility] ([place]) 1 [facility] Department [place] [address] * Urinalysis reflex to microscopic and culture Urine (06/04/2024 9:45 AM TRAINING DEVELOPMENT DIRECTOR) Color, ur Straw Yellow Clarity, ur Clear Clear [facility] ([place]) Specific gravity, ur 1.004 1.003 - [...] tendency for uric acid stone formation. Source: [facility] Current Interpretive Data was last revised on [...] ([place]) Leukocyte esterase, ur Negative Negative [facility] ([place]) UA reflex comment Reflex conditions for microscopic UA and culture not met. [facility] ([place]) Urine 06/04/2024 9:45 AM TRAINING DEVELOPMENT DIRECTOR 06/04/2024 9:51 AM TRAINING DEVELOPMENT DIRECTOR us Edwin Rivera MD LAB MICROBIOLOGY - GENERAL O RDERABLES Final Result [facility] ([place]) 1 [facility] Department [place] [address] * (ABNORMAL) CBC with auto differential (06/04/2024 9:45 AM TRAINING DEVELOPMENT DIRECTOR) WBC 12.9(H) 3.8 - 9.9 K/cumm Hgb 14.4 11.9 - 15.5 g/dL [facility] ([place]) Hct 42.3 35.6 - 45.5 % [facility] ([place]) Plt 248 150 - 400 K/cumm [facility] ([place]) MPV 10.2 9.1 - 12.3 fL [facility] ([place]) RBC 4.69 3.90 - 5.20 M/cumm [facility] ([place]) MCV 90.2 81.3 - 96.4 fL [facility] ([place]) MCH 30.7 27.1 - 33.3 pg [facility] ([place]) MCHC 34.0 32.3 - 35.7 g/dL [facility] ([place]) RDW CV 11.9 11.1 - 14.9 % [facility] ([place]) RDW SD 38.7 35.7 - 48.1 fL [facility] ([place]) NRBC abs 0.00 0.00 - 0.01 K/cumm [facility] ([place]) Blood 06/04/2024 9:45 AM TRAINING DEVELOPMENT DIRECTOR 06/04/2024 9:51 AM TRAINING DEVELOPMENT DIRECTOR Edwin Rivera MD LAB BLOOD ORDERABLES Final R esult [facility] ([place]) 1 [facility] [place] [address] * aPTT (06/04/2024 9:45 AM TRAINING DEVELOPMENT DIRECTOR) aPTT 36 28 - 38 sec [facility] ([place]) Comment: Interpretive Data Heparin therapeutic range: 66.0 - 100.0 seconds. Range based on correlation with therapeutic heparin activity range of 0.3 - 0.7 Units/mL. Current interpretive data was last revised on 2023. Blood 06/04/2024 9:45 AM TRAINING DEVELOPMENT DIRECTOR 06/04/2024 9:51 AM TRAINING DEVELOPMENT DIRECTOR Edwin Rivera MD LAB BLOOD ORDERABLES Final R esult [facility] ([place]) 1 [facility] [employer] [place] [address] * Protime-INR (06/04/2024 9:45 AM TRAINING DEVELOPMENT DIRECTOR) PT 11.0 9.7 - 13.0 sec [facility] ([place]) INR 1.02 0.90 - 1.20 [facility] ([place]) Comment: Interpretive data Oral anticoagulant therapeutic ranges: Venous thromboembolism prophylaxis or treatment: 2.0-3.0 CARDIOLOGY Standard range: 2.0-3.0 High-intensity range: 2.5-3.5 Refer to indication-specific guidelines for appropriate target ranges for prosthetic heart valve replacement. Current interpretive data was last revised on 2019. Blood 06/04/2024 9:45 AM TRAINING DEVELOPMENT DIRECTOR 06/04/2024 9:51 AM TRAINING DEVELOPMENT DIRECTOR Edwin Rivera MD LAB BLOOD ORDERABLES Final R esult [facility]) 1 [facility] Department [place] [address] * D-dimer, quantitative (06/04/2024 9:45 AM TRAINING DEVELOPMENT DIRECTOR) D-Dimer <215 <=499 ng/mL FEU [facility] ([place]) Comment: Interpretive data FDA approved the D-dimer, [...] 68, VTE cut-off 680 ng/ml FEU. References; Schouten HT et al. Brit Med J. 2013;346:f2492. Tanya et al. Annals Int Med. 2015;163:701-11. Current interpretive data was last revised on 2019. Blood 06/04/2024 9:45 AM TRAINING DEVELOPMENT DIRECTOR 06/04/2024 9:51 AM TRAINING DEVELOPMENT DIRECTOR Edwin Rivera MD LAB BLOOD ORDERABLES Final R esult [facility] ([place]) 1 [facility] Department [place] [address] * Comprehensive metabolic panel (06/04/2024 9:45 AM TRAINING DEVELOPMENT DIRECTOR) Sodium 141 135 - 145 mmol/L Potassium, pl 4.2 3.3 - 4.9 mmol/L [facility] ([place]) Chloride 105 97 - 110 mmol/L [facility] ([place]) CO2 26 22 - 32 mmol/L [facility] ([place]) Anion gap 10 2 - 15 mmol/L [facility] ([place]) BUN 9 6 - 25 mg/dL [facility] ([place]) Creatinine 0.78 0.60 - 1.10 mg/dL [facility] ([place]) Glucose 106 70 - 199 mg/dL [facility] ([place]) Comment: Interpretive Data Fasting glucose [...] [facility] ([place]) Blood 06/04/2024 9:45 AM TRAINING DEVELOPMENT DIRECTOR 06/04/2024 9:51 AM TRAINING DEVELOPMENT DIRECTOR us Edwin Rivera MD LAB BLOOD ORDERABLES Final R esult [facility] [place] 1 [facility] Department [place] [address] * XR Chest 1 Vw Portable (06/04/2024 9:32 AM TRAINING DEVELOPMENT DIRECTOR) Anatomical Region Laterality Modality Body, Chest N/A Computed Radiogr aphy 06/04/2024 9:42 AM TRAINING DEVELOPMENT DIRECTOR Narrative 06/04/2024 9:42 AM TRAINING DEVELOPMENT DIRECTOR EXAM DESCRIPTION: XR CHEST 1 VIEW REASON FOR STUDY: pain Pt ambulatory to triage with c/o crushing chest pain since 299. Pt states it is more difficult to [...] Electronically signed by Jairo Thomas M.D. CH: Report ID: [id number] Reading Location: [id number] Procedure Note Jario Thomas Jr., MD - 06/04/2024 EXAM DESCRIPTION: [...] Electronically signed by Jairo Thomas M.D. CH: Report ID: [id number] Reading Location: [id number] Edwin Rivera MD IMG XR PROCEDURES Final Resu lt * ECG 12 lead (06/04/2024 8:58 AM TRAINING DEVELOPMENT DIRECTOR) 06/04/2024 8:58 AM TRAINING DEVELOPMENT DIRECTOR Narrative [facility] - 06/04/2024 9:39 AM TRAINING DEVELOPMENT DIRECTOR Vent Rate: 100 bpm RR Interval: 597 msec [place] Interval: 132 msec QRS Duration: 76 msec QT Interval: 339 msec QTC Interval: 396 msec P-R-T [place]: 79 - 67 - 64 degrees IMPRESSION: SINUS TACHYCARDIA NONSPECIFIC T-WAVE ABNORMALITY ABNORMAL RHYTHM ECG Compared to prior EKG, heart rate has increased Electronically Signed By: Edinson Colindres MD Edwin Rivera MD ECG ORDERABLES Final Result [facility] * COLONOSCOPY (05/10/2023 8:40 AM CDT) Anatomical Region Laterality Modality Other Narrative Procedure Note Mary Ann Blake MD - 05/10/2023 8:40 AM CDT [facility] Patient Name: Karena Ramey Procedure Date: 05/10/2023 8:40 AM Date of : 1975 Admit Type: Outpatient Age: 48 Gender: Female Attending MD: Mary Ann Blake M.D. Room: [facility] ENDOSCOPY ROOM 1 Note Status: Finalized Patient [...] under direct vision. The Pediatric Colonoscope [id number] was introducedthrough the anus and advanced to [...] 8:40 AM Procedure Code(s): --- Professional --- 46990, Colonoscopy, flexible; with biopsy, single or multiple Diagnosis Code(s): --- Professional --- Z12.11, Encounter for screening for malignant neoplasm of colon K64.8, Other hemorrhoids D12.8, Benign neoplasm of rectum CPT copyright 2020 [employer]. All rights reserved. The codes documented in this report are preliminary and upon piece marker small arms reviewmay be revised to meet current compliance requirements. Recognized by the [employer] for promoting quality in endoscopy us Mary Ann Blake MD ENDOSCOPY PROCEDURES Final [...] are no suspicious calcifications in either breast. us Self Screening Mammogram IMG MAMMO PROCEDURES Fi nal Result from Last 3 Months or Most Recently Relevant to Health Maintenance Insurance [facility] Advance Directives For more information, please contact: [phone] * Full Code (Latest Code Status on File) Date Activated Date Inactivated Comments 05/10/2023 8:38 AM 05/10/2023 2:54 PM * Full Code Date Activated Date Inactivated Comments 05/10/2023 8:38 AM 05/10/2023 8:38 AM * Full Code Date Activated Date Inactivated Comments 05/20/2021 9:03 AM 05/20/2021 3:06 PM * Full Code Date Activated Date Inactivated Comments 05/20/2021 9:03 AM 05/20/2021 9:03 AM Care Teams Stitcher Hand Relationship Specialty Start Date End Date Tino Darling MD [address] [place] [address] [address] [place] [address] PCP - General Family Medicine 05/18/22
--- OUTSIDE RECORDS SUMMARY | 2024-09-02 19:23 | XMS_ITS | Clinical Summary ---
Author Organization [facility] Address [facility] [place] [address] Phone Care Team Providers Care Cutter Helper Name Role Phone Tino Darlign MD Primary Care Provider [phone] Cristian Mcginnis MD Unavailable Allergies Active Allergy Reactions Criticality Noted Date Comments Gabapentin Other (see Comments) 06/03/2022 Double vision Latex Rash 06/03/2022 Penicillins Other (see Comments) 09/26/2017 I will swell up Sulfa Antibiotics Other (see Comments) 09/27/19 18 I will swell up Medications hydrOXYzine (ATARAX) 25 MG Tablet Take 25 mg by mouth every 6 hours as needed. Active zolpidem (AMBIEN) 10 MG Tablet Take 10 mg by mouth nightly as needed. Active albuterol 108 (90 Base) MCG/ACT Aerosol Solution take 2 Puffs by inhalation every 4 hours as needed. Active baclofen (LIORESAL) 10 MG Tablet Take 10 mg by mouth 3 times daily. Active lidocaine (LIDODERM) 5 % Patch 1 Patch by Transdermal route every 24 hours. Active Levonorgestrel (MIRENA, 52 MG, IU) by Intrauterine route. Active triamcinolone (KENALOG) 0.1 % Cream Apply 2 times daily. Active montelukast (Singulair) 10 MG Tablet Take 10 mg by mouth every evening. Active OMEPRAZOLE PO Take by mouth. A ctive Active Problems Problem Noted Date Diagnosed Date Situational anxiety 04/06/2023 Family History Relation Name Status Comments Father Alive Mother Alive Social History Tobacco Use Types Packs/Day Years Used Date Smoking Tobacco: Every Day Cigarettes 1 30 Started: 07/10/1999 Smokeless Tobacco: Never Tobacco Cessation:Ready to Q uit: Not Asked; Counseling Given: Not Answered Alcohol Use Standard Drinks/Week Comments Not Currently 0 (1 standard drink = 0.6 oz pur e alcohol) AUDIT-C Answer Date Recorded Frequency of Alcohol Consumption Never 03/10/2019 Average Number of Drinks Not on file 019 Frequency of Binge Drinking Not on file 07/2018 Sexually Active Control Partners Comments Yes Male Comments No Sex and Gender Information Value Date Recorded Sex Assigned at Not on file Legal Sex Female 9:57 PM CDT Gender Identity Not on file Sexual Orientation Not on file Last Filed Vital Signs Vital Sign Reading Time Taken Comments Blood Pressure 120/80 08/29/2022 9:21 AM MEDICAL ADMINISTRATIVE ASSISTANT Pulse 70 08/29/2022 9:21 AM MEDICAL ADMINISTRATIVE ASSISTANT Temperature 35.6 C (96 F) 08/29/2022 9:21 AM MEDICAL ADMINISTRATIVE ASSISTANT Respiratory Rate 17 08/29/2022 9:21 AM MEDICAL ADMINISTRATIVE ASSISTANT Oxygen Saturation 99% 08/29/2022 9:21 AM MEDICAL ADMINISTRATIVE ASSISTANT Inhaled Oxygen Concentration - - Weight 64.3 kg (141 lb 11.2 oz) 08/29/2022 9:21 AM MEDICAL ADMINISTRATIVE ASSISTANT Height 165.1 cm (5' 5 ) 08/29/2022 9:21 AM MEDICAL ADMINISTRATIVE ASSISTANT Body Mass Index 23.58 08/29/2022 9:21 AM MEDICAL ADMINISTRATIVE ASSISTANT Plan of Treatment Health Maintenance Due Date Last Done Comments Hepatitis C Virus (HCV) Screening 1975 Hepatitis B Immunization (1 of 3 - 19+ 3-dose series) 1994 Pneumococcal Immunization Combined (1 of 2 - PCV) 1994 Pap Smear 1996 Cervical Cancer Screening (CCS) 2005 HPV/Cotest 2005 Influenza Immunization (#1) 03/10/202404/10, 04/26/2017, 05/11/2016 SARS-COV-2 Immunization ( season) 2024 Mammogram 04/10/2025 04/10/2024, 02/07, 01/06/2022, Additional history exists Colonoscopy 05/10/2033 05/10/2023 Colorectal Cancer Screening 05/10/2033 Respiratory Syncytial Virus (RSV) Immunization (Adult) (1 - 1-dose 75+ series) 2050 05/10/2023 DTaP/Tdap/Td Immunization Discontinued 05/11/2016, 02/2013 TdaP Immunization Completed 05/11/2016, 10/15/2012 Discussion re Starting/Frequency of Mammograms Completed 04/10/2024, 03/27/2023, 02/24/2023, Additional history exists Meningococcal Immunization (ACWY) Aged Out No longer eligible based on patient's age to complete this topic Rotavirus Immunization Aged Out No lo nger eligible based on patient's age to complete this topic Procedures Procedure Name Priority Date/Time Associated Diagnosis Comments TIESHA SCREENING BILATERAL DIGITAL W CAD W СВЕТЛАНА Routine 04/10/2024 11:21 AM CDT Visit for screening mammogram from Last 3 Months or Most Recently Relevant to Health Maintenance Results * TIESHA SCREENING BILATERAL DIGITAL W CAD W СВЕТЛАНА (04/10/2024 11:21 AM CDT) Anatomical Region Laterality Modality breast Bilateral Mammography 04/10/2024 10:3 0 AM CDT Narrative 04/11/2024 10:10 AM CDT - TIESHA SCREENING BILATERAL DIGITAL W CAD W СВЕТЛАНА BILATERAL DIGITAL SCREENING MAMMOGRAM 3D/2D WITH CAD WITH MEDIOLATERAL OBLIQUE CRANIOCAUDAL: 04/10/2024 The study was acquired using digital technology and interpreted from soft copy. Current study was also evaluated with ICAD version 7.2. 2D digital mammographic views, as well as 3D digital tomosynthesis were performed in the CC and MLO projections. CLINICAL: Routine screening. Patient has no complaints. No personal history of cancer. No family history of breast cancer. COMPARISONS: Comparison is made to exams dated: 02/24/2023, 03/27/2023 [facility], 11/22/2021 [facility], and [facility]. BREAST TISSUE:There are scattered areas of fibroglandular density. FINDINGS: No significant masses, calcifications, or other findings are seen in either breast. There has been no significant interval change. IMPRESSION: NEGATIVE There is no mammographic evidence of malignancy. A 1 year screening mammogram is recommended. A letter will be sent to the patient with these results. The patient will be entered into a reminder system with a target due date of 1 year for her next screening exam. Electronically signed by: Jacqui reed/penrad:04/10/2024 12:39:35 Acid Pumper(s): RT Palomo(R)(M), [facility] letter sent: Normal Exam Reading location: [facility] Mammogram BI-RADS: Category 1: Negative Procedure Note Jacqui Bonilla MD - 04/11/2024 - TIESHA SCREENING BILATERAL DIGITAL W CAD W СВЕТЛАНА BILATERAL DIGITAL SCREENING MAMMOGRAM 3D/2D WITH CAD WITH MEDIOLATERAL OBLIQUE CRANIOCAUDAL: 04/10/2024 The study was acquired using digital technology and interpreted from soft copy. Current study was also evaluated with ICAD version 7.2. 2D digital mammographic views, as well as 3D digital tomosynthesis were performed in the CC and MLO projections. CLINICAL: Routine screening. Patient has no complaints. No personal history of cancer. No family history of breast cancer. COMPARISONS: Comparison is made to exams dated: 02/24/2023, 03/27/2023 [facility], 11/22/2021 [facility], and 10/02/2018 [facility]. BREAST TISSUE:There are scattered areas of fibroglandular density. FINDINGS: No significant masses, calcifications, or other findings are seen in either breast. There has been no significant interval change. IMPRESSION: NEGATIVE There is no mammographic evidence of malignancy. A 1 year screening mammogram is recommended. A letter will be sent to the patient with these results. The patient will be entered into a reminder system with a target due date of 1 year for her next screening exam. Electronically signed by: Jacqui reed/penrad:04/10/2024 12:39:35 Acid Pumper(s): RT Palomo(R)(M), [facility] letter sent: Normal Exam Reading location: [place] Mammogram BI-RADS: Category 1: Negative Tino Darling MD IMG MAMMO ORDERABLES Final Res ult from Last 3 Months or Most Recently Relevant to Health Maintenance Insurance [employer]ICAID [employer] Care Teams Cutter Helper Relationship Specialty Start Date End Date Tino Darling MD [address] [place] [address] PCP - General Family Medicine 12/11/20 Cristian Mcginnis MD [address] [place] [id number] Consulting Physician Neurology 08/29/22
--- OUTSIDE RECORDS SUMMARY | 2024-09-02 19:23 | XMS_ITS | Referral Summary ---
Author Organization [facility] Address [address] [place] [address] Care Team Providers Care Medical Orderly Name Role Phone Izzy Mullen MD Primary Care Provider Source Comments [facility],non-[facility] Affiliates and Associated Physician Practices is amultiple site organization consisting of ambulatory clinics and hospital sitesin [place], [place], [place] and [place]. This disclosure is being madepursuant to the Care Everywhere program and may not contain all information available regarding this patient. Last updated 18.[facility] Allergies Active Allergy Reactions Criticality Noted Date Comments Latex Itching 07/19/2019 Penicillins Urticaria Medium 09/26/2017 I will swell up Sulfa Drugs Urticaria Medium 09/26/2017 I will swell up Medications * Be aware that medications may not be up to date on this document. Alwaysverify current medications with the patient. Medication Sig Dispensed Refills Start Date End Date Status albuterol HFA (PROVENTIL;VENTOLIN;P ROAIR) 108 (90 Base) MCG/ACT inhaler Inhale 2 puffs by mouth Active hydrOXYzine hcl (ATARAX) 25 MG tablet Take 25 mg by mouth Active ibuprofen (MOTRIN) 400 MG tablet Take 400 mg by mouth every 6 hours as needed for Pain Active cetirizine (ZyrTEC) 10 MG tablet Take 10 mg by mouth once daily as needed 04/10/2022 Active famotidine (Pepcid) 40 MG tablet 04/10/2022 Active baclofen (Lioresal) 10 MG tablet Take 10 mg by mouth 2 times daily as needed 02/07/2022 Active zolpidem (Ambien) 5 MG tablet Take 5 mg by mouth nightly as needed 03/16/2022 Active Multiple Vitamins-Minerals (MULTIVITAMIN ADULTS PO) Active melatonin 5 MG capsule Take 5 mg by mouth at bedtime Active mometasone (Elocon) 0.1 % ointmentIndications:O ther specified dermatitis Apply to affected area on right leg BID. 30 day supply. 45 g 2 04/14/2022 Active Active Problems Problem Noted Date Diagnosed Date Other specified dermatitis 04/14/2022 History of COVID-19 11/04/2021 Social History Tobacco Use Types Packs/Day Years Used Date Smoking Tobacco: Every Day Cigarettes Smokeless Tobacco: Never Sex and Gender Information Value Date Recorded Sex Assigned at Female 10/18/2021 3:50 PM CDT Gender Identity Female 10/18/2021 3:50 PM CDT Sexual Orientation Straight 10/18/2021 3: 50 PM CDT Last Filed Vital Signs Vital Sign Reading Time Taken Comments Blood Pressure 106/69 07/19/2019 1:10 PM AMMUNITION SPECIALIST Pulse 96 07/19/2019 1:10 PM AMMUNITION SPECIALIST Temperature - - Respiratory Rate - - Oxygen Saturation - - Inhaled Oxygen Concentration - - Weight 60.3 kg (133 lb) 07/19/2019 1:10 PM AMMUNITION SPECIALIST Height 165.1 cm (5' 5 ) 07/19/2019 1:10 PM AMMUNITION SPECIALIST Body Mass Index 22.13 07/19/2019 1:10 PM AMMUNITION SPECIALIST Plan of Treatment Not on file Care Teams Medical Orderly Relationship Specialty Start Date End Date Izzy Mullen MD [address] [place] [phone] PCP - General Family Medicine 07/19/19
--- OUTSIDE RECORDS SUMMARY | 2024-09-02 19:23 | XMS_ITS | Clinical Summary ---
Author Organization [facility] Address [address] [place] [address] Care Team Providers Care Quality Systems Specialist Name Role Phone Verónica Stanley MD Primary Care Provider [phone] Allergies Active Allergy Reactions Criticality Noted Date Comments Penicillins Other (see comment) 09/26/2017 I will swell up Sulfa Antibiotics Other (see comment) 8 I will swell up Medications * This document contains information received from the source organization and may not represent a complete record from that organization. traMADol (ULTRAM) 50 MG tablet 1-2 tabs po q6 hours prn pain 16 tablet 12/17/2017 Active Social History Tobacco Use Types Packs/Day Years Used Date Smoking Tobacco: Never Assessed Comments Unknown Sex and Gender Information Value Date Recorded Sex Assigned at Not on file Legal Sex Female 10:07 PM RIDING INSTRUCTOR Gender Identity Not on file Sexual Orientation Not on file Last Filed Vital Signs Vital Sign Reading Time Taken Comments Blood Pressure 107/67 12/17/2017 8:12 AM CDT Pulse 92 12/17/2017 8:12 AM CDT Temperature 36.4 C (97.5 F) 12/17/2017 8:12 AM CDT Respiratory Rate 15 12/17/2017 8:12 AM CDT Oxygen Saturation 95% 12/17/2017 8:12 AM CDT Inhaled Oxygen Concentration - - Weight 67.6 kg (149 lb) 12/17/2017 8:12 AM CDT Height 165.1 cm (5' 5 ) 12/17/2017 8:12 AM CDT Body Mass Index 24.79 12/17/2017 8:12 AM CDT Plan of Treatment Health Maintenance Due Date Last Done Comments Cervical Cancer Screening Pa p Smear (Age 30 to 64) Every 3 Years 1975 Colorectal Cancer Screening Colonoscopy (10 Years) 1975 Annual Physical 1978 Hepatitis C 1993 DTaP, Tdap and Td Vaccines ( 1 - Tdap) 1994 Hepatitis B Vaccines (1 of 3 - 19+ 3-dose series) 1994 Cervical Cancer Screening Pa p with HPV Testing (Age 30 to 64) Every 5 Years 2005 Cervical Cancer Screening with HPV 2005 Mammogram Screening 2015 COVID-19 Vaccine (2023-2 5 season) 2024 Influenza Adult (#1) 2024 Meningococcal B Vaccine Aged Out No l onger eligible based on patient's age to complete this topic Meningococcal Vaccine Aged Out No dalia hanh eligible based on patient's age to complete this topic Pneumococcal Vaccine: Pediat rics (0 to 5 Years) and At-Risk Patients (6 to 64 Years) Aged Out No longer eligible b ased on patient's age to complete this topic RSV Immunizations Under 20 Months Aged Out No longer eligible based on patient's age to complete this topic Insurance [place] [address] [place] [address] Advance Directives Documents on File Type Date Recorded Patient Director Of Surgery Expl anation Advance Directives and Living Will 09/18/2017 POWER OF COLOR SHOP HELPER FO R HEALTH CARE Advance Directives and Living Will 09/06/2017 POWER OF COLOR SHOP HELPER FO R HEALTH CARE Advance Directives and Living Will 09/06/2017 POWER OF COLOR SHOP HELPER FO R HEALTH CARE Advance Directives and Living Will 07/27/2017 POWER OF COLOR SHOP HELPER FO R HEALTH CARE Advance Directives and Living Will 07/18/2017 POWER OF COLOR SHOP HELPER FO R HEALTH CARE Advance Directives and Living Will 05/25/2017 POWER OF COLOR SHOP HELPER FO R HEALTH CARE Advance Directives and Living Will 08/18/2016 POWER OF COLOR SHOP HELPER FO R HEALTH CARE Advance Directives and Living Will 08/08/2016 POWER OF COLOR SHOP HELPER FO R HEALTH CARE Advance Directives and Living Will 07/06/2016 POWER OF COLOR SHOP HELPER FO R HEALTH CARE Advance Directives and Living Will 07/04/2016 POWER OF COLOR SHOP HELPER FO R HEALTH CARE Advance Directives and Living Will 06/28/2016 POWER OF COLOR SHOP HELPER FO R HEALTH CARE Care Teams Quality Systems Specialist Relationship Specialty Start Date End Date Verónica Stanley MD PCP - General FAMILY PRACTICE 09/26/17
--- OUTSIDE RECORDS SUMMARY | 2024-09-02 19:23 | XMS_ITS | Clinical Summary ---
Author Organization [facility] Address [address] [place] [address] Care Team Providers Care Health Practice Manager Name Role Phone Izzy Mullen MD Primary Care Provider [phone] Source Comments [facility],non-owned Affiliates and Associated Physician Practices is amultiple site organization consisting of ambulatory clinics and hospital sitesin [place], [place], [place] and [place]. This disclosure is being madepursuant to the Care Everywhere program and may not contain all information available regarding this patient. Last updated 18.[facility] Allergies Active Allergy Reactions Criticality Noted Date [...] Comments Blood Pressure 106/69 07/19/2019 1:10 PM PIN WORKER Pulse 96 07/19/2019 1:10 PM PIN WORKER Temperature - - Respiratory Rate - - Oxygen Saturation - - Inhaled Oxygen Concentration - - Weight 60.3 kg (133 lb) 07/19/2019 1:10 PM PIN WORKER Height 165.1 cm (5' 5 ) 07/19/2019 1:10 PM PIN WORKER Body Mass Index 22.13 07/19/2019 1:10 PM PIN WORKER Plan of Treatment Health Maintenance Due Date Last Done Comments COLOGUARD (AGES 45-75) - COL ON CA SCREENING 1975 COLON MONITORING 1975 COLONOSCOPY - COLON CA SCREENING 1975 CT COLONOGRAPHY - COLON CA SCREENING 1975 Colorectal Cancer Screening 1975 FIT - COLON CA SCREENING 1975 FLEX SIG - COLON CA SCREENING 1975 LIPID TESTING 1975 MAMMOGRAM 1975 PAP SMEAR 1975 HIV SCREENING 1990 HEPATITIS C SCREENING 04/24/1993 DTAP/TDAP/TD VACCINES (1 - Tdap) 1994 HEPATITIS B VACCINE (1 of 3 - 19+ 3-dose series) 1994 COVID-19 VACCINE (2023-2 5 season) 2024 INFLUENZA VACCINE (#1) 2024 8, 04/26/2017, 05/11/2016 DEPRESSION SCREENING 07/10/2024 ZOSTER VACCINE (1 of 2) 2025 HIB VACCINE Aged Out No longer eligi ble based on patient's age to complete this topic HPV VACCINE Aged Out No longer eligi ble based on patient's age to complete this topic MENINGOCOCCAL (Group B) VACCINE Aged Out No longer eligible b ased on patient's age to complete this topic MENINGOCOCCAL VACCINE Aged Out No dalia hanh eligible based on patient's age to complete this topic Care Teams Health Practice Manager Relationship Specialty Start Date End Date Izzy Mullen MD [address] [place] [phone] PCP - General Family Medicine 07/19/19
--- OUTSIDE RECORDS SUMMARY | 2024-09-02 19:23 | XMS_ITS | Patient Health Summary ---
Author Organization [email or web address] Address [address] [place] [address] Care Team Providers Care Manager Mutual Fund Name Role Phone Izzy Mullen MD Primary Care Provider [phone] Note from [facility],non-owned Affiliates and Associated Physician Practices is amultiple site organization consisting of ambulatory clinics and hospital sitesin [place], [place], [place] and [place]. This disclosure is being madepursuant to the Care Everywhere program and may not contain all information available regarding this patient. Last updated 18.[email or web address] Allergies * Latex(Itching) * Penicillins(Urticaria) -Medium Criticality * Sulfa Drugs(Urticaria) -Medium Criticality Medications * Be aware that medications may not be up to date on this document. Alwaysverify current medications with the patient. * albuterol HFA (PROVENTIL;VENTOLIN;PROAIR) 108 (90 Base) MCG/ACT inhaler Inhale 2 puffs by mouth * hydrOXYzine hcl (ATARAX) 25 MG tablet Take 25 mg by mouth * ibuprofen (MOTRIN) 400 MG tablet Take 400 mg by mouth every 6 hours as needed for Pain * cetirizine (ZyrTEC) 10 MG tablet(Started 04/10/2022) Take 10 mg by mouth once daily as needed * famotidine (Pepcid) 40 MG tablet(Started 04/10/2022) * baclofen (Lioresal) 10 MG tablet(Started 02/07/2022) Take 10 mg by mouth 2 times daily as needed * zolpidem (Ambien) 5 MG tablet(Started 03/16/2022) Take 5 mg by mouth nightly as needed * Multiple Vitamins-Minerals (MULTIVITAMIN ADULTS PO) * melatonin 5 MG capsule Take 5 mg by mouth at bedtime * mometasone (Elocon) 0.1 % ointment(Started 04/14/2022) Apply to affected area on right leg BID. 30 day supply. 2 refills by 04/14/2023 Active Problems Problem Noted Date Diagnosed Date [...] Comments Blood Pressure 106/69 07/19/2019 1:10 PM GLUE MIXER Pulse 96 07/19/2019 1:10 PM GLUE MIXER Temperature - - Respiratory Rate - - Oxygen Saturation - - Inhaled Oxygen Concentration - - Weight 60.3 kg (133 lb) 07/19/2019 1:10 PM GLUE MIXER Height 165.1 cm (5' 5 ) 07/19/2019 1:10 PM GLUE MIXER Body Mass Index 22.13 07/19/2019 1:10 PM GLUE MIXER Care Teams Manager Mutual Fund Relationship Specialty Start Date End Date Izzy Mullen MD [address] [place] [phone] PCP - General Family Medicine 07/19/19
== END 2024-09-02 19:17 | disposition home or self-care (01) ==
PROVIDERS: Emergency Provider Nurse Practitioner; PCP Family Medicine
DX: J01.90 Acute sinusitis, unspecified (principal); F17.210 Nicotine dependence, cigarettes, uncomplicated; J45.909 Unspecified asthma, uncomplicated; K21.9 Gastro-esophageal reflux disease without esophagitis; M48.02 Spinal stenosis, cervical region; F41.9 Anxiety disorder, unspecified
CPT/HCPCS: 99213; G0463

== ENCOUNTER 2025-03-12 11:43 | Emergency (ER) | payer OTHER, SELFPAY ==
--- NOTE | ~2025-03-12 | XR_ITS ---
EXAM/PROCEDURE: XR abdomen/kub 1V - 03/12/2025 12:00 CDT HISTORY: 49 years old Female with RLQ abd pain COMPARISON: None available. TECHNIQUE: AP view(s) of the abdomen. FINDINGS: The bowel gas pattern is normal. There is no evidence for obstruction. Moderate stool burden. No free intraperitoneal air is identified on this supine radiograph. The visualized soft tissue shadows are unremarkable. No gross bony abnormalities are seen. Visualized portions of lung bases are clear. IUD in place. IMPRESSION: No acute process. Reviewed, dictated and finalized at location N. IMPRESSION: No acute process.
--- NOTE | 2025-03-12 11:45 | ED.ABDPAIN ---
HPI - Abdominal Pain General Chief Complaint: Abdominal Pain Stated Complaint: Abdominal Pain Time Seen by Provider: 03/12/25 12:07 Source: patient and RN notes reviewed Mode of arrival: ambulatory Limitations: no limitations History of Present Illness HPI narrative: 49-year-old female presents concern for 2 week history of right lower quadrant pain. Reports the pain is now radiating to her right low back. Reports pain is a 4. She reports she generally does not feel well. She denies fever, body aches, chills, sweats. Reports decreased appetite and nausea without vomiting. She reports she goes back between constipation and diarrhea. She has an IUD so she typically does not have periods, however she has had some vaginal spotting. She denies aggravating or relieving factors of her pain. She has been taking ibuprofen MD elicited complaint: abdominal pain Related Data Home Medications ?Medication ?Instructions ?Recorded ?Confirmed ?Last Taken ?Type albuterol sulfate 90 mcg/actuation 2 puff inhalation BID PRN sob 09/18/19 10/17/23 Unknown History aerosol inhaler (ProAir HFA) hydroxyzine HCl 25 mg tablet 25 mg PO TID 02/10/21 10/17/23 Unknown History budesonide-formoterol HFA 160 2 puff inhalation BID 07/09/23 10/17/23 Unknown History mcg-4.5 mcg/actuation aerosol inhaler (Symbicort) baclofen 10 mg tablet 10 mg PO BID PRN Spasms 09/26/23 10/17/23 Unknown History esomeprazole magnesium 40 mg mg 09/02/24 Unknown History capsule,delayed release famotidine 40 mg tablet mg 03/12/25 Unknown History ondansetron 4 mg disintegrating mg 03/12/25 Unknown History tablet sertraline 50 mg tablet mg 03/12/25 Unknown History Allergies Allergy/AdvReac Type Severity Reaction Status Date / Time latex Allergy Intermediate Hives Verified 03/12/25 11:53 levofloxacin Allergy Intermediate HIVES Verified 03/12/25 11:53 Sulfa (Sulfonamide Allergy Intermediate HIVES Verified 03/12/25 11:53 Antibiotics) Penicillins Allergy Mild Swelling Verified 03/12/25 11:53 Review of Systems Review of Systems: CONSTITUTIONAL: Denies malaise, chills, sweats, or fever. ENT: Denies rhinorrhea, congestion, sinus pain, otalgia or sore throat. CARDIOVASCULAR: Denies chest pain, palpitations, or edema. RESPIRATORY: Denies cough or dyspnea. GASTROINTESTINAL: Reports right lower quadrant abdominal pain, nausea. Denies vomiting, bloody, or mucous stools. GENITOURINARY: Denies dysuria or hematuria. MUSCULOSKELETAL: Denies myalgia. NEUROLOGIC: Denies headache. All systems reviewed & are unremarkable except as noted in HPI and below PMFSH Past Medical History Medical History (Updated 03/12/25 @ 13:01 by Kaia Wright NP) Cervical stenosis of spinal canal GERD (gastroesophageal reflux disease) Dental abscess Sinusitis per patient history Anxiety UTI (urinary tract infection) Asthma Surgical History Surgical History History of orthopedic surgery left shoulder Family History Family History Mother Family history non-contributory Social History Social History Smoking packs per day: 0.5 Smoking cigarettes per day: 10.0 Smoking status: Current every day smoker Tobacco type: cigarettes Alcohol intake: current Alcohol use details: Occasional Substance use: never Living arrangements: with family Gender identity (if verbalized by the patient): Female Sexual Orientation (if Verbalized by the Patient): Straight or Heterosexual Spiritual care concerns: No Comments At time of signature, agree with nursing past medical, surgical, social and family history. There is no relevant family history pertinent to the presenting complaint Exam Narrative: GENERAL: Well-appearing, well-nourished, and in no acute distress. HEAD: Normocephalic, atraumatic. EYES: PERRLA, conjunctivae clear, and EOMI. ENT: Nares clear, turbinates pink, no rhinorrhea or epistaxis. Mucous membranes moist. Oropharynx without edema, erythema, or lesions. Tonsils not enlarged and without exudate. NECK: Supple. No lymphadenopathy CHEST: Speaks in full sentences. No respiratory distress. HEART: Regular rate and rhythm. ABDOMEN: Soft, flat, nondistended, right lower quadrant tenderness. No guarding, rebound tenderness, or rigidity. No pulsatile masses. Bowel sounds present in all four quadrants. No organomegaly. Negative Starkey?s sign. No periumbilical tenderness. No Supra public tenderness or distension. Good femoral pulses bilaterally. No hernia noted. No scars or surface trauma. SKIN: Warm, dry, no rash. NEURO: Alert and oriented x3. PSYCH: Normal mood and affect Course Course Emergency Course: Patient is aware of diagnosis, understands and agrees to treatment plan. Anticipatory guidance given. Patient agrees to follow-up as directed and is aware of reasons to seek care at the emergency department. Portions of this record may have been created with voice recognition software Level of Care: Express Care Visit CRYSTALLIZER OPERATOR/PA Physician Supervision Holger Vital Signs Vital signs: Vital Signs Temperature 98.3 F 03/12/25 11:48 Pulse Rate 89 03/12/25 11:48 Respiratory Rate 20 03/12/25 11:48 Blood Pressure 127/68 03/12/25 11:48 Pulse Oximetry 100 03/12/25 11:48 Oxygen Delivery Room Air 03/12/25 11:48 Temperature 98.3 F 03/12/25 11:48 Pulse Rate 89 03/12/25 11:48 Respiratory Rate 20 03/12/25 11:48 Blood Pressure 127/68 03/12/25 11:48 Pulse Oximetry 100 03/12/25 11:48 Oxygen Delivery Room Air 03/12/25 11:48 Reviewed. Transfer Transfered to: [facility] Transportation: Other (Private vehicle) Transfer rationale: Abdominal pain Critical Care Time Critical Care Time Critical Care Time: No Discharge Plan Discharge Clinical Impression: Abdominal pain Patient Disposition: Acute Care Hospital Condition: Stable Patient Language: Japanese Prescriptions: No Action baclofen 10 mg tablet 10 mg PO BID PRN (Reason: Spasms) famotidine 40 mg tablet ondansetron 4 mg tablet,disintegrating sertraline 50 mg tablet albuterol sulfate [ProAir HFA] 90 mcg/actuation Hfa Aerosol Inhaler 2 puff INHALATION BID PRN (Reason: sob) hydroxyzine HCl 25 mg Tablet 25 mg PO TID budesonide-formoterol [Symbicort] 160-4.5 mcg/actuation HFA aerosol inhaler 2 puff INHALATION BID esomeprazole magnesium 40 mg capsule,delayed release(DR/EC) Follow-up/Referrals: Phong,Tino Blackburn MD [Primary Care Provider] Time of Disposition: 12:59
[2025-03-12 11:48] VITALS: BP 127/68; PULSE 89; RESP 20; TEMP 36.8; O2SAT 100
[2025-03-12 12:42] LABS: EDUAAPPEAR Clear; EDUABILI Negative (Negative); EDUABLOOD Negative (Negative); EDUACOLOR1 Yellow; EDUAGLUCOSE Negative (Negative); EDUAKETONE Negative (Negative); EDUALEUKO Negative (Negative); EDUANITRATE Negative (Negative); EDUAPH 7.0; EDUAPROTEIN Negative (Negative); EDUASPGRAVITY 1.010; EDUAUROBILI 0.2
--- OUTSIDE RECORDS SUMMARY | 2025-03-12 13:22 | XMS_ITS | Clinical Summary ---
Author Organization [facility] Address [place] [address] Phone Care Team Providers Care Checker And Packer Name Role Phone Tino Darling MD Primary Care Provider [phone] Cristian Mcginnis MD Unavailable [phone] Allergies Active Allergy Reactions Criticality Noted Date [...] Noted Date Diagnosed Date Situational anxiety 04/06/2023 Encounters Date Type Department Care Team Description 02/24/2025 [facility] [address] [place] [address] Tino Darling MD Encounter for screening mammogram for breast cancer (Primary Dx) from Last 3 Months Family History Relation Name Status Comments Father [...] Comments Blood Pressure 120/80 08/29/2022 9:21 AM HAND ALTERATIONS SEAMSTRESS Pulse 70 08/29/2022 9:21 AM HAND ALTERATIONS SEAMSTRESS Temperature 35.6 C (96 F) 08/29/2022 9:21 AM HAND ALTERATIONS SEAMSTRESS Respiratory Rate 17 08/29/2022 9:21 AM HAND ALTERATIONS SEAMSTRESS Oxygen Saturation 99% 08/29/2022 9: 21 AM HAND ALTERATIONS SEAMSTRESS Inhaled Oxygen Concentration - - Weight 64.3 kg (141 lb 11.2 oz) 08/29/2022 9:21 AM HAND ALTERATIONS SEAMSTRESS Height 165.1 cm (5' 5) 08/29/2022 9:21 AM HAND ALTERATIONS SEAMSTRESS Body Mass Index 23.58 08/29/2022 9:21 AM HAND ALTERATIONS SEAMSTRESS Plan of Treatment Upcoming Encounters Date Type Department Care Team (Late st Contact Info) Description 04/14/2025 9:45 AM CDT [facility] [address] [place] [address] Tino Darling MD [address] [place] [address] [address] [place] [address] Discharge Disposition: Discharged to home or Selfcare Health Maintenance Due Date Last Done Comments Hepatitis C Virus (HCV) Screening 1975 Hepatitis B Immunization (1 of 3 - 19+ 3-dose series) 1994 Pneumococcal Immunization Combined (1 of 2 - PCV) 1994 Pap Smear 1996 Cervical Cancer Screening (CCS) 2005 HPV/Cotest 2005 Cologuard 2020 Immunochemical Fecal Occult Blood 2020 Influenza Immunization (#1) 03/10/202504/10, 04/26/2017, 05/11/2016 SARS-COV-2 Immunization ( season) 2025 Mammogram 04/10/2025 04/10/2024, 02/07, 01/06/2022, Additional history exists Colonoscopy 05/10/2033 05/10/2023 Colorectal Cancer Screening 05/10/2033 Respiratory Syncytial Virus (RSV) Immunization (Adult) (1 - 1-dose 75+ series) 2050 DTaP/Tdap/Td Immunization Discontinued 05/11/2016, 02/2013 TdaP Immunization Completed 05/11/2016, 10/15/2012 Discussion re Starting/Frequency of Mammograms Completed 04/10/2024, 03/27/2023, 02/24/2023, Additional history exists Human Papillomavirus (HPV) Immunization Aged Out No longer eligible based on patient's age to complete this topic Meningococcal Immunization (ACWY) Aged Out No longer [...] is made to exams dated: 02/24/2023, 03/27/2023 [facility], 11/22/2021 [facility], and 10/02/2018 [facility]. BREAST TISSUE:There are scattered areas of [...] next screening exam. Electronically signed by: Jacqui reed/jyoti:04/10/2024 12:39:35 Delivery Manager(s): RT Palomo(R)(M), [facility] letter sent: Normal Exam Reading location: [facility] Mammogram BI-RADS: Category 1: Negative Procedure Note [...] is made to exams dated: 02/24/2023, 03/27/2023 [facility], 11/22/2021 [facility], and 10/02/2018 [facility]. BREAST TISSUE:There are scattered areas of [...] next screening exam. Electronically signed by: Jacqui reed/jyoti:04/10/2024 12:39:35 Delivery Manager(s): RT Palomo(R)(M), [facility] letter sent: Normal Exam Reading location: [place] Mammogram BI-RADS: Category 1: Negative Tino Darling MD IMG MAMMO ORDERABLES Final Res ult from Last 3 Months or Most Recently Relevant to Health Maintenance Insurance [place] [id number] MEDICAID [employer] Care Teams Checker And Packer Relationship Specialty Start Date End Date Tino Darling MD [address] [place] [address] [address] [place] [address] PCP - General Family Medicine 12/11/20 Cristian Mcginnis MD [address] [place] [address] Consulting Physician Neurology 08/29/22
--- OUTSIDE RECORDS SUMMARY | 2025-03-12 13:22 | XMS_ITS | Clinical Summary ---
Author Organization [facility] Address [address] [place] [address] Care Team Providers Care Rock Wool Insulator Name Role Phone Benson Darling Primary Care Provider [phone] Source Comments [facility],non-owned Affiliates and Associated Physician Practices is amultiple site organization consisting of ambulatory clinics and hospital sitesin [place], [place], [place] and [place]. This disclosure is being madepursuant to the Care Everywhere program and may not contain all information available regarding this patient. Last updated 18.[facility] Allergies Active Allergy Reactions Criticality Noted Date Comments Latex Itching 07/19/2019 Penicillins Urticaria Medium 09/26/2017 I will swell up Sulfa Drugs Urticaria Medium 09/26/2017 I will swell up Medications * This document contains information received from the source organization and may not represent a complete record from that organization. * Be aware that medications may not be up to date on this document. Alwaysverify current medications with the patient. albuterol HFA (PROVENTIL;VENT KIM;PROAIR) 108 (90 Base) MCG/ACT inhaler Inhale 2 [...] mouth nightly as needed 03/16/2022 Active Multiple Vitamins-Minera ls (MULTIVITAMIN ADULTS PO) Active melatonin 5 MG capsule Take 5 mg by mouth at bedtime Active mometasone (Elocon) 0.1 % ointmentIndicat ions:Other specified dermatitis Apply to affected area on right leg BID. 30 day supply. 45 g 2 04/14/2022 Active Active Problems Problem Noted Date Diagnosed Date Other specified dermatitis 04/14/2022 History of COVID-19 11/04/2021 Encounters Date Type Department Care Team Description 02/24/2025 Travel from Last 3 Months Social History Tobacco Use Types Packs/Day Years Used Date Smoking Tobacco: Every Day Cigarettes Smokeless Tobacco: Never Comments Unknown Sex and Gender Information Value Date Recorded Sex Assigned at Female 10/18/2021 3:50 PM CDT Legal Sex Female 6:27 AM METHODS STUDY ANALYST Gender Identity Female 10/18/2021 3:50 PM CDT Sexual Orientation Straight 10/18/2021 3: 50 PM CDT Last Filed Vital Signs Vital Sign Reading Time Taken Comments Blood Pressure 106/69 07/19/2019 1:10 PM METHODS STUDY ANALYST Pulse 96 07/19/2019 1:10 PM METHODS STUDY ANALYST Temperature - - Respiratory Rate - - Oxygen Saturation - - Inhaled Oxygen Concentration - - Weight 60.3 kg (133 lb) 07/19/2019 1:10 PM METHODS STUDY ANALYST Height 165.1 cm (5' 5) 07/19/2019 1:10 PM METHODS STUDY ANALYST Body Mass Index 22.13 07/19/2019 1:10 PM METHODS STUDY ANALYST Plan of Treatment Upcoming Encounters Date Type Department Care Team (Late st Contact Info) Description 03/21/2025 9:40 AM CDT Office Visit [facility] - Dermatology [address] [place] [address], [place] [address] Jose Garcia MD [address] [place] [address] [address] [place] [address] Health Maintenance Due Date Last Done Comments COLOGUARD (AGES 45-75) - COL ON CA SCREENING 1975 COLON MONITORING 1975 COLONOSCOPY - COLON CA SCREENING 1975 CT COLONOGRAPHY - COLON CA SCREENING 1975 Colorectal Cancer Screening 1975 FIT - COLON CA SCREENING 1975 FLEX SIG - COLON CA SCREENING 1975 LIPID TESTING 1975 MAMMOGRAM 1975 HIV SCREENING 1990 HEPATITIS C SCREENING 04/24/1993 DTAP/TDAP/TD VACCINES (1 - Tdap) 1994 HEPATITIS B VACCINE (1 of 3 - 19+ 3-dose series) 1994 PAP SMEAR 1996 COVID-19 VACCINE (2023-2 5 season) 2024 DEPRESSION SCREENING 07/10/2024 INFLUENZA VACCINE (#1) 2025 8, 04/26/2017, 05/11/2016 ZOSTER VACCINE (1 of 2) 2025 HIB VACCINE Aged Out No longer eligi ble based on patient's age to complete this topic HPV VACCINE Aged Out No longer eligi ble based on patient's age to complete this topic MENINGOCOCCAL (Group B) VACCINE SHARED DECISION-MAKING Aged Out No longer eligible based on patient's age to complete this topic MENINGOCOCCAL GROUPS A/C/Y/W VACCINE Aged Out No longer eligible b ased on patient's age to complete this topic [place] [address] [place] [address] [facility] Care Teams Rock Wool Insulator Relationship Specialty Start Date End Date Benson Darling [address] [place] [address] PCP - General Anesthesiology 02/24/25
--- OUTSIDE RECORDS SUMMARY | 2025-03-12 13:22 | XMS_ITS | Clinical Summary ---
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 Gender Identity Not on file Sexual [...] 8:12 AM CDT Height 165.1 cm (5' 5) 12/17/2017 8:12 AM CDT Body Mass Index [...] 2015 COVID-19 Vaccine (2023-2 5 season) 2024 Meningococcal B Vaccine Aged Out No l onger eligible based on patient's age to complete this topic Meningococcal Vaccine Aged Out No dalia hanh eligible based on patient's age to complete this topic Pneumococcal Vaccine: Pediat rics (0 to 5 Years) and At-Risk Patients (6 to 49 Years) Aged Out No longer eligible b ased on patient's age to complete this topic RSV Immunizations Under 20 Months Aged Out No longer eligible based on patient's age to complete this topic Insurance [place] [address] [place] [address] Advance Directives Documents on File Type Date Recorded Patient Manager Care Expl anation Advance Directives and Living Will 09/18/2017 POWER OF MAIL RIDER FO R HEALTH CARE Advance Directives and Living Will 09/06/2017 POWER OF MAIL RIDER FO R HEALTH CARE Advance Directives and Living Will 09/06/2017 POWER OF MAIL RIDER FO R HEALTH CARE Advance Directives and Living Will 07/27/2017 POWER OF MAIL RIDER FO R HEALTH CARE Advance Directives and Living Will 07/18/2017 POWER OF MAIL RIDER FO R HEALTH CARE Advance Directives and Living Will 05/25/2017 POWER OF MAIL RIDER FO R HEALTH CARE Advance Directives and Living Will 08/18/2016 POWER OF MAIL RIDER FO R HEALTH CARE Advance Directives and Living Will 08/08/2016 POWER OF MAIL RIDER FO R HEALTH CARE Advance Directives and Living Will 07/06/2016 POWER OF MAIL RIDER FO R HEALTH CARE Advance Directives and Living Will 07/04/2016 POWER OF MAIL RIDER FO R HEALTH CARE Advance Directives and Living Will 06/28/2016 POWER OF MAIL RIDER FO R HEALTH CARE Care Teams Financial Advisor Relationship Specialty Start Date End Date Verónica Stanley MD PCP - General FAMILY PRACTICE 09/26/17
--- OUTSIDE RECORDS SUMMARY | 2025-03-12 13:22 | XMS_ITS | Encounter Summary ---
Author Organization [facility] Address [address] [place] [address] Care Team Providers Care Visualization Developer Name Role Phone Tino Darling MD Primary Care Provider [phone] Encounter Details Date Type Department Care Team (Late st Contact Info) Description 03/03/2025 Results Follow-Up [facility] [address] [place] [address] [address] [address] Dawn Meadows MA Portable/Home Sleep Study Social History Tobacco Use Types Packs/Day Years Used Date Smoking Tobacco: Every Day Cigarettes 1.3 30 Smokeless Tobacco: Never Alcohol Use Standard Drinks/Week Comments Yes 0 (1 standard drink = 0.6 oz pur e alcohol) AUDIT-C Answer Date Recorded Q1: How often do you have a drink containing alc ohol? Never 09/24/2024 Average Number of Drinks Not on file 025 Frequency of Binge Drinking Not on file 09/07 Personal Safety Answer Date Recorded Have you ever been in or are you currently in a harmful physical or emotional relationship or is someone making you feel afraid or unsafe? Denies 06/04/2024 Comments No Sex and Gender Information Value Date Recorded Sex Assigned at Not on file Legal Sex Female 9:59 AM BOAT PILOT Gender Identity Female 05/17/2021 11:15 AM BOAT PILOT Sexual Orientation Straight 10/08/2020 8: 47 AM CDT documented as of this encounter Miscellaneous Notes * Result Encounter Note - Dawn Stark MA - 03/06/2025 8:31 AM CDT Sent message to patient with [facility] * Result Encounter Note - Dawn Meadows MA - 03/04/2025 2:27 PM CDT Lvm for pt to call back. * Result Encounter Note - Martha Vazquez CMA - 03/04/2025 11:20 AM CDT Spoke with patient and she can not do in lab sleep study due to not having someone to watch her son. She also said she is already taking 10mg of Ambien and its barely working for her. Please advise. * Result Encounter Note - Dawn Stark MA - 03/04/2025 11:16 AM CDT Placed order for patient. LVM for patient to call our office back with details.Patient is prescribed Ambien already. Check to see if she needs a refill * Result Encounter Note - Dawn Meadows MA - 03/03/2025 2:49 PM CDT . * Result Encounter Note - Dawn Meadows MA - 03/03/2025 1:54 PM CDT Does it just need to be diagnostic only? documented in this encounter Plan of Treatment Not on file documented as of this encounter Visit Diagnoses Not on filedocumented in this encounter Care Teams Visualization Developer Relationship Specialty Start Date End Date Tino Darling MD [address] [place] [address] [place] [address] PCP - General Family Medicine 05/18/22 documented as of this encounter
--- OUTSIDE RECORDS SUMMARY | 2025-03-12 13:22 | XMS_ITS | Encounter Summary ---
Author Organization [facility] Address [address] [place] [address] Care Team Providers Care Stone Grader Name Role Phone Verónica Stanley MD Primary Care Provider [phone] Encounter Details Date Type Department Care Team (Late st Contact Info) Description 09/23/2017 Abstract [facility] CONVERSION [address] [place] [address] , Generic Conversion, Social History Tobacco Use Types Packs/Day Years Used Date Smoking Tobacco: Never Assessed Comments Unknown Sex and Gender Information Value Date Recorded Sex Assigned at Not on file Legal Sex Female 10:07 PM REGULATORY SERVICES CONSULTANT Gender Identity Not on file Sexual Orientation Not on file documented as of this encounter Plan of Treatment Not on file documented as of this encounter Visit Diagnoses Not on filedocumented in this encounter Care Teams Stone Grader Relationship Specialty Start Date End Date Verónica Stanley MD PCP - General FAMILY PRACTICE 09/26/17 documented as of this encounter
--- OUTSIDE RECORDS SUMMARY | 2025-03-12 13:22 | XMS_ITS | Clinical Summary ---
Author Organization [facility] Address [address] [place] [address] Care Team Providers Care Student Dean Name Role Phone Tino Darling MD Primary Care Provider [phone] Allergies Active Allergy Reactions Criticality Noted Date [...] nightly as needed Active levonorgestreL (Mirena) IUD 09/04/19 20 Active ibuprofen (ADVIL,MOTRIN) 200 mg tab/capIndications :Pain Take 2 tablet/capsule (400 mg total) by mouth every 6 (six) hours as needed for pain Active baclofen (LIORESAL) 10 mg tablet Take 1 tablet (10 mg total) by mouth 2 (two) times a day as needed for muscle spasms Active multivit-min/sánchez us fumarate (MULTI VITAMIN ORAL) Take by mouth Ac tive lidocaine (LIDODERM) 5 % 10/18/19 23 Active Symbicort 160-4.5 mcg/actuation inhaler 08/07/19 24 Active famotidine (PEPCID) 40 mg tablet Take 1 tablet (40 mg total) by mouth daily 90 tablet 3 08/30/19 25 026 Active senna (SENOKOT) 8.6 mg tablet Take 1-2 tablets daily as needed for management of chronic constipation. 60 tablet 1 09/13/[address] (NexIUM) 40 mg capsule Take 1 capsule (40 mg total) by mouth daily before breakfast 90 capsule 3 12/27/19 25 026 Active zolpidem (AMBIEN) 5 mg tabletIndications: Sleep-Onset Insomnia Take 1 tablet (5 mg total) by mouth nightly as needed for sleep 30 tablet 2 01/04/20 25 026 Active zolpidem (AMBIEN) 10 mg tabletIndications: Sleep-Onset Insomnia Take 1 tablet (10 mg total) by mouth nightly as needed for sleep 30 tablet 02/06/20 25 Active ondansetron ODT (ZOFRAN-ODT) 4 mg disintegrating tablet Take 1 tablet (4 mg total) by mouth every 6 (six) hours as needed for nausea or vomiting 20 tablet 1 02/12/20 25 Active ondansetron ODT (ZOFRAN-ODT) 4 mg disintegrating tablet Take 1 tablet (4 mg total) by mouth every 6 (six) hours as needed for nausea or vomiting 20 tablet 1 07/07/20 24 025 Discontin ued(Reord er) Active Problems Problem Noted Date Diagnosed Date MARVIN (obstructive sleep apnea) 02/06/2025 Blood pressure elevated without history of HTN [...] 06/08/2020 Assessment & Plan (06/08/2020 8:08 PM SPOOL WORKER): Doxycycline 100 mg twice daily for 14 days Omeprazole 40 mg in the morning 30 minutes before a meal, Pepcid 40 mg at bedtime LPR discussed and Handout provided Dental infection 06/08/2020 Assessment & Plan (06/08/2020 10:31 AM SPOOL WORKER): Doxycycline 100 mg twice daily for 14 days Omeprazole 40 mg in the morning 30 minutes before a meal, Pepcid 40 mg at bedtime Dental and oral surgery contact provided Lung nodule 12/31/2019 Tobacco user 10/22/2019 Mild intermittent asthma 11/27/2018 Encounters Date Type Department Care Team Description 03/04/2025 Orders Only [facility] [address] [place] [address] [address] [place] [address] Zana Allison MD MARVIN (obstructive sleep apnea) (Primary Dx) 03/03/2025 Orders Only [facility] [address] [place] [address] Farheen Medina MA MARVIN (obstructive sleep apnea) (Primary Dx) 03/03/2025 Results Follow-Up [facility] [address] [place] [address] Dawn Meadows MA Portable/Home Sleep Study 02/25/2025 11:00 AM CDT - 02/25/2025 11:59 PM CDT Hospital Encounter [facility] [address] [place] [address] MARVIN (obstructive sleep apnea) Discharge Disposition: Discharge to home or self care 02/05/2025 Orders Only [facility] [address] [place] [address] Zana Allison MD MARVIN (obstructive sleep apnea) (Primary Dx) 02/04/2025 1:00 PM CDT - 02/04/2025 11:59 PM CDT Hospital Encounter [facility] [address] [place] [address] MARVIN (obstructive sleep apnea) Discharge Disposition: Discharge to home or self care 01/15/2025 Telephone [facility] [place] [address] [place] [id number] AshwinBrandonRadha 01/02/2025 9:45 AM CDT Office Visit [facility] [address] [place] [address] Zana Allison MD MARVIN (obstructive sleep apnea) (Primary Dx); Circadian rhythm sleep disorder, delayed sleep phase type; Psychophysiologica l insomnia from Last 3 Months Immunizations Immunization Administration [...] on file Legal Sex Female 9:59 AM SPOOL WORKER Gender Identity Female 05/17/2021 11:15 AM SPOOL WORKER Sexual Orientation Straight 10/08/2020 8: 47 AM CDT Obstetrics History Para Term AB IAB SAB Ectopic Multiple Livin g Live Births 5 5 5 Date Outcome GA Total Labor Labor/2nd/3rd Weight Sex Type Anes PTL Minerva A1 A5 Name Clin Term Term Term Term Term Last Filed Vital Signs Vital Sign Reading Time Taken Comments Blood Pressure 101/71 01/02/2025 9:32 AM CDT Pulse 84 01/02/2025 9:32 AM CDT Temperature 36.3 C (97.3 F) 06/04/2024 8:54 AM SPOOL WORKER Respiratory Rate 17 06/04/2024 11:30 AM SPOOL WORKER Oxygen Saturation 99% 01/02/2025 9:32 AM CDT Inhaled Oxygen Concentration - - Weight 68.7 kg (151 lb 6.4 oz) 01/02/2025 9:32 A M CDT Height 166.4 cm (5' 5.51) 01/02/2025 9:32 AM CD T Body Mass Index 24.8 01/02/2025 9:32 AM CDT Plan of Treatment Health Maintenance Due Date Last Done Comments Cervical Cancer Screening 1975 Depression Screening 1975 Hepatitis C Screening 1975 Hepatitis B Screening 1993 Regular Well Visit/Exam 18-64 1993 Pneumococcal vaccine <65 (1 of 2 - PCV) 1994 Influenza Vaccine (#1) 2025 8, 04/26/2017, 05/11/2016 Breast Cancer Screening-Mammogram 04/10/2025 04/10/2024, 04/10/2024, 02/24/2023, Additional history exists DTaP/Tdap/Td Vaccine (3 - Td or Tdap) 05/11/2026 05/11/2016, 10/15/2012 Colon Cancer Screening-Colonoscopy 05/10/20332022 Procedures Procedure Name Priority Date/Time Associated Diagnosis Comments PORTABLE/HOME SLEEP STUDY Routine 02/26/2025 12:44 PM CDT MARVIN (obstructive sleep apnea) PORTABLE/HOME SLEEP STUDY Routine 02/05/2025 2:55 PM CDT MARVIN (obstructive sleep apnea) COLONOSCOPY 05/10/2023 8:40 AM CDT SCREENING MAMMOGRAM BILATERAL W OTF Schedule Routine, Read Routine (OP Routine) 11/22/2021 10:02 AM CDT Screening mammogram, encounter for from Last 3 Months or Most Recently Relevant to Health Maintenance Results * Portable/Home Sleep Study (02/26/2025 12:44 PM CDT) Impressions Zana Allison MD - 02/26/2025 12:44 PM CDT Indication for study: Ms. Kilgore is a 49 year with chief complaint snoring, unrefreshing sleep daytime fatigue and tiredness. Vital statistics: Age: 49 years BMI: 25.1 Procedure: Unless otherwise noted, respiratory events were scored in accordance with recommended parameters outlined in the AASM Manual for the Scoring of Sleep and Associated Events, Version 2.6 Hypopneas were scored in accordance with acceptable parameters as outline in Chapter IX, Part 1: HSAT utilizing Respiratory Flow and or Effort Parameters, Category H., Section 1b. This study was performed using a [employer] apnea Link portable monitoring unit, a type 3 portable monitoring device. Variable monitored included nasal/oral pressure transduced airflow( PTAF), single respiratory effort (thoracic belt), snoring (derived from PTAF sensor) and pulse oximetry. Description of polysomnography findings: Patient had 1 hours and 5 minutes of monitored time. 37 minutes flow evaluation was present. 53 minutes oxygen saturation analysis was present. The apnea-hypopnea index was 0. Apneas and hypopneas recorded. Baseline oxygen saturation was 100%. Lowest oxygen saturation was 95%. Average oxygen saturation 98%. Pulse evaluation revealed maximum 98 beats per minute, minimum 64 beats per minute and average of 78 beats per minute Impression: This was suboptimal study. Patient has been recording only was 37 minutes. Optimal sampling was unable to be obtained. Limited data does not reveal evidence of significant sleep disorder breathing. Coordination is recommended. Recommendation: An in-lab sleep study to optimally assess Limitations of the study: 1. A sleep EEG was not recorded; therefore, the actual amount of time spent in sleep, stages of sleep and respiratory events associated with arousals cannot be determined by this study. 2. All indexes are computed against monitoring time, not total sleep time. For this reason, the degree of severity may be underestimated 3. The severity of the sleep apnea may vary from night to night depending on body position during sleep, REM sleep and sleep efficiency. These factors should be taken into consideration. Narrative Zana Allison MD - 02/26/2025 12:44 PM CDT Ocst is ready for review us Zana Allison MD SLEEP CENTER ORDERABLES Final Re sult * Portable/Home Sleep Study (02/05/2025 2:55 PM CDT) Impressions Zana Allison MD - 02/05/2025 2:55 PM CDT Indication for study: Ms. Barclay is a 49-year-old with chief complaint snoring, unrefreshing sleep daytime fatigue and tiredness. Vital statistics: Age: 49 years BMI: 25.1 Procedure: Unless otherwise noted, respiratory events were scored in accordance with recommended parameters outlined in the AASM Manual for the Scoring of Sleep and Associated Events, Version 2.6 Hypopneas were scored in accordance with acceptable parameters as outline in Chapter IX, Part 1: HSAT utilizing Respiratory Flow and or Effort Parameters, Category H., Section 1b. This study was performed using a [employer] apnea Link portable monitoring unit, a type 3 portable monitoring device. Variable monitored included nasal/oral pressure transduced airflow( PTAF), single respiratory effort (thoracic belt), snoring (derived from PTAF sensor) and pulse oximetry. Description of polysomnography findings: Patient had 1 hour and 6 minutes of monitored time. 36 minutes flow evaluation was present. 46 minutes oxygen saturation analysis was present. The apnea-hypopnea index was 0. Baseline oxygen saturation was 100%. Lowest oxygen saturation was 77%. Average oxygen saturation was 98%. Pulse evaluation revealed maximum 149 beats per minute, minimum 70 beats per minute and average of 81 beats per minute Impression: 1. This is a suboptimal study. Patient has had only 1 hour and 6 minutes of recording time. 2. Limited study does not reveal evidence of significant sleep disorder breathing. 3. Sleep hygiene should be reviewed to assess factors that may improve sleep quality. 4. Avoid alcohol sedatives and other MANAGEMENT SCIENTIST depression that may worsen sleep and disrupt normal sleep architecture Limitations of the study: 1. A sleep EEG was not recorded; therefore, the actual amount of time spent in sleep, stages of sleep and respiratory events associated with arousals cannot be determined by this study. 2. All indexes are computed against monitoring time, not total sleep time. For this reason, the degree of severity may be underestimated 3. The severity of the sleep apnea may vary from night to night depending on body position during sleep, REM sleep and sleep efficiency. These factors should be taken into consideration. Narrative Zana Allison MD - 02/05/2025 2:55 PM CDT Ocst is ready for review us Zana Allison MD SLEEP CENTER ORDERABLES Final Re sult * COLONOSCOPY (05/10/2023 8:40 AM CDT) Anatomical Region Laterality Modality Other Narrative Procedure Note Mary Ann Blake MD - 05/10/2023 8:[address] [facility] Patient Name: Karena Ramey Procedure Date: 05/10/2023 8:40 AM Date of : 1975 Admit Type: Outpatient Age: 48 Gender: Female Attending MD: Mary Ann Blake M.D. Room: [facility] 1 Note Status: Finalized [...] under direct vision. The Pediatric Colonoscope PCF-H190L [id number] was introducedthrough the anus and advanced to [...] 8:40 AM Procedure Code(s): --- Professional --- 31385, Colonoscopy, flexible; with biopsy, single or multiple Diagnosis Code(s): --- Professional --- Z12.11, Encounter for screening for malignant neoplasm of colon K64.8, Other hemorrhoids D12.8, Benign neoplasm of rectum CPT copyright 2020 [employer]. All rights reserved. The codes documented in this report are preliminary and upon labview programmer reviewmay be revised to meet current compliance requirements. Recognized by the [employer] for promoting quality [...] Most Recently Relevant to Health Maintenance Insurance [facility] [employer]PA [facility] Advance Directives For more information, please contact: [phone] * Full Code (Latest Code Status on File) Date Activated Date Inactivated Comments 05/10/2023 8:38 AM 05/10/2023 2:54 PM * Full Code Date Activated Date Inactivated Comments 05/10/2023 8:38 AM 05/10/2023 8:38 AM * Full Code Date Activated Date Inactivated Comments 05/20/2021 9:03 AM 05/20/2021 3:06 PM * Full Code Date Activated Date Inactivated Comments 05/20/2021 9:03 AM 05/20/2021 9:03 AM Care Teams Student Dean Relationship Specialty Start Date End Date Tino Darling MD [address] [place] [address] [address] [place] [address] PCP - General Family Medicine 05/18/22
--- OUTSIDE RECORDS SUMMARY | 2025-03-12 13:26 | XMS_ITS | Patient Health Record ---
Author Organization [facility] Address [address] [place] [address] Care Team Providers Care Aircraft Captain Name Role Phone Alejo Hinojosa Primary Care Provider Reason For Referral No Information Medications Medication SIG (Take, Route, Frequency, Duration) Notes Start Date End Date Status Flonase 50 MCG/ACT spray 1 spray by intranasal route every day in each nostril Nasal ([facility]) 02/06/2013 Active ProAir HFA 108 (90 Base) MCG/ACT inhale 2 puff by inhalation route 4 - 6 hours as needed Inhalation ([facility]) 02/06/2013 Active Mirena 20 MCG/24HR Intrauterine ([facility]) 03/23/2011 Active Plan Of Treatment No Information Insurance Providers Payer Name Payer Address Payer Phone Subscriber Number Group Number Insured Name Patient Relationship to Insured Coverage Start Date [facility]age End Date [facility] [id number] [place] [address] [id number] Karena Pineda Self - patient is the insured
== END 2025-03-12 13:05 | disposition short-term general hospital (02) ==
PROVIDERS: Emergency Provider Nurse Practitioner; PCP Family Medicine
DX: R10.31 Right lower quadrant pain (principal); M54.50 Low back pain, unspecified; F17.210 Nicotine dependence, cigarettes, uncomplicated; Z79.899 Other long term (current) drug therapy
CPT/HCPCS: 74018; 81003; 99213; G0463

== ENCOUNTER 2025-03-26 08:32 | Emergency (ER) | payer OTHER, SELFPAY ==
[2025-03-26 08:37] VITALS: BP 110/68; PULSE 76; RESP 14; TEMP 36.4; O2SAT 100
[2025-03-26 09:01] LABS: EDSTREPNEGPOS1 Negative (Negative)
--- NOTE | 2025-03-26 09:05 | ED_ITS ---
HPI - URI/Sore Throat General Chief Complaint: Upper Respiratory Infection Stated Complaint: throat/head congestion Time Seen by Provider: 03/26/25 08:53 Source: patient and RN notes reviewed Mode of arrival: ambulatory Limitations: no limitations History of Present Illness HPI Narrative: Patient presents today with a one-week history of nasal congestion, cough, postnasal drainage with a 2 day history of sore throat. Denies fever, shortness of breath. She has tried Mucinex and ibuprofen with mild improvement. Son with similar symptoms. Patient was on azithromycin the beginning of the month for sinusitis. Related Data Home Medications ?Medication ?Instructions ?Recorded ?Confirmed ?Last Taken ?Type albuterol sulfate 90 mcg/actuation 2 puff inhalation B ID PRN sob 09/18/19 10/17/23 Unknown History aerosol inhaler (ProAir HFA) hydroxyzine HCl 25 mg tablet 25 mg PO TID 02/10/2104/02 Unknown History budesonide-formoterol HFA 160 2 puff inhalation BID 10/17/23 Unknown History mcg-4.5 mcg/actuation aerosol inhaler (Symbicort) esomeprazole magnesium 40 mg mg 09/02/24 Unknown Hist ory capsule,delayed release famotidine 40 mg tablet mg 03/12/25 Unknown History sertraline 50 mg tablet mg 03/12/25 Unknown History Allergies Allergy/AdvReac Type Severity Reaction Status Date / Time latex Allergy Intermediate Hives Verified 03/26/25 08:55 levofloxacin Allergy Intermediate HIVES Verified 03/26/25 08:55 Sulfa (Sulfonamide Allergy Intermediate HIVES Verified 03/26/25 08:55 Antibiotics) Penicillins Allergy Mild Swelling Verified 03/26/25 08:55 [facility] Past Medical History Medical History Cervical stenosis of spinal canal GERD (gastroesophageal reflux disease) Dental abscess Sinusitis per patient history Anxiety UTI (urinary tract infection) Asthma Surgical History Surgical History History of orthopedic surgery left shoulder Family History Family History Mother Family history non-contributory Social History Social History Smoking packs per day: 0.5 Smoking cigarettes per day: 10.0 Smoking status: Current every day smoker Tobacco type: cigarettes Alcohol intake: current Alcohol use details: Occasional Substance use: never Living arrangements: with family Gender identity (if verbalized by the patient): Female Sexual Orientation (if Verbalized by the Patient): Straight or Heterosexual Spiritual care concerns: No Comments At time of signature, I have reviewed and agree with nursing past medical, surgical, social and family history unless otherwise noted. Please see nursing chart for further information. There is no relevant family history pertinent to the presenting complaint Exam Narrative: GENERAL: Mildly ill-appearing, well-nourished, and in no acute distress. HEAD: Normocephalic, atraumatic. EYES: EOMI. No redness or drainage. Conjunctivae normal. ENT: Mucous membranes pink and moist. Nares mild congestion. No rhinorrhea. TMs normal bilaterally. Throat normal. Uvula midline. NECK: Normal AROM. Supple. No lymphadenopathy. CHEST: No respiratory distress. Clear to auscultation. HEART: Regular rate and rhythm. No murmur appreciated. EXTREMITIES: Normal range of motion. No edema. SKIN: Warm, dry, no rash. Capillary refill normal. Normal skin turgor. NEURO: No focal deficits. Alert and oriented x3. Gait steady. PSYCH: Normal affect. No signs of depression or anxiety. Course Course Level of Care: Express Care Visit Vital Signs Vital signs: Vital Signs Temperature 97.6 F 03/26/25 08:37 Pulse Rate 76 03/26/25 08:37 Respiratory Rate 14 03/26/25 08:37 Blood Pressure 110/68 03/26/25 08:37 Pulse Oximetry 100 03/26/25 08:37 Oxygen Delivery Room Air 03/26/25 08:37 Temperature 97.6 F 03/26/25 08:37 Pulse Rate 76 03/26/25 08:37 Respiratory Rate 14 03/26/25 08:37 Blood Pressure 110/68 03/26/25 08:37 Pulse Oximetry 100 03/26/25 08:37 Oxygen Delivery Room Air 03/26/25 08:37 Reviewed MDM - URI/Sore Throat MDM Narrative Medical decision making narrative: 49-year-old female patient presents with history nasal congestion, cough, postnasal drip with a 2 day history of sore throat. Upon exam, patient has some mild nasal congestion but exam is otherwise. She has tried Mucinex and ibuprofen without much improvement. Rapid strep negative. Culture pending. Symptoms likely viral in etiology. Discussed [id number] medication use and duration of illness. No prescription medications indicated at this time. Anticipatory guidance given. Vital signs stable Differential Diagnosis Differential diagnosis: Likely upper respiratory infection, viral infection, pharyngitis and other (Strep throat) Lab Data Attestation: I reviewed the patient's lab results. Labs: Lab Results 03/26/25 Range/Units 08:59 POC Grp A Strep Screen Negative (Negative) Critical Care Time Critical Care Time Critical Care Time: No Discharge Plan Discharge Clinical Impression: Upper respiratory infection Qualifiers: URI type: unspecified URI Qualified Code(s): J06.9 - Acute upper respiratory infection, unspecified Patient Disposition: Home Condition: Stable Instructions: Upper Respiratory Infection (DC) Additional Instructions: Your rapid strep swab was negative today at [facility]. You will be notified in a few days if the culture comes back positive for strep, and appropriate antibiotics will be called in for you at that time. Your symptoms are likely due to a viral illness, which is not treated with antibiotics. Viral symptoms can be present for up to 7-10 days. Take Tylenol or ibuprofen for fever or pain. Rest and stay hydrated. Follow up with your PCP in 3-5 days if symptoms are not improving. Go to the ER immediately if you have any difficulty breathing or swallowing. Patient Language: Scottish Prescriptions: No Action famotidine 40 mg tablet sertraline 50 mg tablet albuterol sulfate [ProAir HFA] 90 mcg/actuation Hfa Aerosol Inhaler 2 puff INHALATION BID PRN (Reason: sob) hydroxyzine HCl 25 mg Tablet 25 mg PO TID budesonide-formoterol [Symbicort] 160-4.5 mcg/actuation HFA aerosol inhaler 2 puff INHALATION BID esomeprazole magnesium 40 mg capsule,delayed release(DR/EC) Follow-up/Referrals: Phong,Tino Blackburn MD [Primary Care Provider] Time of Disposition: 09:09
--- OUTSIDE RECORDS SUMMARY | 2025-03-26 09:06 | XMS_ITS | Clinical Summary ---
Author Organization [facility] Address [address] [place] [address] Care Team Providers Care Ldr Rn Name Role Phone Benson Darling Primary Care Provider [phone] Source Comments [facility],non-owned Affiliates and Associated Physician Practices is amultiple site organization consisting of ambulatory clinics and hospital sitesin [place], [place], [place] and [place]. This disclosure is being madepursuant to the Care Everywhere program and may not contain all information available regarding this patient. Last updated [email or web address] Allergies Active Allergy Reactions Criticality Noted Date [...] Active Problems Problem Noted Date Diagnosed Date Tongue lesion 03/21/2025 Facial flushing 08/09/2023 Other specified dermatitis 04/14/2022 History of COVID-19 11/04/2021 Encounters Date Type Department Care Team Description 03/21/2025 9:40 AM CDT Office Visit [facility] - Dermatology [address] [place] [phone] Jose Garcia MD Multiple benign melanocytic nevi of both upper extremities, both lower extremities, and trunk (Primary Dx); Lentigines; Bennett angioma; Dermatofibroma of both lower extremities; Telangiectasias; Neoplasm of unspecified behavior of bone, soft tissue, and skin 03/21/2025 Travel 02/24/2025 Travel from Last 3 Months Social History Tobacco Use Types Packs/Day Years Used Date Smoking Tobacco: Every Day Cigarettes Smokeless Tobacco: Never Comments Unknown Sex and Gender Information Value Date Recorded Sex Assigned at Female 10/18/2021 3:50 PM CDT Legal Sex Female 6:27 AM BRIMMER BLOCKER Gender Identity Female 10/18/2021 3:50 PM CDT Sexual Orientation Straight 10/18/2021 3: 50 PM CDT Last Filed Vital Signs Vital Sign Reading Time Taken Comments Blood Pressure 106/69 07/19/2019 1:10 PM BRIMMER BLOCKER Pulse 96 07/19/2019 1:10 PM BRIMMER BLOCKER Temperature - - Respiratory Rate - - Oxygen Saturation - - Inhaled Oxygen Concentration - - Weight 60.3 kg (133 lb) 07/19/2019 1:10 PM BRIMMER BLOCKER Height 165.1 cm (5' 5) 07/19/2019 1:10 PM BRIMMER BLOCKER Body Mass Index 22.13 07/19/2019 1:10 PM BRIMMER BLOCKER Plan of Treatment Upcoming Encounters Date Type Department Care Team (Late st Contact Info) Description 03/20/2026 9:00 AM CDT Office Visit [facility] - Dermatology [address] [facility] [place] [address] Jose Garcia MD [facility] [facility] [address] [place] [address] Health Maintenance Due Date Last Done Comments COLOGUARD (AGES 45-75) - COLON CA SCREENING 1975 CT COLONOGRAPHY - COLON CA SCREENING 1975 FIT - COLON CA SCREENING 1975 FLEX SIG - COLON CA SCREENING 1975 LIPID TESTING 1975 HIV SCREENING 1990 HEPATITIS C SCREENING 04/24/1993 DTAP/TDAP/TD VACCINES (1 - Tdap) 1994 HEPATITIS B VACCINE (1 of 3 - 19+ 3-dose series) 1994 PAP SMEAR 1996 DEPRESSION SCREENING 07/10/2024 COVID-19 VACCINE ( - season) 2025 INFLUENZA VACCINE (#1) 2025 8, 04/26/2017, 05/11/2016 ZOSTER VACCINE (1 of 2) 2025 MAMMOGRAM 04/10/2026 04/10/2024, 08/2023, 02/24/2023, Additional history exists COLON MONITORING 05/10/2033 05/10/2023 COLONOSCOPY - COLON CA SCREENING 05/10/2033 05/10/2023 Colorectal Cancer Screening 05/10/2033 HIB VACCINE Aged Out No longer eligi ble based on patient's age to complete this topic HPV VACCINE Aged Out No longer eligi ble based on patient's age to complete this topic MENINGOCOCCAL (Group B) VACCINE SHARED DECISION-MAKING Aged Out No longer eligible based on patient's age to complete this topic MENINGOCOCCAL GROUPS A/C/Y/W VACCINE Aged Out No longer eligible based on patient's age to complete this topic [place] Care Teams Ldr Rn Relationship Specialty Start Date End Date Benson Darling [address] [place] [address] PCP - General Anesthesiology 02/24/25
--- OUTSIDE RECORDS SUMMARY | 2025-03-26 09:07 | XMS_ITS | Encounter Summary ---
Author Organization [facility] Address [address] [place] [address] Care Team Providers Care Finisher Card Tender Name Role Phone Tino Darling MD Primary Care Provider [phone] Encounter Details Date Type Department Care Team (Late st Contact Info) Description 03/18/2025 Telephone [facility] Gastroenterology at [address] [place] [address] Radha Christopher Social History Tobacco Use Types Packs/Day Years Used Date Smoking Tobacco: Every Day Cigarettes 1.3 30 Smokeless Tobacco: Never Alcohol Use Standard Drinks/Week Comments Yes 0 (1 standard drink = 0.6 oz pur e alcohol) AUDIT-C Answer Date Recorded Frequency of Alcohol Consumption Not on file 03/18/2025 Q2: How many drinks containi ng alcohol do you have on a typical day when you are drinking? Patient does not drink Frequency of Binge Drinking Not on file 03/2025 Personal Safety Answer Date Recorded Have you ever been in or are you currently in a harmful physical or emotional relationship or is someone making you feel afraid or unsafe? 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 * Telephone Encounter - Kayleigh Allen MA - 03/20/2025 2:21 PM CDT Patient has been informed and will contact obgyn * Telephone Encounter - Radha Christopher - 03/20/2025 8:07 AM CDT LVM to CB and go over Angy's response. * Telephone Encounter - Radha Christopher - 03/18/2025 1:32 PM CDT Ms. Barclay called the office requesting an appointment MANJULA. Patient stated she was recently seen at the [facility] ED for RLQ pain, at which time it was recommended she follow-up with our office and have an US done. Ms. Barclay is scheduled to see Victorino on 04/24/2025, and I have explained that we do not have any sooner appointments with any provider. Patient asked that I send a message to inquire about whether or not we need to see her in-office prior to ordering US recommended by the ED. Please advise. documented in this encounter Plan of Treatment Not on file documented as of this encounter Visit Diagnoses Not on filedocumented in this encounter Care Teams Finisher Card Tender Relationship Specialty Start Date End Date Tino Darling MD [address] [place] [address] PCP - General Family Medicine 05/18/22 documented as of this encounter
--- OUTSIDE RECORDS SUMMARY | 2025-03-26 09:07 | XMS_ITS | Patient Health Record ---
Author Organization [facility] Address [address] [address] [facility] [address] [place] [address] Care Team Providers Care Game Farm Supervisor Name Role Phone Prudencio Goetz Unavailable [phone] Reason For Referral No Information Plan Of Treatment No Information
--- OUTSIDE RECORDS SUMMARY | 2025-03-26 09:07 | XMS_ITS | Patient Health Record ---
Author Organization [facility] Address [address] [place] [address] Care Team Providers Care Deicer Repairer Name Role Phone Alejo Hinojosa Primary Care Provider Reason For Referral No Information Medications Medication SIG (Take, Route, Frequency, Duration) Notes Start Date End Date Status Flonase 50 MCG/ACT spray 1 spray by intranasal route every day in each nostril Nasal ([facility]) 02/06/2013 Active ProAir HFA 108 (90 Base) MCG/ACT inhale 2 puff by inhalation route 4 - 6 hours as needed Inhalation ([facility]) 02/06/2013 Active Mirena 20 MCG/24HR Intrauterine ([facility]) 03/23/2011 Active Plan Of Treatment No Information Insurance Providers Payer Name Payer Address Payer Phone Subscriber Number Group Number Insured Name Patient Relationship to Insured Coverage Start Date [facility]age End [facility] [address] [place] [address] [id number] Karena Pineda Self - patient is the insured
--- OUTSIDE RECORDS SUMMARY | 2025-03-26 09:07 | XMS_ITS | Encounter Summary ---
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
--- OUTSIDE RECORDS SUMMARY | 2025-03-26 09:07 | XMS_ITS | Clinical Summary ---
Author Organization [facility] Address [address] [place] [address] Care Team Providers Care Sustainability Coordinator Name Role Phone Tino Darling MD Primary Care Provider [phone] Allergies Active Allergy Reactions Criticality Noted Date [...] nightly as needed Active levonorgestreL (Mirena) IUD 0 Active ibuprofen (ADVIL,MOTRIN) 200 mg tab/capIndications :Pain Take 2 tablet/capsule (400 mg total) by mouth every 6 (six) hours as needed for pain Active baclofen (LIORESAL) 10 mg tablet Take 1 tablet (10 mg total) by mouth 2 (two) times a day as needed for muscle spasms Active multivit-min/sánchez us fumarate (MULTI VITAMIN ORAL) Take by mouth Ac tive lidocaine (LIDODERM) 5 % 3 Active Symbicort 160-4.5 mcg/actuation inhaler 4 Active famotidine (PEPCID) 40 mg tablet Take 1 tablet (40 mg total) by mouth daily 90 tablet 3 5 026 Active senna (SENOKOT) 8.6 mg tablet Take 1-2 tablets daily as needed for management of chronic constipation. 60 tablet [address] (NexIUM) 40 mg capsule Take 1 capsule (40 mg total) by mouth daily before breakfast 90 capsule 3 5 026 Active zolpidem (AMBIEN) 5 mg tabletIndications: Sleep-Onset Insomnia Take 1 tablet (5 mg total) by mouth nightly as needed for sleep 30 tablet 2 5 026 Active zolpidem (AMBIEN) 10 mg tabletIndications: Sleep-Onset Insomnia Take 1 tablet (10 mg total) by mouth nightly as needed for sleep 30 tablet 5 Active ondansetron ODT (ZOFRAN-ODT) 4 mg disintegrating tablet Take 1 tablet (4 mg total) by mouth every 6 (six) hours as needed for nausea or vomiting 20 tablet 1 5 Active azithromycin (ZITHROMAX) 250 mg tablet 5 Active sertraline (ZOLOFT) 50 mg tablet Take 1 tablet (50 mg total) by mouth daily 5 Active ergocalciferol (VITAMIN D) 50,000 unit capsule daily 2 Active Active Problems Problem Noted Date Diagnosed [...] 06/08/2020 Assessment & Plan (06/08/2020 8:08 PM POLICY ADVISOR): Doxycycline 100 mg twice daily for 14 days Omeprazole 40 mg in the morning 30 minutes before a meal, Pepcid 40 mg at bedtime LPR discussed and Handout provided Dental infection 06/08/2020 Assessment & Plan (06/08/2020 10:31 AM POLICY ADVISOR): Doxycycline 100 mg twice daily for 14 days Omeprazole 40 mg in the morning 30 minutes before a meal, Pepcid 40 mg at bedtime Dental and oral surgery contact provided Lung nodule 12/31/2019 Tobacco user 10/22/2019 Mild intermittent asthma 11/27/2018 Encounters Date Type Department Care Team Description 03/18/2025 11:00 AM CDT Office Visit [facility] Pulmonary at [address] [place] [address] Jose Ambrosio MD Moderate persistent asthma without complication (Primary Dx); Dyspnea on exertion; Cigarette nicotine dependence without complication 03/18/2025 Telephone [facility] Gastroenterology at [address] [place] [address] Radha Christopher 03/18/2025 Telephone [facility] Gastroenterology at [address] [place] [address] Tino Darling MD 03/12/2025 8:19 PM CDT - 03/12/2025 8:20 PM CDT Emergency [facility] Emergency Department [address] [place] [address] Abdominal pain (Primary Dx) Discharge Disposition: Discharge to home or self care 03/04/2025 Orders Only [facility] [address] [facility] [address] [place] [address] Zana Allison MD MARVIN (obstructive sleep apnea) (Primary Dx) 03/03/2025 Orders Only [facility] Neurology [address], [place] [address] Farheen Medina MA MARVIN (obstructive sleep apnea) (Primary Dx) 03/03/2025 Results Follow-Up [facility] [address], [place] [address] Dawn Meadows MA Portable/Home Sleep Study 02/25/2025 11:00 AM CDT - 02/25/2025 11:59 PM CDT Hospital Encounter [facility] [address] [place] [address] MARVIN (obstructive sleep apnea) Discharge Disposition: Discharge to home or self care 02/05/2025 Orders Only [facility] Neurology [address] [address] Zana Allison MD MARVIN (obstructive sleep apnea) (Primary Dx) 02/04/2025 1:00 PM CDT - 02/04/2025 11:59 PM CDT Hospital Encounter [facility] [address] [place] [address] MARVIN (obstructive sleep apnea) Discharge Disposition: Discharge to home or self care 01/15/2025 Telephone [facility] Gastroenterology at [address], [place] [address] Radha Christopher 01/02/2025 9:45 AM CDT Office Visit [facility] Neu[facility] [address], [place] [address] Zana Allison MD MARVIN (obstructive sleep apnea) (Primary Dx); Circadian rhythm sleep disorder, delayed sleep phase type; Psychophysiological insomnia from Last 3 Months Immunizations Immunization [...] on file Legal Sex Female 9:59 AM POLICY ADVISOR Gender Identity Female 05/17/2021 11:15 AM POLICY ADVISOR Sexual Orientation Straight 10/08/2020 8: 47 AM CDT Obstetrics History Para Term AB IAB SAB Ectopic Multiple Livin g Live Births 5 5 5 Date Outcome GA Total Labor Labor/2nd/3rd Weight Sex Type Anes PTL Minerva A1 A5 Name Clin Term Term Term Term Term Last Filed Vital Signs Vital Sign Reading Time Taken Comments Blood Pressure 152/82 03/18/2025 10:58 AM CDT Pulse 87 03/18/2025 10:58 AM CDT Temperature 36.5 C (97.7 F) 03/18/2025 10:58 AM CDT Respiratory Rate 16 03/18/2025 10:58 AM CDT Oxygen Saturation 98% 03/18/2025 10:58 AM CDT Inhaled Oxygen Concentration - - Weight 67.9 kg (149 lb 9.6 oz) 03/18/2025 10:58 AM CDT Height 166.4 cm (5' 5.51) 03/18/2025 10:58 AM C DT Body Mass Index 24.51 03/18/2025 10:58 AM CDT Plan of Treatment Health Maintenance [...] Procedure Name Priority Date/Time Associated Diagnosis Comments CT ABDOMEN PELVIS W CONTRAST ED 03/12/2025 7:19 PM CDT URINALYSIS, MICROSCOPIC ONLY STAT 03/12/2025 4:13 PM CDT HCG, URINE, QUALITATIVE STAT 03/12/2025 4:13 PM CDT URINALYSIS AND REFLEX TO MICROSCOPIC AND CULTURE STAT 03/12/2025 4:13 PM CDT EGFR STAT 03/12/2025 3:30 PM CDT DIFFERENTIAL AUTO STAT 03/12/2025 3:3 0 PM CDT LIPASE STAT 03/12/2025 3:30 PM CDT COMPREHENSIVE METABOLIC PANEL STAT 03/12/2025 3:30 PM CDT CBC WITH AUTO DIFFERENTIAL STAT 03/12/2025 3:30 PM CDT PORTABLE/HOME SLEEP STUDY Routine 02/26/2025 12:44 PM CDT MARVIN (obstructive sleep apnea) PORTABLE/HOME SLEEP STUDY Routine 02/05/2025 2:55 PM CDT MARVIN (obstructive sleep apnea) COLONOSCOPY 05/10/2023 8:40 AM CDT SCREENING MAMMOGRAM BILATERAL W OTF Schedule Routine, Read Routine (OP Routine) 11/22/2021 10:02 AM CDT Screening mammogram, encounter for from Last 3 Months or Most Recently Relevant to Health Maintenance Results * CT Abdomen Pelvis W Contrast (03/12/2025 7:19 PM CDT) Anatomical Region Laterality Modality Body N/A Computed Tomogra phy 03/12/2025 7:32 PM CDT Narrative 03/12/2025 7:46 PM CDT EXAM DESCRIPTION: CT ABDOMEN PELVIS W CONTRAST REASON FOR STUDY: RLQ abdominal pain abdominal pain x2 weeks, denied nausea or vomiting at this time. TECHNIQUE: CT scan of the abdomen and pelvis performed with intravenous and without oral contrast using helical scanning technique with dynamic intravenous contrast injection. Reconstructed coronal and sagittal MPR images reviewed. All images stored on PACS. Automated exposure control was used as a dose optimization technique for this examination. CONTRAST TYPE/DOSE: 75mL of IOVERSOL 350 MG IODINE/ML INTRAVENOUS SYRINGE injected via intravenous COMPARISON: CT of the abdomen and pelvis dated 01/20/2023. FINDINGS: LOWER CHEST: No significant pulmonary abnormalities. No effusion. LIVER: Normal size. Subcentimeter right hepatic lobe hypodensity small to adequately characterize but statistically likely representing a benign cyst. No suspicious hepatic lesions. GALLBLADDER: No stones identified. No wall thickening or inflammatory changes. BILE DUCTS: No intrahepatic or extrahepatic ductal dilatation. SPLEEN: Normal size. No focal lesions. PANCREAS: No identified cystic or solid masses. No significant calcifications. No adjacent inflammation or peripancreatic fluid collections. Pancreatic duct not dilated. ADRENALS: Normal. KIDNEYS/URINARY TRACT: No identified significant cystic or solid masses. No visualized stones. No hydronephrosis or hydroureter. Symmetric enhancement. Urinary bladder is unremarkable. GI: No dilated bowel loops. No obvious wall thickening. Normal appendix. No significant diverticular disease. PERITONEUM: No ascites or free air. RETROPERITONEUM: No mass or adenopathy. REPRODUCTIVE: An IUD is noted within the endometrial cavity with arms extended in the fundal region, in standard positioned. VASCULATURE: No abdominal aortic aneurysm. MUSCULOSKELETAL: No acute abnormality. Multilevel degenerative changes of the spine. OTHER: No other abnormality. IMPRESSION: No acute intra-abdominal/pelvic abnormality. THIS IS AN ELECTRONICALLY VERIFIED FINAL REPORT 03/12/2025 7:46 PM - Electronically signed by Joshua Balbuena M.D. MF: [email or web address] Report ID: [id number] Reading Location: [id number] Procedure Note Joshua Balbuena, DO - 03/12/2025 EXAM DESCRIPTION: CT ABDOMEN PELVIS W CONTRAST REASON FOR STUDY: RLQ abdominal pain abdominal pain x2 weeks, denied nausea or vomiting at this time. TECHNIQUE: CT scan of the abdomen and pelvis performed with intravenousand without oral contrast using helical scanning technique with dynamic intravenous contrast injection. Reconstructed coronal and sagittal MPRimages reviewed. All images stored on PACS. Automated exposure control was usedas a dose optimization technique for this examination. CONTRAST TYPE/DOSE: 75mL of IOVERSOL 350 MG IODINE/ML INTRAVENOUSSYRINGE injected via intravenous COMPARISON: CT of the abdomen and pelvis dated 01/20/2023. FINDINGS: LOWER CHEST: No significant pulmonary abnormalities. No effusion. LIVER: Normal size. Subcentimeter right hepatic lobe hypodensity smallto adequately characterize but statistically likely representing a benigncyst. No suspicious hepatic lesions. GALLBLADDER: No stones identified. No wall thickening or inflammatory changes. BILE DUCTS: No intrahepatic or extrahepatic ductal dilatation. SPLEEN: Normal size. No focal lesions. PANCREAS: No identified cystic or solid masses. No significant calcifications. No adjacent inflammation or peripancreatic fluidcollections. Pancreatic duct not dilated. ADRENALS: Normal. KIDNEYS/URINARY TRACT: No identified significant cystic or solid masses.No visualized stones. No hydronephrosis or hydroureter. Symmetricenhancement. Urinary bladder is unremarkable. GI: No dilated bowel loops. No obvious wall thickening. Normalappendix. No significant diverticular disease. PERITONEUM: No ascites or free air. RETROPERITONEUM: No mass or adenopathy. REPRODUCTIVE: An IUD is noted within the endometrial cavity with arms extended in the fundal region, in standard positioned. VASCULATURE: No abdominal aortic aneurysm. MUSCULOSKELETAL: No acute abnormality. Multilevel degenerative changesof the spine. OTHER: No other abnormality. IMPRESSION: No acute intra-abdominal/pelvic abnormality. THIS IS AN ELECTRONICALLY VERIFIED FINAL REPORT 03/12/2025 7:46 PM - Electronically signed by Joshua Balbuena M.D. MF: [email or web address] Report ID: [id number] Reading Location: [place] [address] us Adore Cardenas NP IMG CT PROCEDURES Final Resul t * (ABNORMAL) Urinalysis reflex to microscopic and culture Urine (03/12/2025 4:13 PM CDT) Color, ur Yellow Yellow Clarity, ur Clear Clear [facility] ([place]) Specific gravity, ur 1.022 1.003 - 1.030 [facility] ([place]) pH, urine 5.5 [facility] ([place]) Comment: Interpretive Data U rine pH is affected by diet, medications, systemic acid-base disturbances, and renal tubular function. pH may affect urinary stone formation. For example, urine pH below 6.0 may help reduce the tendency for calcium phosphate stones and pH greater than 6.0 may reduce the tendency for uric acid stone formation. Source: [facility] Current Interpretive Data was last revised on [...] [facility] ([place]) Leukocyte esterase, ur 1+(A) Negative [facility] ([place]) UA reflex comment Reflex to microscopic UA will be performed. [facility] ([place]) Urine 03/12/2025 4:13 PM CDT 03/12/2025 4:39 PM CDT us Adore Cardenas NP LAB MICROBIOLOGY - GENERAL OR DERABLES Final Result [facility] ([place]) [address] [facility] [address] * hCG, urine, qualitative (03/12/2025 4:13 PM CDT) HCG, ur Negative Negative Urine 03/12/2025 4:13 PM CDT 03/12/2025 4:38 PM CDT Adore Cardenas EYEWEAR CONSULTANT LAB URINE ORDERABLES Final Re sult Performing Organization Address [facility] Co de Phone Number [facility] DAV[facility] ORTI[facility] ([place]) [address] [facility] [place] [address] * (ABNORMAL) Urinalysis, microscopic only (03/12/2025 4:13 PM CDT) WBC, ur 0-5 0 - 5 /HPF RBC, ur 0-2 0 - 2 /HPF [facility] ([place]) Epithelial cells, squamous, ur 6-10(A) 0 - 5 /HPF [facility] ([place]) Yeast, ur Trace(A) [facility] ([place]) Mucous, ur Present(A) [facility] A ([place]) Hyaline casts, ur 1-5 0 - 10 /LPF [facility] ([place]) Culture Reflex Comment Reflex conditions for urine culture (WBC >10) not met. [facility] ([place]) Urine 03/12/2025 4:13 PM CDT 03/12/2025 4:39 PM CDT us Adore Cardenas EYEWEAR CONSULTANT LAB URINE ORDERABLES Final Re sult Performing Organization Address [facility]/ZIP Co de Phone Number [facility] ([place]) [address] [facility] [place] [address] * eGFR (03/12/2025 3:30 PM CDT) eGFR >90 >=60 mL/min/1. 73 m2 Comment: [...] interpretive data was last reviewed 2021. Blood 03/12/2025 3:30 PM CDT 03/12/2025 4:16 PM CDT us Adore Cardenas NP LAB BLOOD ORDERABLES Final Re sult [facility]ID [facility] ([place]) [address] [facility] [place] [address] * Differential, auto (03/12/2025 3:30 PM CDT) Pathologist [facility] Neutrophil abs 4.96 1.50 - 6.50 K/cumm Imm gran abs 0.02 0.00 - 0.10 K/cumm [facility] ([place]) Lymphocyte abs 2.70 0.80 - 3.30 K/cumm [facility] ([place]) Monocyte abs 0.64 0.20 - 0.80 K/cumm [facility] ([place]) Eosinophil abs 0.14 0.00 - 0.50 K/cumm [facility] ([place]) Basophil abs 0.03 0.00 - 0.10 K/cumm [facility] ([place]) Neutrophil pct 58.5 % [facility] ([place]) Comment: Interpretive Data Percent cell count reference ranges are not reported, since discordance with absolute values may lead to misinterpretation of CBC data. Current Interpretive Data was last revised on 2017. Imm gran pct 0.2 % [facility] ([place]) Comment: Interpretive Data Percent cell count reference ranges are not reported, since discordance with absolute values may lead to misinterpretation of CBC data. Current Interpretive Data was last revised on 2017. Lymphocyte pct 31.8 % [facility] ([place]) Comment: Interpretive Data Percent cell count reference ranges are not reported, since discordance with absolute values may lead to misinterpretation of CBC data. Current Interpretive Data was last revised on 2017. Monocyte pct 7.5 % [facility] ([place]) Comment: Interpretive Data Percent cell count reference ranges are not reported, since discordance with absolute values may lead to misinterpretation of CBC data. Current Interpretive Data was last revised on 2017. Eosinophil pct 1.6 % [facility] ([place]) Comment: Interpretive Data Percent cell count reference ranges are not reported, since discordance with absolute values may lead to misinterpretation of CBC data. Current Interpretive Data was last revised on 2017. Basophil pct 0.4 % [facility] ([place]) Comment: Interpretive Data Percent cell count reference ranges are not reported, since discordance with absolute values may lead to misinterpretation of CBC data. Current Interpretive Data was last revised on 2017. Blood 03/12/2025 3:30 PM CDT 03/12/2025 4:16 PM CDT us Adore Cardenas EYEWEAR CONSULTANT LAB BLOOD ORDERABLES Final Re sult [facility] ANG[facility] ([place]) [address] [facility] [place], [place] [id number] * CBC with auto differential (03/12/2025 3:30 PM CDT) WBC 8.49 3.80 - 9.90 K/cumm Hgb 13.3 11.9 - 15.5 g/dL [facility] ([place]) Hct 38.9 35.6 - 45.5 % [facility] ([place]) Plt 258 150 - 400 K/cumm [facility] ([place]) MPV 10.8 9.1 - 12.3 fL [facility] ([place]) RBC 4.33 3.90 - 5.20 M/cumm [facility] ([place]) MCV 89.8 81.3 - 96.4 fL [facility] ([place]) MCH 30.7 27.1 - 33.3 pg [facility] ([place]) MCHC 34.2 32.3 - 35.7 g/dL [facility] ([place]) RDW CV 11.9 11.1 - 14.9 % [facility] ([place]) RDW SD 38.9 35.7 - 48.1 fL [facility] ([place]) NRBC abs 0.00 0.00 - 0.01 K/cumm [facility] ([place]) Blood 03/12/2025 3:30 PM CDT 03/12/2025 4:16 PM CDT Adore Cardenas EYEWEAR CONSULTANT LAB BLOOD ORDERABLES Final Re sult Performing Organization Address City/[facility]/ZIP Co de Phone Number [facility] ([place]) [address] [facility] [place] [address] * Lipase (03/12/2025 3:30 PM CDT) Lipase 37 10 - 99 Units/L [facility] ([place]) Blood 03/12/2025 3:30 PM CDT 03/12/2025 4:16 PM CDT Adore Cardenas EYEWEAR CONSULTANT LAB BLOOD ORDERABLES Final Re sult [facility] ([place]) 1 [facility] [place] [address] * (ABNORMAL) Comprehensive metabolic panel (03/12/2025 3:30 PM CDT) Sodium 140 135 - 145 mmol/L [facility] ([place]) Potassium, pl 3.7 3.3 - 4.9 mmol/L [facility] ([place]) Chloride 106 97 - 110 mmol/L [facility] ([place]) CO2 20(L) 22 - 32 mmol/L [facility] ([place]) Anion gap 14 2 - 15 mmol/L [facility] ([place]) BUN 14 6 - 25 mg/dL [facility] ([place]) Creatinine 0.75 0.60 - 1.10 mg/dL [facility] ([place]) Glucose 152 70 - 199 mg/dL [facility] ([place]) [...] interpretive data was last revised 2022. Calcium 9.5 8.5 - 10.3 mg/dL [facility] ([place]) Bilirubin, total 0.2 0.1 - 1.2 mg/dL [facility] ([place]) Protein, pl 7.3 6.5 - 8.5 g/dL [facility] ([place]) Albumin 4.5 3.5 - 5.0 g/dL [facility] ([place]) Alk phos 92 40 - 130 Units/L [facility] ([place]) ALT 20 7 - 45 Units/L [facility] ([place]) AST 23 10 - 45 Units/L [facility] ([place]) Blood 03/12/2025 3:30 PM CDT 03/12/2025 4:16 PM CDT us Adore Cardenas NP LAB BLOOD ORDERABLES Final Re sult [facility] ([place]) [address] [facility] [place] [address] * Portable/Home Sleep Study (02/26/2025 12:44 PM [...] 1b. This study was performed using a Actiance apnea Link portable monitoring unit, a type [...] 1b. This study was performed using a Actiance apnea Link portable monitoring unit, a type [...] quality. 4. Avoid alcohol sedatives and other BIOFUELS OPERATIONS MANAGER depression that may worsen sleep and disrupt [...] Blake MD - 05/10/2023 8:40 AM CDT [facility] Patient Name: Karena Ramey Procedure Date: 05/10/2023 8:40 AM Date of : 1975 Admit Type: Outpatient Age: 48 Gender: Female Attending MD: Mary Ann Blake M.D. Room: [facility] ENDOSCOPY ROOM 1 Note Status: Finalized Patient [...] under direct vision. The Pediatric Colonoscope [id number] [id number] was introducedthrough the anus and advanced to [...] 8:40 AM Procedure Code(s): --- Professional --- 97768, Colonoscopy, flexible; with biopsy, single or multiple Diagnosis Code(s): --- Professional --- Z12.11, Encounter for screening for malignant neoplasm of colon K64.8, Other hemorrhoids D12.8, Benign neoplasm of rectum CPT copyright 2020 [employer]. All rights reserved. The codes documented in this report are preliminary and upon molder meat reviewmay be revised to meet current compliance requirements. Recognized by the [place] [employer] for promoting quality [...] Most Recently Relevant to Health Maintenance Insurance [facility] Advance Directives For more information, please contact: [phone] * Full Code (Latest Code Status on File) Date Activated Date Inactivated Comments 05/10/2023 8:38 AM 05/10/2023 2:54 PM * Full Code Date Activated Date Inactivated Comments 05/10/2023 8:38 AM 05/10/2023 8:38 AM * Full Code Date Activated Date Inactivated Comments 05/20/2021 9:03 AM 05/20/2021 3:06 PM * Full Code Date Activated Date Inactivated Comments 05/20/2021 9:03 AM 05/20/2021 9:03 AM Care Teams Sustainability Coordinator Relationship Specialty Start Date End Date Tino Darling MD [address] [place] [address] DR MARINO B [address] [address] PCP - General Family Medicine 05/18/22
--- OUTSIDE RECORDS SUMMARY | 2025-03-26 09:07 | XMS_ITS | Clinical Summary ---
Author Organization [facility] Address [facility] [place] [address] Phone Care Team Providers Care Blasting Clay Miner Name Role Phone Tino Darling MD Primary Care Provider [phone] Cristian Mcginnis MD Unavailable [phone] Allergies Active Allergy Reactions Criticality Noted Date [...] Department Care Team Description 02/24/2025 [facility] [address] [place] [address] Tino Darling MD Encounter for screening mammogram [...] Comments Blood Pressure 120/80 08/29/2022 9:21 AM REHABILITATION PROGRAM COORDINATOR Pulse 70 08/29/2022 9:21 AM REHABILITATION PROGRAM COORDINATOR Temperature 35.6 C (96 F) 08/29/2022 9:21 AM REHABILITATION PROGRAM COORDINATOR Respiratory Rate 17 08/29/2022 9:21 AM REHABILITATION PROGRAM COORDINATOR Oxygen Saturation 99% 08/29/2022 9: 21 AM REHABILITATION PROGRAM COORDINATOR Inhaled Oxygen Concentration - - Weight 64.3 kg (141 lb 11.2 oz) 08/29/2022 9:21 AM REHABILITATION PROGRAM COORDINATOR Height 165.1 cm (5' 5) 08/29/2022 9:21 AM REHABILITATION PROGRAM COORDINATOR Body Mass Index 23.58 08/29/2022 9:21 AM REHABILITATION PROGRAM COORDINATOR Plan of Treatment Upcoming Encounters Date Type Department Care Team (Late st Contact Info) Description 04/14/2025 9:45 AM CDT [facility] [address] [place] [address] Tino Darling MD [address] [place] [address] [address] [place] [address] Discharge Disposition: Discharged to home or Selfcare [...] is made to exams dated: 02/24/2023, 03/27/2023 [facility], 11/22/2021 [facility], and 10/02/2018 [facility]. BREAST TISSUE:There are scattered areas of fibroglandular [...] exam. Electronically signed by: Jacqui reed/jyoti:04/10/2024 12:39:35 Quarter Supervisor(s): RT Palomo(R)(M), [facility] letter sent: Normal Exam Reading location: [facility] Mammogram BI-RADS: Category 1: Negative Procedure Note [...] is made to exams dated: 02/24/2023, 03/27/2023 [facility], 11/22/2021 [facility], and 10/02/2018 [facility]. BREAST TISSUE:There are scattered areas of fibroglandular [...] exam. Electronically signed by: Jacqui reed/jyoti:04/10/2024 12:39:35 Quarter Supervisor(s): RT Palomo(R)(M), [facility] letter sent: Normal Exam Reading location: [place] Mammogram BI-RADS: Category 1: Negative Tino Darling MD IMG MAMMO ORDERABLES Final Res ult from Last 3 Months or Most Recently Relevant to Health Maintenance Insurance [place] [id number] MEDICAID [employer] Care Teams Blasting Clay Miner Relationship Specialty Start Date End Date Tino Darling MD [address] [place] [address] [address] [place] [address] PCP - General Family Medicine 12/11/20 Cristian Mcginnis MD [address] [place] [address] Consulting Physician Neurology 08/29/22
== END 2025-03-26 09:13 | disposition home or self-care (01) ==
PROVIDERS: Emergency Provider Nurse Practitioner; PCP Family Medicine
DX: J06.9 Acute upper respiratory infection, unspecified (principal); F17.210 Nicotine dependence, cigarettes, uncomplicated; J45.909 Unspecified asthma, uncomplicated; K21.9 Gastro-esophageal reflux disease without esophagitis; M48.02 Spinal stenosis, cervical region; F41.9 Anxiety disorder, unspecified
CPT/HCPCS: 87081; 87880; 99213; G0463

== ENCOUNTER 2025-05-28 08:58 | Emergency (ER) | payer OTHER, SELFPAY ==
--- NOTE | ~2025-05-28 | XR_ITS ---
EXAMINATION: XR chest 2V, 05/28/2025 9:30 PRODUCT MARKETING EXECUTIVE HISTORY: cough x2 mos. Smoker COMPARISON: No comparisons available. Technique: 2 views obtained. Findings: The lungs are clear, no effusion. No pneumothorax. Heart is normal size. Mediastinal and hilar contours are within normal limits. Bony thorax no acute abnormality. Impression: No acute cardiopulmonary abnormality. Reviewed, dictated and finalized at location P. UCT MARKETING EXECUTIVE Impression: No acute cardiopulmonary abnormality.
[2025-05-28 09:02] VITALS: BP 124/82; PULSE 100; RESP 14; TEMP 37.2; O2SAT 99
--- NOTE | 2025-05-28 09:29 | ED_ITS ---
HPI - URI/Sore Throat General Chief Complaint: Upper Respiratory Infection Stated Complaint: coughing/wheezing Time Seen by Provider: 05/28/25 09:06 Source: patient, RN notes reviewed and old records reviewed Mode of arrival: ambulatory Limitations: no limitations History of Present Illness HPI Narrative: 50-year-old female patient with history of asthma, presents today approximately 2 month history of productive cough, chest wall pain, fatigue. She also reports some shortness of breath that is worse than her baseline. She was seen here at [facility] on 03/26/2025 where, at that time, she had already taken a course of azithromycin earlier in the month. At that time her rapid strep and strep culture were negative. She took a course of azithromycin on 05/07/25 as well as a Medrol Dosepak after seeing her PCP on 05/19/2025. Patient also had some leftover doxycycline at home from a previous prescription for which she took a week's worth. Patient states none of these medications helped her symptoms. She also took some [id number] Sudafed as well as albuterol nebulizer treatments. Patient smokes half to 3/4 of a pack of cigarettes per day. Related Data Home Medications ?Medication ?Instructions ?Recorded ?Confirmed ?Last Taken ?Type albuterol sulfate 90 mcg/actuation 2 puff inhalation B ID PRN sob 09/18/19 10/17/23 Unknown History aerosol inhaler (ProAir HFA) hydroxyzine HCl 25 mg tablet 25 mg PO TID 02/10/2104/02 Unknown History budesonide-formoterol HFA 160 2 puff inhalation BID 10/17/23 Unknown History mcg-4.5 mcg/actuation aerosol inhaler (Symbicort) esomeprazole magnesium 40 mg mg 09/02/24 Unknown Hist ory capsule,delayed release famotidine 40 mg tablet mg 03/12/25 Unknown History sertraline 50 mg tablet mg 03/12/25 Unknown History Allergies Allergy/AdvReac Type Severity Reaction Status Date / Time latex Allergy Intermediate Hives Verified 05/28/25 09:06 levofloxacin Allergy Intermediate HIVES Verified 05/28/25 09:06 Sulfa (Sulfonamide Allergy Intermediate HIVES Verified 05/28/25 09:06 Antibiotics) Penicillins Allergy Mild Swelling Verified 05/28/25 09:06 [facility] Past Medical History Medical History Cervical stenosis of spinal canal GERD (gastroesophageal reflux disease) Dental abscess Sinusitis per patient history Anxiety UTI (urinary tract infection) Asthma Surgical History Surgical History History of orthopedic surgery left shoulder Family History Family History Mother Family history non-contributory Social History Social History Smoking packs per day: 0.5 Smoking cigarettes per day: 10.0 Smoking status: Current every day smoker Tobacco type: cigarettes Alcohol intake: current Alcohol use details: Occasional Substance use: never Living arrangements: with family Gender identity (if verbalized by the patient): Female Sexual Orientation (if Verbalized by the Patient): Straight or Heterosexual Spiritual care concerns: No Comments At time of signature, I have reviewed and agree with nursing past medical, surgical, social and family history unless otherwise noted. Please see nursing chart for further information. There is no relevant family history pertinent to the presenting complaint Exam Narrative: GENERAL: Well-appearing, well-nourished, and in no acute distress. HEAD: Normocephalic, atraumatic. EYES: EOMI. No redness or drainage. Conjunctivae normal. ENT: Mucous membranes pink and moist. Nares clear. No rhinorrhea. TMs normal bilaterally. Throat normal. Uvula midline. NECK: Normal AROM. Supple. No lymphadenopathy. CHEST: No respiratory distress. Clear to auscultation. HEART: Regular rate and rhythm. No murmur appreciated. EXTREMITIES: Normal range of motion. No edema. SKIN: Warm, dry, no rash. Capillary refill normal. Normal skin turgor. NEURO: No focal deficits. Alert and oriented x3. Gait steady. PSYCH: Normal affect. No signs of depression or anxiety. Course Course Level of Care: Express Care Visit Vital Signs Vital signs: Vital Signs Temperature 99 F 05/28/25 09:02 Pulse Rate 100 05/28/25 09:02 Respiratory Rate 14 05/28/25 09:02 Blood Pressure 124/82 05/28/25 09:02 Pulse Oximetry 99 05/28/25 09:02 Oxygen Delivery Room Air 05/28/25 09:02 Temperature 99 F 05/28/25 09:02 Pulse Rate 100 05/28/25 09:02 Respiratory Rate 14 05/28/25 09:02 Blood Pressure 124/82 05/28/25 09:02 Pulse Oximetry 99 05/28/25 09:02 Oxygen Delivery Room Air 05/28/25 09:02 Reviewed MDM - URI/Sore Throat MDM Narrative Medical decision making narrative: 50-year-old female patient with history of asthma, presents today approximately 2 month history of productive cough, chest wall pain, fatigue. She also reports some shortness of breath that is worse than her baseline. She was seen here at [facility] on 03/26/2025 where, at that time, she had already taken a course of azithromycin earlier in the month. At that time her rapid strep and strep culture were negative. She took a course of azithromycin on 05/07/25 as well as a Medrol Dosepak after seeing her PCP on 05/19/2025. Patient also had some leftover doxycycline at home from a previous prescription for which she took a week's worth. Patient states none of these medications helped her symptoms. She also took some [id number] Sudafed as well as albuterol nebulizer treatments. Patient smokes half to 3/4 of a pack of cigarettes per day. Patient has a normal physical exam. Chest x-ray normal. Patient's cough now is likely post infectious. Will prescribe her some Tessalon Perles to see if this will help calm down her cough. Patient is happy to notes she does not currently have pneumonia and agrees to follow-up with her PCP. Vital signs stable. Differential Diagnosis Differential diagnosis: Likely upper respiratory infection, otitis media, sinusitis, viral infection and other (Pneumonia, asthma exacerbation) Imaging Data Radiologist's impression: ITS Impressions Chest X-Ray 05/28/25 10:09 Impression: No acute cardiopulmonary abnormality. Critical Care Time Critical Care Time Critical Care Time: No Discharge Plan Discharge Clinical Impression: Bronchitis Patient Disposition: Home Condition: Stable Instructions: Acute Bronchitis (ED) Additional Instructions: Please continue your asthma at occasions at home in take the Tessalon Perles as prescribed. Follow-up with your PCP. Go to the ER immediately if symptoms worsen. Patient Language: Niuean Prescriptions: New benzonatate 200 mg capsule 200 mg PO TID PRN (Reason: cough) Qty: 20 0RF No Action famotidine 40 mg tablet sertraline 50 mg tablet albuterol sulfate [ProAir HFA] 90 mcg/actuation Hfa Aerosol Inhaler 2 puff INHALATION BID PRN (Reason: sob) hydroxyzine HCl 25 mg Tablet 25 mg PO TID budesonide-formoterol [Symbicort] 160-4.5 mcg/actuation HFA aerosol inhaler 2 puff INHALATION BID esomeprazole magnesium 40 mg capsule,delayed release(DR/EC) Follow-up/Referrals: Phong,Tino Blackburn MD [Primary Care Provider] Time of Disposition: 10:27
--- OUTSIDE RECORDS SUMMARY | 2025-05-28 11:17 | XMS_ITS | Encounter Summary ---
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
--- OUTSIDE RECORDS SUMMARY | 2025-05-28 11:17 | XMS_ITS | Patient Health Record ---
Author Organization [facility] Address [address] [facility] [address] [place] [address] Care Team Providers Care Roller Stainer Name Role Phone Prudencio Goetz Unavailable [phone] Reason For Referral No Information Plan Of Treatment No Information
--- OUTSIDE RECORDS SUMMARY | 2025-05-28 11:17 | XMS_ITS | Clinical Summary ---
Author Organization [facility] Address [facility] [place] [address] Phone Care Team Providers Care Senior Gl Accountant Name Role Phone Tino Darling MD Primary Care Provider [phone] Cristian Mcginnis MD Unavailable [phone] Allergies Active Allergy Reactions Criticality Noted Date [...] Encounters Date Type Department Care Team Description 04/16/2025 10:01 AM CDT - 04/16/2025 11:59 PM CDT [facility] Ultrasound [address] [place] [address] Tino Darling MD Discharge Disposition: Discharged to home or Selfcare 04/14/2025 9:39 AM CDT - 04/14/2025 11:59 PM CDT [facility] Mammography [address] [place] [address] Tino Darling MD Discharge Disposition: Discharged to home or Selfcare 04/14/2025 Travel 03/28/2025 Transcribe Orders [facility] Central Scheduling [address] [place] [address] Tino Darling MD Pelvic and perineal pain (Primary Dx) from Last 3 Months Family History Relation Name Status Comments Father Alive Mother Alive Social History Tobacco Use Types Packs/Day Years Used Date Smoking Tobacco: Every Day Cigarettes 08 08 Started: 07/10/1999 Smokeless Tobacco: Never Tobacco Cessation:Ready [...] Comments Blood Pressure 120/80 08/29/2022 9:21 AM CALIBRATION CHECKER Pulse 70 08/29/2022 9:21 AM CALIBRATION CHECKER Temperature 35.6 C (96 F) 08/29/2022 9:21 AM CALIBRATION CHECKER Respiratory Rate 17 08/29/2022 9:21 AM CALIBRATION CHECKER Oxygen Saturation 99% 08/29/2022 9:21 AM CALIBRATION CHECKER Inhaled Oxygen Concentration - - Weight 64.3 kg (141 lb 11.2 oz) 08/29/2022 9:21 AM CALIBRATION CHECKER Height 165.1 cm (5' 5) 08/29/2022 9:21 AM CALIBRATION CHECKER Body Mass Index 23.58 08/29/2022 9:21 AM CALIBRATION CHECKER Plan of Treatment Health Maintenance Due Date Last Done Comments Hepatitis C Virus (HCV) Screening 1975 Varicella Immunization (1 of 2 - 13+ 2-dose series) 1988 Hepatitis B Immunization (1 of 3 - 19+ 3-dose series) 1994 Pneumococcal Immunization (50+ years) (1 of 2 - PCV) 1994 Pap Smear 1996 Cervical Cancer Screening (CCS) 2005 HPV/Cotest 2005 Cologuard 2020 Immunochemical Fecal Occult Blood 2020 Influenza Immunization (#1) 03/10/202504/10, 04/26/2017, 05/11/2016 SARS-COV-2 Immunization ( season) 2025 Lung Cancer Screening 2025 01/23/2023 , 01/20/2023, 08/18/2022, Additional history exists Zoster Immunization (1 of 2) 2025 Mammogram 04/14/2026 04/14/2025, 08/2023, 02/24/2023, Additional history exists Colonoscopy 05/10/2033 05/10/2023 Colorectal Cancer Screening 05/10/2033 Respiratory Syncytial Virus (RSV) Immunization (Adult) (1 - 1-dose 75+ series) 2050 DTaP/Tdap/Td Immunization Discontinued 05/11/2016, 02/2013 TdaP Immunization Completed 05/11/2016, 10/15/2012 Discussion re Starting/Frequency of Mammograms Discontinued 04/14/2025, 04/10/2024, 03/27/2023, Additional history exists Human Papillomavirus (HPV) Immunization Aged Out No longer eligible based on patient's age to complete this topic Meningococcal Immunization (ACWY) Aged Out No longer eligible based on patient's age to complete this topic Rotavirus Immunization Aged Out No lo nger eligible based on patient's age to complete this topic Procedures Procedure Name Priority Date/Time Associated Diagnosis Comments US PELVIS COMPLETE WITH TRANSVAGINAL Routine 04/16/2025 10:49 AM CDT Pelvic and perineal pain TIESHA SCREENING BILATERAL DIGITAL W CAD W СВЕТЛАНА Routine 04/14/2025 10:09 AM CDT Encounter for screening mammogram for breast cancer from Last 3 Months Results * US PELVIS COMPLETE WITH TRANSVAGINAL (04/16/2025 10:49 AM CDT) Anatomical Region Laterality Modality Abdomen N/A Ultrasound 04/16/2025 10:4 9 AM CDT Impressions 04/17/2025 5:23 PM CDT IMPRESSION: 1. Intrauterine device with no gross malalignment. 2. Mildly heterogeneous uterus. Narrative 04/17/2025 5:23 PM CDT DICTATING PHYSICIAN: Lisa Bush D.O. - [facility] US PELVIS COMPLETE WITH TRANSVAGINAL, 04/16/2025 10:49 AM CLINICAL INDICATION: 49 years, Female. Pelvic and perineal pain unspecified side COMPARISON: CT abdomen and pelvis without contrast, 09/11/2018. TECHNIQUE: Grayscale and color Doppler sonographic images of the pelvis was obtained via a transvaginal and transabdominal approach. Doppler color flow, spectral analysis, and waveforms were obtained. FINDINGS: The uterus appears mildly heterogenous measuring 8.0 x 3.5 x 5.2 cm. No myometrial mass is noted. A linear shadowing echogenic structure is noted in the endometrial canal likely representing an IUD. The endometrial echocomplex measures up to 3.2 mm in dual wall thickness. No fluid is noted in the endometrial canal. The right ovary is not visualized. No right adnexal mass is noted. The left ovary measures 4.5 x 3.2 x 2.6 cm. Vascular flow is seen in the left ovary. A 3.2 x 2.7 x 2.5 cm simple cyst is noted in the left ovary. No free fluid is seen in the cul-de-sac. Procedure Note Lisa Bush, - 04/17/2025 DICTATING PHYSICIAN: Lisa Bush D.O. - [facility] US PELVIS COMPLETE WITH TRANSVAGINAL, 04/16/2025 10:49 AM CLINICAL INDICATION: 49 years, Female. Pelvic and perineal painunspecified side COMPARISON: CT abdomen and pelvis without contrast, 09/11/2018. TECHNIQUE: Grayscale and color Doppler sonographic images of the pelviswas obtained via a transvaginal and transabdominal approach. Doppler colorflow, spectral analysis, and waveforms were obtained. FINDINGS: The uterus appears mildly heterogenous measuring 8.0 x 3.5 x 5.2 cm. Nomyometrial mass is noted. A linear shadowing echogenic structure is notedin the endometrial canal likely representing an IUD. The endometrial echocomplex measures up to 3.2 mm in dual wall thickness.No fluid is noted in the endometrial canal. The right ovary is not visualized. No right adnexal mass is noted. The left ovary measures 4.5 x 3.2 x 2.6 cm. Vascular flow is seen in theleft ovary. A 3.2 x 2.7 x 2.5 cm simple cyst is noted in the leftovary. No free fluid is seen in the cul-de-sac. IMPRESSION: 1. Intrauterine device with no gross malalignment. 2. Mildly heterogeneous uterus. Tino Darling MD [facility] US ORDERABLES Final Result * [facility] SCREENING BILATERAL DIGITAL W CAD W СВЕТЛАНА (04/14/2025 10:09 AM CDT) Anatomical Region Laterality Modality breast Bilateral Mammography 04/14/2025 9:39 AM CDT Impressions 04/14/2025 6:03 PM CDT IMPRESSION: There is no mammographic evidence of malignancy. RECOMMENDATION: Annual screening mammography. BI-RADS 1: Negative. Narrative 04/14/2025 6:03 PM CDT [facility] SCREENING BILATERAL DIGITAL W CAD W СВЕТЛАНА EXAM DATE: 04/14/2025 9:57 AM HISTORY: 49 years year old Female. Encounter for screening mammogram for malignant neoplasm of breast TECHNIQUE: Standard bilateral mammographic views were obtained. Additional 3D tomographic mammography was also obtained. Current study was also evaluated with a Computer Aided Detection (CAD) system. COMPARISON: Comparison made with previous examination(s) dated (MG) 10-Apr-2024,(MG) 27-Mar-2023,(MG) 24-Feb-2023. FINDINGS: There are scattered areas of fibroglandular density. (Category B) No suspicious masses, calcifications, architectural distortion or other findings. Tino Darling MD IMG MAMMO ORDERABLES Final Res ult from Last 3 Months Insurance MEDICAID [place] MEDICAID [employer] Care Teams Senior Gl Accountant Relationship Specialty Start Date End Date Tino Darling MD [address] [place] [address] PCP - General Family Medicine 12/11/20 Cristian Mcginnis MD [address] [place] [address] Consulting Physician Neurology 08/29/22
--- OUTSIDE RECORDS SUMMARY | 2025-05-28 11:18 | XMS_ITS | Clinical Summary ---
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 Gender Identity Not on file Sexual Orientation [...] HPV 2005 Mammogram Screening 2015 COVID-19 Vaccine (1 - 2024-2 6 season) 2025 Influenza Adult (#1) 2025 Pneumococcal Vaccine: 50+ Ye ars (1 of 1 - PCV) 2025 Zoster Vaccines (1 of 2) 2025 Hepatitis A Vaccines Aged Out No long er eligible based on patient's age to complete this topic Meningococcal B Vaccine Aged Out No l onger eligible based on patient's age to complete this topic Meningococcal Vaccine Aged Out No dalia hanh eligible based on patient's age to complete this topic RSV Immunizations Under 20 Months Aged Out No longer eligible based on patient's age to complete this topic Insurance [facility] [address] [place] [address] Advance Directives Documents on File Type Date Recorded Patient Telephone Sex Worker Expl anation Advance Directives and Living Will 09/18/2017 POWER OF DINKEY PRESS OPERATOR FO R HEALTH CARE Advance Directives and Living Will 09/06/2017 POWER OF DINKEY PRESS OPERATOR FO R HEALTH CARE Advance Directives and Living Will 09/06/2017 POWER OF DINKEY PRESS OPERATOR FO R HEALTH CARE Advance Directives and Living Will 07/27/2017 POWER OF DINKEY PRESS OPERATOR FO R HEALTH CARE Advance Directives and Living Will 07/18/2017 POWER OF DINKEY PRESS OPERATOR FO R HEALTH CARE Advance Directives and Living Will 05/25/2017 POWER OF DINKEY PRESS OPERATOR FO R HEALTH CARE Advance Directives and Living Will 08/18/2016 POWER OF DINKEY PRESS OPERATOR FO R HEALTH CARE Advance Directives and Living Will 08/08/2016 POWER OF DINKEY PRESS OPERATOR FO R HEALTH CARE Advance Directives and Living Will 07/06/2016 POWER OF DINKEY PRESS OPERATOR FO R HEALTH CARE Advance Directives and Living Will 07/04/2016 POWER OF DINKEY PRESS OPERATOR FO R HEALTH CARE Advance Directives and Living Will 06/28/2016 POWER OF DINKEY PRESS OPERATOR FO R HEALTH CARE Care Teams University Services Program Associate Relationship Specialty Start Date End Date Verónica Stanley MD PCP - General FAMILY PRACTICE 09/26/17
--- OUTSIDE RECORDS SUMMARY | 2025-05-28 11:18 | XMS_ITS | Patient Health Record ---
Author Organization [facility] Address [address] [place] [address] Care Team Providers Care Eligibility Services Representative Name Role Phone Alejo Hinojosa Primary Care Provider [phone] Reason For Referral No Information Medications Medication SIG (Take, Route, Frequency, Duration) Notes Start Date End Date Status Flonase 50 MCG/ACT spray 1 spray by intranasal route every day in each nostril Nasal ([facility]) 02/06/2013 Active ProAir HFA 108 (90 Base) MCG/ACT inhale 2 puff by inhalation route 4 - 6 hours as needed Inhalation ([facility]) 02/06/2013 Active Mirena 20 MCG/24HR Intrauterine ([facility]) 03/23/2011 Active Plan Of Treatment No Information Insurance Providers Payer Name Payer Address Payer Phone Subscriber Number Group Number Insured Name Patient Relationship to Insured Coverage Start Date [facility]age End Date [facility] [place] [address] [place] [address] [id number] Karena Pineda Self - patient is the insured
== END 2025-05-28 10:32 | disposition home or self-care (01) ==
PROVIDERS: Emergency Provider Nurse Practitioner; PCP Family Medicine
DX: J40 Bronchitis, not specified as acute or chronic (principal); F17.210 Nicotine dependence, cigarettes, uncomplicated; J45.909 Unspecified asthma, uncomplicated; K21.9 Gastro-esophageal reflux disease without esophagitis; M48.02 Spinal stenosis, cervical region; F41.9 Anxiety disorder, unspecified
CPT/HCPCS: 71046; 99213; G0463